=== PATIENT | male | born 1950 | race Caucasian/White ===

== ENCOUNTER 2022-03-09 15:15 | Outpatient (CLI) | payer OTHER, SELFPAY | END 2022-03-09 15:16 | disposition home or self-care (01) | LOC: AMB 03-11 11:31 | PROVIDERS: PCP Physician Assistant Medical; Visit Provider Emergency Medicine | DX: R06.02 Shortness of breath (principal) | CPT/HCPCS: A0425; A0427 ==

== ENCOUNTER 2022-03-09 15:49 | Emergency (ER) | payer OTHER, SELFPAY ==
[2022-03-09] VITALS (38 sets, daily range): BP systolic 107–159; BP diastolic 61–87; PULSE 95–112; RESP 28; TEMP 37.7; O2SAT 90–99
--- NOTE | 2022-03-09 16:38 | CRLHL7_ITS ---
For Patients: As a result of the Cures Act, medical imaging exams and procedure reports are released immediately into your electronic medical record. You may view this report before your referring provider. If you have questions, please contact your health care provider. INDICATION: Chest pain. TECHNIQUE: Chest 1 views. COMPARISON: None. FINDINGS: Cardiovascular and mediastinum: Cardiomediastinal silhouette is within normal limits. Lungs and pleural spaces: Lungs are clear. No sign of pleural effusion. No pneumothorax. Bones and soft tissues: No significant findings. IMPRESSION: No acute cardiopulmonary process identified. Dictated by Cristela Monroe MD @ 03/09/2022 6:36:53 PM (Electronically Signed)
--- NOTE | 2022-03-09 16:46 | ED.WEAKNESS ---
HPI - Weakness General Chief complaint: Weakness Stated complaint: confusion Time Seen by Provider: 03/09/22 16:04 History of Present Illness HPI Narrative: 72-year-old man presenting to the emergency department accompanied by healthcare provider/homemade. Brought by EMS. Concern of weakness. Last seen by her about a week ago but spoken to on the phone 3 or 4 days ago. Today was not answering texts or phone calls. So went up to check on Mr. Meyers though had been scheduled for a visit today anyway. Mr. Meyers took an extremely long time apparently to get to the door. Was clearly weak. Dyspneic. Hard to get information from Mr. Meyers. He does admit to feeling short of air. No pain complaints. No apparent fever. Underlying history of COPD. Usually on 2 L oxygen at home. No new rashes noted. No dysuria or frequency noted. Does have a history of diabetes. Noted blood sugar to be nearly 400. No known falls. Health aide notes that nothing seems particularly amiss or disheveled in the apartment. Related Data Home Medications Medication Instructions Recorded Confirmed albuterol sulfate 90 mcg/actuation inhalation 03/09/22 aerosol inhaler amlodipine 10 mg tablet mg 03/09/22 apixaban 5 mg tablet (Eliquis) mg 03/09/22 atomoxetine 100 mg capsule mg PO 03/09/22 budesonide-formoterol HFA 160 inhalation 03/09/22 mcg-4.5 mcg/actuation aerosol inhaler (Symbicort) calcium carbonate 600 mg-vitamin tab PO 03/09/22 D3 10 mcg (400 unit) tablet carvedilol 3.125 mg tablet mg 03/09/22 clotrimazole-betamethasone 1 applic topical 03/09/22 %-0.05 % topical cream docusate sodium 100 mg capsule mg PO 03/09/22 furosemide 40 mg tablet mg 03/09/22 gabapentin 300 mg capsule mg 03/09/22 insulin aspart U-100 100 unit/mL subcut 03/09/22 (3 mL) subcutaneous pen (Novolog FlexPen U-100 Insulin aspart) insulin glargine 100 unit/mL (3 unit subcut 03/09/22 mL) subcutaneous pen (Lantus Solostar U-100 Insulin) ipratropium 0.5 mg-albuterol 3 mg ml inhalation 03/09/22 (2.5 mg base)/3 mL nebulization soln losartan 100 mg tablet mg 03/09/22 metformin 500 mg tablet mg 03/09/22 propylene glycol 0.6 % eye drops drp 03/09/22 (Systane Complete) rosuvastatin 10 mg tablet mg 03/09/22 tiotropium bromide 2.5 inhalation 03/09/22 mcg/actuation mist for inhalation (Spiriva Respimat) Allergies Allergy/AdvReac Type Severity Reaction Status Date / Time lisinopril Allergy Verified 03/09/22 16:08 Review of Systems Status of ROS: Reports: 10 or more systems reviewed and unremarkable except as noted in History and below [facility] Social History Smoking Status: Former smoker How often do you have a drink containing alcohol: never AUDIT-C Alcohol total score: 0 Non-prescribed substance use: denies use Exam Narrative: Exam Narrative: Pleasant. Little flushed in his face. Slight ptosis of the left eye versus the right. Head looks to be atraumatic. Mildly labored in breathing. Mildly tachypneic. Oropharynx is dry. Lungs with diminished breath sounds some of this might be effort. Trace crepitus generally. There is a subtle wheeze perhaps at times I think on expiration. He places the oximetry finger monitor in his mouth is if feels better to blow again something he indicates. Dentition is little ground down incidentally. Heart is tachycardic. Appears to be in a regular rhythm. Abdomen is obese soft and mildly tense. Nontender. There is some seborrheic type rash in the right lower abdomen. Extremities are dry, especially lower. Not erythematous. Lower extremities with trace dependent edema. Const: Vital Signs, click to edit/add: Vital Signs - 24 hr 03/09/22 16:14 03/09/22 16:18 03/09/22 16:30 Temperature 99.8 F H Pulse Rate 110 H 109 H Pulse Rate [Pulse Oximeter] 112 H Respiratory Rate 28 H Blood Pressure Blood Pressure [Ri ght Upper Arm] 159/75 H Pulse Oximetry 94 97 96 Oxygen Delivery Me thod Nasal Cannula Nasal Cannula Nasal Cannula Oxygen Flow Rate 2 2 03/09/22 16:32 03/09/22 16:49 03/09/22 17:10 Temperature Pulse Rate 108 H 110 H 107 H Pulse Rate [Pulse Oximeter] Respiratory Rate Blood Pressure 130/61 Blood Pressure [Ri ght Upper Arm] Pulse Oximetry 96 95 92 Oxygen Delivery Me thod Nasal Cannula Nasal Cannula Nasal Cannula Oxygen Flow Rate 2 2 2 03/09/22 17:23 03/09/22 17:25 03/09/22 17:30 Temperature Pulse Rate 112 H 110 H 106 H Pulse Rate [Pulse Oximeter] Respiratory Rate Blood Pressure 141/87 H Blood Pressure [Ri ght Upper Arm] Pulse Oximetry 90 93 98 Oxygen Delivery Me thod Nasal Cannula Nasal Cannula Nasal Cannula Oxygen Flow Rate 2 2 2 03/09/22 17:32 03/09/22 17:45 03/09/22 18:00 Temperature Pulse Rate 106 H 107 H 104 H Pulse Rate [Pulse Oximeter] Respiratory Rate Blood Pressure 155/76 H Blood Pressure [Ri ght Upper Arm] Pulse Oximetry 98 96 96 Oxygen Delivery Me thod Nasal Cannula Nasal Cannula Nasal Cannula Oxygen Flow Rate 2 2 2 03/09/22 18:02 03/09/22 18:15 03/09/22 18:30 Temperature Pulse Rate 107 H 108 H 112 H Pulse Rate [Pulse Oximeter] Respiratory Rate Blood Pressure 135/64 Blood Pressure [Ri ght Upper Arm] Pulse Oximetry 96 95 96 Oxygen Delivery Me thod Nasal Cannula Nasal Cannula Nasal Cannula Oxygen Flow Rate 2 2 2 03/09/22 18:32 03/09/22 18:45 03/09/22 19:00 Temperature Pulse Rate 104 H 105 H 102 H Pulse Rate [Pulse Oximeter] Respiratory Rate Blood Pressure 143/67 H Blood Pressure [Ri ght Upper Arm] Pulse Oximetry 96 96 96 Oxygen Delivery Me thod Nasal Cannula Nasal Cannula Nasal Cannula Oxygen Flow Rate 2 2 2 03/09/22 19:02 03/09/22 19:15 03/09/22 19:30 Temperature Pulse Rate 103 H 100 100 Pulse Rate [Pulse Oximeter] Respiratory Rate Blood Pressure 134/75 Blood Pressure [Ri ght Upper Arm] Pulse Oximetry 96 95 96 Oxygen Delivery Me thod Nasal Cannula Nasal Cannula Nasal Cannula Oxygen Flow Rate 2 2 2 03/09/22 19:50 03/09/22 20:00 03/09/22 20:02 Temperature Pulse Rate 95 98 Pulse Rate [Pulse Oximeter] Respiratory Rate Blood Pressure 121/86 Blood Pressure [Ri ght Upper Arm] Pulse Oximetry 95 97 Oxygen Delivery Me thod Nasal Cannula Nasal Cannula Nasal Cannula Oxygen Flow Rate 2 2 2 03/09/22 20:15 03/09/22 20:30 03/09/22 20:34 Temperature Pulse Rate 99 99 99 Pulse Rate [Pulse Oximeter] Respiratory Rate Blood Pressure 131/79 Blood Pressure [Ri ght Upper Arm] Pulse Oximetry 95 97 97 Oxygen Delivery Me thod Nasal Cannula Nasal Cannula Oxygen Flow Rate 2 2 03/09/22 20:49 03/09/22 21:00 03/09/22 21:02 Temperature Pulse Rate 96 96 Pulse Rate [Pulse Oximeter] Respiratory Rate Blood Pressure 107/71 Blood Pressure [Ri ght Upper Arm] Pulse Oximetry 96 97 Oxygen Delivery Me thod Oxygen Flow Rate 03/09/22 21:04 03/09/22 21:20 03/09/22 21:30 Temperature Pulse Rate 96 95 98 Pulse Rate [Pulse Oximeter] Respiratory Rate Blood Pressure Blood Pressure [Ri ght Upper Arm] Pulse Oximetry 97 97 97 Oxygen Delivery Me thod Oxygen Flow Rate 03/09/22 21:33 03/09/22 21:45 03/09/22 22:13 Temperature Pulse Rate 97 95 95 Pulse Rate [Pulse Oximeter] Respiratory Rate Blood Pressure 134/78 Blood Pressure [Ri ght Upper Arm] Pulse Oximetry 98 99 98 Oxygen Delivery Me thod Oxygen Flow Rate 03/09/22 22:15 03/09/22 16:40 Temperature Pulse Rate 97 Pulse Rate [Pulse Oximeter] Respiratory Rate Blood Pressure Blood Pressure [Ri ght Upper Arm] Pulse Oximetry 94 94 Oxygen Delivery Me thod Nasal Cannula Oxygen Flow Rate 2 Documenting provider has reviewed patient's vital signs: yes Course Vital Signs Vital signs: Initial Vital Signs Temperature 99.8 F H 03/09/22 16:14 Temperature Source Temporal Artery Scan 03/09/22 16:14 Pulse Rate 112 H 03/09/22 16:14 Respiratory Rate 28 H 03/09/22 16:14 Blood Pressure 159/75 H 03/09/22 16:14 Blood Pressure Mean 103 03/09/22 16:14 Blood Pressure Position Sitting 03/09/22 16:14 Pulse Oximetry 94 03/09/22 16:14 Oxygen Delivery Method 03/09/22 16:14 Vital Signs Temperature 99.8 F H 03/09/22 16:14 Pulse Rate 112 H 03/09/22 16:14 Respiratory Rate 28 H 03/09/22 16:14 Blood Pressure 159/75 H 03/09/22 16:14 Pulse Oximetry 94 03/09/22 16:14 Oxygen Delivery Method 03/09/22 16:14 Temperature 99.8 F H 03/09/22 16:14 Pulse Rate 97 03/09/22 22:15 Respiratory Rate 28 H 03/09/22 16:14 Blood Pressure 134/78 03/09/22 21:33 Pulse Oximetry 94 03/09/22 22:15 Oxygen Delivery Method 03/09/22 20:30 Oxygen Flow Rate 2 03/09/22 20:30 MDM - Weakness MDM Narrative Medical decision making narrative: With history of COPD and some mild wheeze as well as tachypnea labored breathing, did initiate a duo neb. This did seem to help. Remained though oxygenating well on usual 2 L via nasal cannula. Was given a total of two 500 cc normal saline boluses. Initial lactate 2. Second lactate was drawn only just prior to completing first 500 cc bolus. Recieved one dose of solu-medrol. White count slightly elevated. Unclear if representing infection or stress. Blood sugar elevated. Anticipating further cares as possible admission was just given a single dose of 10 units of regular insulin. Doing time in the emergency department markedly more clear in communication, mentation. [place] he was back to baseline though during conversation with daughter she thought he still seemed a little confused. Mr. Allen felt he was strong enough to return home. Ate a meal. Does not feel this is like his usual COPD exacerbation. Chest x-ray by my read without infiltrate. Unexpectedly d-dimer was elevated and still looking for source for infection, CTA chest was done without finding pulmonary embolus or infiltrate. Sepsis remains in differential. Blood cultures pending. Discussed my concerns and recommendations for admission though he prefers to go home. Given 1 g of Rocephin and initiated on azithromycin. Medical Records Attestation: I reviewed the patient's medical records. Lab Data Attestation: I reviewed the patient's lab results. Labs: Lab Results 03/09/22 03/09/22 03/09/22 Range/Units 16:25 16:25 16:25 WBC 11.80 H (4.50-11.00) K/uL RBC 5.18 (4.30-5.90) m/uL Hgb 14.8 (13.5-17.5) gm/dL Hct 44.9 (37.0-53.0) % MCV 87 (80-100) fL MCH 29 (26-34) pg MCHC 33 (32-36) gm/dL RDW Coeff of Paulino 14.9 (11.5-15.5) % Plt Count 263 (140-440) K/uL Neut % (Auto) 89.6 H (42.0-72.0) % Lymph % (Auto) 4.7 L (20-44) % [place] % (Auto) 5.1 (0.0-11.0) % Eos % (Auto) 0.0 (0.0-7.0) % Baso % (Auto) 0.2 (0.0-3.0) % Neut # (Auto) 10.60 H (1.7-7.0) K/uL Lymph # (Auto) 0.60 L (0.90-2.90) K/uL [place] # (Auto) 0.60 (0.00-0.90) K/UL Eos # (Auto) 0.00 (0.00-0.50) K/uL Baso # (Auto) 0.00 (0.00-0.30) K/uL D-Dimer Quant (PE/DVT) 1.12 H (0.00-0.50) ug/ml VBG pH (7.32-7.43) VBG pCO2 (40-50) mmHG VBG pO2 (25-47) mmHG VBG HCO3 (21-28) mmol/L Sodium 136 (135-149) mmol/L Potassium 4.9 (3.6-5.1) mmol/L Chloride 100 (96-114) mmol/L Carbon Dioxide 27 (20-32) mmol/L BUN 20 (7-30) mg/dL Creatinine 1.0 (0.5-1.5) mg/dL Estimated GFR 81 ml/min Glucose 342 H (60-115) mg/dL Lactate (0.5-1.9) mmol/L Calcium 8.8 (8.4-10.6) mg/dL Total Bilirubin 0.8 (0.1-1.5) mg/dL Direct Bilirubin 0.4 (0.0-0.5) mg/dL AST 43 H (12-35) U/L ALT 46 (4-50) U/L Alkaline Phosphatase 81 (40-150) U/L Troponin I 0.04 (0.01-0.04) ng/mL C-Reactive Protein 6.6 H (0.5-1.0) mg/dL Total Protein 8.1 (6.0-8.3) g/dL Albumin 4.5 (3.3-5.0) g/dL Procalcitonin 0.28 (<0.50) ng/mL Urine Color (Yellow) Urine Appearance (Clear) Urine pH (5.0-8.5) Ur Specific [place] (1.000-1.030) Urine Protein (Negative) Urine Glucose (UA) (Negative) Urine Ketones (Negative) Urine Blood (Negative) Urine Nitrite (Negative) Urine Bilirubin (Negative) Urine Urobilinogen (0.2-1.0) Ur Leukocyte Esterase (Negative) Urine RBC (0-2) Urine WBC (0-5) Ur Squamous Epith Cells (None-Few) Urine Bacteria (None) SARS-CoV-2 (PCR) (Negative) Influenza Type A (PCR) (Negative) Influenza Type B (PCR) (Negative) RSV (PCR) (Negative) POC Troponin I (0.01-0.04) ng/ml 03/09/22 03/09/22 03/09/22 Range/Units 16:25 16:25 16:25 WBC (4.50-11.00) K/uL RBC (4.30-5.90) m/uL Hgb (13.5-17.5) gm/dL Hct (37.0-53.0) % MCV (80-100) fL MCH (26-34) pg MCHC (32-36) gm/dL RDW Coeff of Paulino (11.5-15.5) % Plt Count (140-440) K/uL Neut % (Auto) (42.0-72.0) % Lymph % (Auto) (20-44) % [place] % (Auto) (0.0-11.0) % Eos % (Auto) (0.0-7.0) % Baso % (Auto) (0.0-3.0) % Neut # (Auto) (1.7-7.0) K/uL Lymph # (Auto) (0.90-2.90) K/uL [place] # (Auto) (0.00-0.90) K/UL Eos # (Auto) (0.00-0.50) K/uL Baso # (Auto) (0.00-0.30) K/uL D-Dimer Quant (PE/DVT) (0.00-0.50) ug/ml VBG pH 7.389 (7.32-7.43) VBG pCO2 50 (40-50) mmHG VBG pO2 42.9 (25-47) mmHG VBG HCO3 30 H (21-28) mmol/L Sodium (135-149) mmol/L Potassium (3.6-5.1) mmol/L Chloride (96-114) mmol/L Carbon Dioxide (20-32) mmol/L BUN (7-30) mg/dL Creatinine (0.5-1.5) mg/dL Estimated GFR ml/min Glucose (60-115) mg/dL Lactate 2.0 H (0.5-1.9) mmol/L Calcium (8.4-10.6) mg/dL Total Bilirubin (0.1-1.5) mg/dL Direct Bilirubin (0.0-0.5) mg/dL AST (12-35) U/L ALT (4-50) U/L Alkaline Phosphatase (40-150) U/L Troponin I (0.01-0.04) ng/mL C-Reactive Protein (0.5-1.0) mg/dL Total Protein (6.0-8.3) g/dL Albumin (3.3-5.0) g/dL Procalcitonin (<0.50) ng/mL Urine Color (Yellow) Urine Appearance (Clear) Urine pH (5.0-8.5) Ur Specific [place] (1.000-1.030) Urine Protein (Negative) Urine Glucose (UA) (Negative) Urine Ketones (Negative) Urine Blood (Negative) Urine Nitrite (Negative) Urine Bilirubin (Negative) Urine Urobilinogen (0.2-1.0) Ur Leukocyte Esterase (Negative) Urine RBC (0-2) Urine WBC (0-5) Ur Squamous Epith Cells (None-Few) Urine Bacteria (None) SARS-CoV-2 (PCR) (Negative) Influenza Type A (PCR) (Negative) Influenza Type B (PCR) (Negative) RSV (PCR) (Negative) POC Troponin I 0.02 (0.01-0.04) ng/ml 03/09/22 03/09/22 03/09/22 Range/Units 16:38 16:39 21:20 WBC (4.50-11.00) K/uL RBC (4.30-5.90) m/uL Hgb (13.5-17.5) gm/dL Hct (37.0-53.0) % MCV (80-100) fL MCH (26-34) pg MCHC (32-36) gm/dL RDW Coeff of Paulino (11.5-15.5) % Plt Count (140-440) K/uL Neut % (Auto) (42.0-72.0) % Lymph % (Auto) (20-44) % [place] % (Auto) (0.0-11.0) % Eos % (Auto) (0.0-7.0) % Baso % (Auto) (0.0-3.0) % Neut # (Auto) (1.7-7.0) K/uL Lymph # (Auto) (0.90-2.90) K/uL [place] # (Auto) (0.00-0.90) K/UL Eos # (Auto) (0.00-0.50) K/uL Baso # (Auto) (0.00-0.30) K/uL D-Dimer Quant (PE/DVT) (0.00-0.50) ug/ml VBG pH (7.32-7.43) VBG pCO2 (40-50) mmHG VBG pO2 (25-47) mmHG VBG HCO3 (21-28) mmol/L Sodium (135-149) mmol/L Potassium (3.6-5.1) mmol/L Chloride (96-114) mmol/L Carbon Dioxide (20-32) mmol/L BUN (7-30) mg/dL Creatinine (0.5-1.5) mg/dL Estimated GFR ml/min Glucose (60-115) mg/dL Lactate 2.4 H (0.5-1.9) mmol/L Calcium (8.4-10.6) mg/dL Total Bilirubin (0.1-1.5) mg/dL Direct Bilirubin (0.0-0.5) mg/dL AST (12-35) U/L ALT (4-50) U/L Alkaline Phosphatase (40-150) U/L Troponin I (0.01-0.04) ng/mL C-Reactive Protein (0.5-1.0) mg/dL Total Protein (6.0-8.3) g/dL Albumin (3.3-5.0) g/dL Procalcitonin (<0.50) ng/mL Urine Color Yellow (Yellow) Urine Appearance Clear (Clear) Urine pH 5.5 (5.0-8.5) Ur Specific [place] 1.015 (1.000-1.030) Urine Protein 2+ A (Negative) Urine Glucose (UA) 2+ A (Negative) Urine Ketones 2+ A (Negative) Urine Blood 1+ A (Negative) Urine Nitrite Negative (Negative) Urine Bilirubin Negative (Negative) Urine Urobilinogen 0.2 (0.2-1.0) Ur Leukocyte Esterase Negative (Negative) Urine RBC 0-2 (0-2) Urine WBC 0-2 (0-5) Ur Squamous Epith Cells None (None-Few) Urine Bacteria None (None) SARS-CoV-2 (PCR) Negative SARS-CoV-2 (Negative) Influenza Type A (PCR) Negative PCR FLU A (Negative) Influenza Type B (PCR) Negative PCR FLU B (Negative) RSV (PCR) Negative PCR RSV (Negative) POC Troponin I (0.01-0.04) ng/ml Discharge Plan Discharge Clinical Impression: Hyperglycemia, SIRS (systemic inflammatory response syndrome), Altered mental status, Dehydration Patient Disposition: Home, Self-Care Condition: Improved Additional Instructions: As I said I am concerned that he might have a more serious infection; possibly bacteria in your blood. I agree that you look much better at this point. I respect that you want to go home instead of be admitted. I would like you to focus on hydration with unsugared liquids, ideally water. You need to watch your blood sugars very carefully checking at least 4 times a day over the next few days. Blood cultures are pending here. For now given the pulmonary presentation, take the azithromycin from [facility] as prescribed starting 1st dose tonight. Prescriptions: No Action furosemide 40 mg tablet metformin 500 mg tablet ipratropium-albuterol 0.5 mg-3 mg(2.5 mg base)/3 mL solution for nebulization INHALATION carvedilol 3.125 mg tablet amlodipine 10 mg tablet clotrimazole-betamethasone 1-0.05 % cream TOPICAL docusate sodium 100 mg capsule PO gabapentin 300 mg capsule albuterol sulfate 90 mcg/actuation HFA aerosol inhaler INHALATION losartan 100 mg tablet insulin aspart U-100 [Novolog FlexPen U-100 Insulin] 100 unit/mL (3 mL) insulin pen SUBCUT rosuvastatin 10 mg tablet atomoxetine 100 mg capsule PO calcium carbonate-vitamin D3 600 mg-10 mcg (400 unit) tablet PO budesonide-formoterol [Symbicort] 160-4.5 mcg/actuation HFA aerosol inhaler INHALATION insulin glargine [Lantus Solostar U-100 Insulin] 100 unit/mL (3 mL) insulin pen SUBCUT Systane Complete 0.6 % drops Label Comments: INSTILL ONE DROP INTO BOTH EYES NEEDED Spiriva Respimat 2.5 mcg/actuation mist INHALATION Eliquis 5 mg tablet Follow Up/Referrals: Karen Ibarra PA-C [Primary Care Provider] - Stand Alone Forms: [employer] Info Instructions
[2022-03-09 16:50] LABS: Troponin, Point-of-Care* 0.02 ng/ml (0.01-0.04)
[2022-03-09 17:07] LABS: PCO2 VBG 50 mmHG (40-50); PO2 VBG 42.9 mmHG (25-47); pH VBG 7.389 (7.32-7.43)
[2022-03-09 17:08] LABS: HCO3 VBG 30 mmol/L (21-28)
[2022-03-09 17:13] LABS: Basophils Percent Auto 0.2 % (0.0-3.0); Hematocrit 44.9 % (37.0-53.0); Hemoglobin* 14.8 gm/dL (13.5-17.5); Immature Granulocytes Pct Auto 0.4 %; Lymphocytes Percent Auto 4.7 % (20-44); Mean Corpuscular HGB Conc 33 gm/dL (32-36); Mean Corpuscular Hemoglobin 29 pg (26-34); Mean Corpuscular Volume 87 fL (80-100); Monocytes Percent Auto 5.1 % (0.0-11.0); Neutrophils Percent Auto 89.6 % (42.0-72.0); Platelet Count* 263 K/uL (140-440); RDW Coefficient of Variation % 14.9 % (11.5-15.5); Red Blood Count 5.18 m/uL (4.30-5.90)
[2022-03-09 17:15] LABS: Slide Review Reflex No
[2022-03-09] MEDS: IPRAT-ALBUT 0.5-2.5 MG/3 ML NEB 1 NEB IH (17:25)
[2022-03-09 17:33] LABS: Albumin* 4.5 g/dL (3.3-5.0); Chloride* 100 mmol/L (96-114); Sodium* 136 mmol/L (135-149)
[2022-03-09 17:34] LABS: Potassium* 4.9 mmol/L (3.6-5.1)
[2022-03-09 17:34] LABS: Appearance Urine Clear (Clear); Bilirubin Urine Negative (Negative); Blood Urine 1+ (Negative); Color Urine Yellow (Yellow); Glucose Urine 2+ (Negative); Ketones Urine 2+ (Negative); Leukocyte Esterase Urine Negative (Negative); Nitrite Urine Negative (Negative); Protein Urine 2+ (Negative); Specific Gravity Urine 1.015 (1.000-1.030); Urobilinogen Urine 0.2 (0.2-1.0); pH Urine 5.5 (5.0-8.5)
[2022-03-09 17:35] LABS: Estimated Glomerular Filt Rate 81 ml/min
[2022-03-09 17:36] LABS: Alanine Aminotransferase* 46 U/L (4-50); Alkaline Phosphatase* 81 U/L (40-150); Aspartate Amino Transferase* 43 U/L (12-35); Bilirubin Direct* 0.4 mg/dL (0.0-0.5); Bilirubin Total* 0.8 mg/dL (0.1-1.5); Blood Urea Nitrogen* 20 mg/dL (7-30); Carbon Dioxide* 27 mmol/L (20-32); Total Protein* 8.1 g/dL (6.0-8.3)
[2022-03-09 17:37] LABS: Calcium* 8.8 mg/dL (8.4-10.6); D Dimer Quantitative* 1.12 ug/ml (0.00-0.50); Glucose* 342 mg/dL (60-115)
[2022-03-09 17:39] LABS: C Reactive Protein* 6.6 mg/dL (0.5-1.0)
[2022-03-09 17:45] LABS: PCR FLU A Negative PCR FLU A (Negative); PCR FLU B Negative PCR FLU B (Negative); PCR RSV Negative PCR RSV (Negative)
[2022-03-09 17:48] LABS: SARS PCR* Negative SARS-CoV-2 (Negative)
[2022-03-09 17:48] LABS: Troponin I* 0.04 ng/mL (0.01-0.04)
[2022-03-09 17:53] LABS: Procalcitonin* 0.28 ng/mL (<0.50)
[2022-03-09 18:26] LABS: RBC Urine 0-2 (0-2); WBC Urine 0-2 (0-5)
--- NOTE | 2022-03-09 19:04 | CRLHL7_ITS ---
For Patients: As a result of the Cures Act, medical imaging exams and procedure reports are released immediately into your electronic medical record. You may view this report before your referring provider. If you have questions, please contact your health care provider. INDICATION: Dyspnea, altered mental status. TECHNIQUE: CT chest pulmonary angiogram acquired with IV contrast, 95mL of Isovue 370. Coronal and sagittal reformats. COMPARISON: Earlier same day chest radiograph. FINDINGS: Central airways patent. Diffuse bronchial wall thickening. Moderate emphysema. No focal pulmonary opacity, pneumothorax, or pleural effusion. No pulmonary arterial filling defect identified. Normal cardiac size. No pericardial effusion or thoracic lymphadenopathy. The thoracic aorta is patent and normal caliber without dissection. The imaged upper abdomen demonstrates diffuse hepatic steatosis. No suspicious osseous lesion. IMPRESSION: 1. No evidence of pulmonary embolism or acute thoracic findings. 2. Emphysema and diffuse bronchial wall thickening as may be seen with bronchitis. Dictated by Darrel Thapa MD @ 03/09/2022 8:05:29 PM Please note that all CT scans at this facility use dose modulation, iterative reconstruction, and/or weight-based dosing when appropriate to reduce radiation dose to as low as reasonably achievable. Dictated by: Darrel Thapa MD @ 03/09/2022 20:05:41 (Electronically Signed)
[2022-03-09] MEDS: 0.9 % SODIUM CHLORIDE 500 ML 500 ML IV ×2 (20:15→21:25)
[2022-03-09] MEDS: GABAPENTIN 300 MG CAPSULE 600 MG PO (20:30)
[2022-03-09] MEDS: carvediloL 6.25 MG TABLET 3.125 MG PO (20:40)
[2022-03-09 21:22] LABS: Lactate* 2.4 mmol/L (0.5-1.9)
[2022-03-09] MEDS: METHYLPREDNISOLONE SOD SUCC 40 MG/ML 60 MG IVP (21:40)
[2022-03-09] MEDS: cefTRIAXone 1 GM in 0.9 % SODIUM CHLORIDE Mini-bag 100 ML IVPB (21:54)
== END 2022-03-09 23:02 | disposition home or self-care (01) ==
PROVIDERS: Emergency Provider Family Medicine; PCP Physician Assistant Medical
DX: R73.9 Hyperglycemia, unspecified (principal); R65.10 Systemic inflammatory response syndrome (SIRS) of non-infectious origin without acute organ dysfunction; R41.82 Altered mental status, unspecified
CPT/HCPCS: 36415; 71045; 71260; 80048; 80076; 81001; 82803; 82962; 83605; 84145; 84484; 85025; 85379; 86140; 87040; 87502; 87634; 87635; 94640; 96365; 96375; 99285; A9270; J0696; J2920; J7120; Q9967

== ENCOUNTER 2022-07-23 09:27 | Outpatient (CLI) | payer OTHER, SELFPAY | END 2022-07-23 09:28 | disposition home or self-care (01) | LOC: WOUND 09:27 | PROVIDERS: PCP Physician Assistant Medical; Visit Provider Nurse Practitioner Family | DX: E11.622 Type 2 diabetes mellitus with other skin ulcer (principal); L97.811 Non-pressure chronic ulcer of other part of right lower leg limited to breakdown of skin; L97.821 Non-pressure chronic ulcer of other part of left lower leg limited to breakdown of skin; L03.115 Cellulitis of right lower limb; L03.116 Cellulitis of left lower limb; I87.2 Venous insufficiency (chronic) (peripheral); Z79.4 Long term (current) use of insulin; Z79.84 Long term (current) use of oral hypoglycemic drugs | CPT/HCPCS: 99214 ==

== ENCOUNTER 2022-07-26 15:16 | Outpatient (CLI) | payer OTHER, SELFPAY | END 2022-07-26 15:17 | disposition home or self-care (01) | LOC: WOUND 15:16 | PROVIDERS: PCP Physician Assistant Medical; Visit Provider Nurse Practitioner Family | DX: E11.622 Type 2 diabetes mellitus with other skin ulcer (principal); L97.811 Non-pressure chronic ulcer of other part of right lower leg limited to breakdown of skin; L97.821 Non-pressure chronic ulcer of other part of left lower leg limited to breakdown of skin; I87.2 Venous insufficiency (chronic) (peripheral); Z79.4 Long term (current) use of insulin; Z79.84 Long term (current) use of oral hypoglycemic drugs | CPT/HCPCS: 29581 ==

== ENCOUNTER 2022-07-27 08:42 | Outpatient (CLI) | payer OTHER, SELFPAY | END 2022-07-27 08:43 | disposition home or self-care (01) | LOC: WOUND 08:42 | PROVIDERS: PCP Physician Assistant Medical; Visit Provider Nurse Practitioner Family | DX: I87.2 Venous insufficiency (chronic) (peripheral) (principal); L97.811 Non-pressure chronic ulcer of other part of right lower leg limited to breakdown of skin; L97.821 Non-pressure chronic ulcer of other part of left lower leg limited to breakdown of skin | CPT/HCPCS: 29581 ==

== ENCOUNTER 2022-08-02 10:52 | Outpatient (CLI) | payer OTHER, SELFPAY | END 2022-08-02 10:53 | disposition home or self-care (01) | PROVIDERS: PCP Physician Assistant Medical; Visit Provider Nurse Practitioner Family | DX: I87.2 Venous insufficiency (chronic) (peripheral) (principal); L97.821 Non-pressure chronic ulcer of other part of left lower leg limited to breakdown of skin; L97.811 Non-pressure chronic ulcer of other part of right lower leg limited to breakdown of skin; L03.115 Cellulitis of right lower limb; L03.116 Cellulitis of left lower limb | CPT/HCPCS: 87070; 97597; 97598; 99211 ==

== ENCOUNTER 2022-08-05 10:57 | Outpatient (CLI) | payer OTHER, SELFPAY | END 2022-08-05 10:58 | disposition home or self-care (01) | LOC: WOUND 10:57 | PROVIDERS: PCP Physician Assistant Medical; Visit Provider Family Medicine | DX: I87.2 Venous insufficiency (chronic) (peripheral) (principal); L97.811 Non-pressure chronic ulcer of other part of right lower leg limited to breakdown of skin; L97.821 Non-pressure chronic ulcer of other part of left lower leg limited to breakdown of skin; L03.115 Cellulitis of right lower limb; L03.116 Cellulitis of left lower limb | CPT/HCPCS: 99213 ==

== ENCOUNTER 2022-08-10 09:13 | Outpatient (CLI) | payer OTHER, SELFPAY | END 2022-08-10 09:14 | disposition home or self-care (01) | LOC: WOUND 09:13 | PROVIDERS: PCP Physician Assistant Medical; Visit Provider Family Medicine | DX: I87.2 Venous insufficiency (chronic) (peripheral) (principal); L03.115 Cellulitis of right lower limb; L03.116 Cellulitis of left lower limb; L97.811 Non-pressure chronic ulcer of other part of right lower leg limited to breakdown of skin; L97.821 Non-pressure chronic ulcer of other part of left lower leg limited to breakdown of skin; E11.622 Type 2 diabetes mellitus with other skin ulcer | CPT/HCPCS: 99214 ==

== ENCOUNTER 2022-08-13 11:26 | Outpatient (CLI) | payer OTHER, SELFPAY | END 2022-08-13 11:27 | disposition home or self-care (01) | LOC: WOUND 11:26 | PROVIDERS: PCP Physician Assistant Medical; Visit Provider Nurse Practitioner Family | DX: I87.2 Venous insufficiency (chronic) (peripheral) (principal); L97.811 Non-pressure chronic ulcer of other part of right lower leg limited to breakdown of skin; E11.622 Type 2 diabetes mellitus with other skin ulcer; L97.821 Non-pressure chronic ulcer of other part of left lower leg limited to breakdown of skin | CPT/HCPCS: 97597 ==

== ENCOUNTER 2022-08-20 10:48 | Outpatient (CLI) | payer OTHER, SELFPAY | END 2022-08-20 10:49 | disposition home or self-care (01) | LOC: WOUND 10:48 | PROVIDERS: PCP Physician Assistant Medical; Visit Provider Nurse Practitioner Family | DX: I89.0 Lymphedema, not elsewhere classified (principal); I87.2 Venous insufficiency (chronic) (peripheral); L97.811 Non-pressure chronic ulcer of other part of right lower leg limited to breakdown of skin; L97.821 Non-pressure chronic ulcer of other part of left lower leg limited to breakdown of skin; E11.622 Type 2 diabetes mellitus with other skin ulcer; Z79.4 Long term (current) use of insulin | CPT/HCPCS: 99213; 99214 ==

== ENCOUNTER 2022-08-27 10:52 | Outpatient (CLI) | payer OTHER, SELFPAY | END 2022-08-27 10:53 | disposition home or self-care (01) | LOC: WOUND 10:52 | PROVIDERS: PCP Physician Assistant Medical; Visit Provider Nurse Practitioner Family | DX: I87.2 Venous insufficiency (chronic) (peripheral) (principal); L97.812 Non-pressure chronic ulcer of other part of right lower leg with fat layer exposed; I89.0 Lymphedema, not elsewhere classified | CPT/HCPCS: 97597 ==

== ENCOUNTER 2022-09-03 12:38 | Outpatient (CLI) | payer OTHER, SELFPAY | END 2022-09-03 12:39 | disposition home or self-care (01) | LOC: WOUND 12:38 | PROVIDERS: PCP Physician Assistant Medical; Visit Provider Nurse Practitioner Family | DX: E11.622 Type 2 diabetes mellitus with other skin ulcer (principal); L97.811 Non-pressure chronic ulcer of other part of right lower leg limited to breakdown of skin; L97.821 Non-pressure chronic ulcer of other part of left lower leg limited to breakdown of skin; I89.0 Lymphedema, not elsewhere classified; I87.2 Venous insufficiency (chronic) (peripheral); Z79.4 Long term (current) use of insulin | CPT/HCPCS: 99212 ==

== ENCOUNTER 2022-09-15 12:38 | Outpatient (CLI) | payer OTHER, SELFPAY | END 2022-09-15 12:39 | disposition home or self-care (01) | LOC: WOUND 12:38 | PROVIDERS: PCP Physician Assistant Medical; Visit Provider Surgery | DX: S81.801A Unspecified open wound, right lower leg, initial encounter (principal); L03.115 Cellulitis of right lower limb; I89.0 Lymphedema, not elsewhere classified | CPT/HCPCS: 97597; 99213 ==

== ENCOUNTER 2022-09-17 14:22 | Outpatient (CLI) | payer OTHER, SELFPAY | END 2022-09-17 14:23 | disposition home or self-care (01) | LOC: WOUND 14:22 | PROVIDERS: PCP Physician Assistant Medical; Visit Provider Surgery | DX: I87.331 Chronic venous hypertension (idiopathic) with ulcer and inflammation of right lower extremity (principal); L97.819 Non-pressure chronic ulcer of other part of right lower leg with unspecified severity | CPT/HCPCS: 99212 ==

== ENCOUNTER 2022-09-20 15:32 | Outpatient (CLI) | payer OTHER, SELFPAY | END 2022-09-20 15:33 | disposition home or self-care (01) | LOC: WOUND 15:32 | PROVIDERS: PCP Physician Assistant Medical; Visit Provider Surgery | DX: I87.331 Chronic venous hypertension (idiopathic) with ulcer and inflammation of right lower extremity (principal); L97.819 Non-pressure chronic ulcer of other part of right lower leg with unspecified severity | CPT/HCPCS: 99212 ==

== ENCOUNTER 2022-09-22 14:43 | Outpatient (CLI) | payer OTHER, SELFPAY | END 2022-09-22 14:44 | disposition home or self-care (01) | LOC: WOUND 14:43 | PROVIDERS: PCP Physician Assistant Medical; Visit Provider Surgery | DX: I87.331 Chronic venous hypertension (idiopathic) with ulcer and inflammation of right lower extremity (principal); E11.622 Type 2 diabetes mellitus with other skin ulcer; L97.818 Non-pressure chronic ulcer of other part of right lower leg with other specified severity; Z79.4 Long term (current) use of insulin; Z79.84 Long term (current) use of oral hypoglycemic drugs | CPT/HCPCS: 99213 ==

== ENCOUNTER 2022-09-24 14:51 | Outpatient (CLI) | payer OTHER, SELFPAY | END 2022-09-24 14:52 | disposition home or self-care (01) | LOC: WOUND 14:51 | PROVIDERS: PCP Physician Assistant Medical; Visit Provider Surgery | DX: I87.331 Chronic venous hypertension (idiopathic) with ulcer and inflammation of right lower extremity (principal); L97.818 Non-pressure chronic ulcer of other part of right lower leg with other specified severity | CPT/HCPCS: 99212 ==

== ENCOUNTER 2022-09-27 15:37 | Outpatient (CLI) | payer OTHER, SELFPAY | END 2022-09-27 15:38 | disposition home or self-care (01) | LOC: WOUND 15:37 | PROVIDERS: PCP Physician Assistant Medical; Visit Provider Surgery | DX: I87.331 Chronic venous hypertension (idiopathic) with ulcer and inflammation of right lower extremity (principal); L97.818 Non-pressure chronic ulcer of other part of right lower leg with other specified severity | CPT/HCPCS: 99211 ==

== ENCOUNTER 2022-09-29 15:18 | Outpatient (CLI) | payer OTHER, SELFPAY | END 2022-09-29 15:19 | disposition home or self-care (01) | LOC: WOUND 15:18 | PROVIDERS: PCP Physician Assistant Medical; Visit Provider Surgery | DX: E11.622 Type 2 diabetes mellitus with other skin ulcer (principal); L97.819 Non-pressure chronic ulcer of other part of right lower leg with unspecified severity; I89.0 Lymphedema, not elsewhere classified; Z79.4 Long term (current) use of insulin; Z79.84 Long term (current) use of oral hypoglycemic drugs | CPT/HCPCS: 97597; 99213 ==

== ENCOUNTER 2022-10-04 07:57 | Outpatient (CLI) | payer OTHER, SELFPAY | END 2022-10-04 07:58 | disposition home or self-care (01) | LOC: WOUND 07:57 | PROVIDERS: PCP Physician Assistant Medical; Visit Provider Surgery | DX: I87.331 Chronic venous hypertension (idiopathic) with ulcer and inflammation of right lower extremity (principal); L97.819 Non-pressure chronic ulcer of other part of right lower leg with unspecified severity; I89.0 Lymphedema, not elsewhere classified | CPT/HCPCS: 99212 ==

== ENCOUNTER 2022-10-06 14:52 | Outpatient (CLI) | payer OTHER, SELFPAY | END 2022-10-06 14:53 | disposition home or self-care (01) | LOC: WOUND 14:53 | PROVIDERS: PCP Physician Assistant Medical; Visit Provider Surgery | DX: I87.331 Chronic venous hypertension (idiopathic) with ulcer and inflammation of right lower extremity (principal); E11.622 Type 2 diabetes mellitus with other skin ulcer; L97.819 Non-pressure chronic ulcer of other part of right lower leg with unspecified severity; I89.0 Lymphedema, not elsewhere classified; Z79.4 Long term (current) use of insulin; Z79.84 Long term (current) use of oral hypoglycemic drugs | CPT/HCPCS: 97597 ==

== ENCOUNTER 2022-10-08 15:23 | Outpatient (CLI) | payer OTHER, SELFPAY | END 2022-10-08 15:24 | disposition home or self-care (01) | LOC: WOUND 15:23 | PROVIDERS: PCP Physician Assistant Medical; Visit Provider Surgery | DX: I87.331 Chronic venous hypertension (idiopathic) with ulcer and inflammation of right lower extremity (principal); L97.819 Non-pressure chronic ulcer of other part of right lower leg with unspecified severity | CPT/HCPCS: 99212 ==

== ENCOUNTER 2022-10-13 15:20 | Outpatient (CLI) | payer OTHER, SELFPAY | END 2022-10-13 15:21 | disposition home or self-care (01) | LOC: WOUND 15:20 | PROVIDERS: PCP Physician Assistant Medical; Visit Provider Surgery | DX: I87.331 Chronic venous hypertension (idiopathic) with ulcer and inflammation of right lower extremity (principal); E11.622 Type 2 diabetes mellitus with other skin ulcer; L97.819 Non-pressure chronic ulcer of other part of right lower leg with unspecified severity; I89.0 Lymphedema, not elsewhere classified; Z79.4 Long term (current) use of insulin; Z79.84 Long term (current) use of oral hypoglycemic drugs | CPT/HCPCS: 99212 ==

== ENCOUNTER 2022-11-21 17:37 | Outpatient (CLI) | payer OTHER, SELFPAY | END 2022-11-21 17:38 | disposition home or self-care (01) | LOC: AMB 11-24 15:43 | PROVIDERS: PCP Physician Assistant Medical; Visit Provider Family Medicine | DX: R06.02 Shortness of breath (principal) | CPT/HCPCS: A0425; A0427 ==

== ENCOUNTER 2022-11-21 18:00 | Emergency (ER) | payer OTHER, SELFPAY ==
[2022-11-21 18:05] VITALS: BP 147/89; PULSE 84; RESP 20; TEMP 36.8; O2SAT 95; BMI 40.4
--- NOTE | 2022-11-21 18:20 | CRLHL7_ITS ---
For Patients: As a result of the Cures Act, medical imaging exams and procedure reports are released immediately into your electronic medical record. You may view this report before your referring provider. If you have questions, please contact your health care provider. Indication: Shortness breath Comparison: Single view chest March 09, 2022 Technique: PA and lateral views of the chest Findings: There are mildly increased interstitial markings likely representing minimal central bronchial thickening. No dense consolidation, effusion or pneumothorax. The cardiac silhouette is mildly prominent. The bony thorax is grossly intact. Impression: Mildly increased interstitial markings likely representing mild bronchial thickening and/or pulmonary vascular congestion. No dense consolidation. Dictated by Jose Zaldivar MD @ 11/21/2022 7:46:12 PM (Electronically Signed)
--- NOTE | 2022-11-21 18:22 | ED_ITS ---
HPI - General Adult General Chief complaint: Shortness of Breath/Dyspnea Stated complaint: Short of breath Time Seen by Provider: 11/21/22 18:03 Source: patient Mode of arrival: EMS Limitations: no limitations History of Present Illness HPI narrative: 72-year-old male coming in today complaining of increasing cough and shortness of breath. Patient has oxygen dependent COPD he. He tells me he has not had to turn up his oxygen in the last couple days. He is concerned because 2 days ago he accidentally inhaled a Colace tablet and since then his cough has increased. The cough comes and makes him feel quite short of breath. Denies fevers or chills. No changes in his appetite. No changes in his ability to do his ADLs. He does take multiple inhalers as well as DuoNebs, took a DuoNeb just prior to coming to the ED today. Past medical history significant for oxygen-dependent COPD, diabetes type 2, paroxysmal atrial flutter per the patient. He is on anticoagulation. Related Data Home Medications Medication Instructions Recorded Confirmed albuterol sulfate 90 mcg/actuation inhalation 03/09/22 07/08/22 aerosol inhaler amlodipine 10 mg tablet mg 03/09/22 07/08/22 apixaban 5 mg tablet (Eliquis) mg 03/09/22 07/08/22 atomoxetine 100 mg capsule mg PO 03/09/22 07/08/22 budesonide-formoterol HFA 160 inhalation 03/09/22 07/08/22 mcg-4.5 mcg/actuation aerosol inhaler (Symbicort) calcium carbonate 600 mg-vitamin tab PO 03/09/22 07/08/22 D3 10 mcg (400 unit) tablet carvedilol 3.125 mg tablet mg 03/09/22 07/08/22 clotrimazole-betamethasone 1 applic topical 03/09/22 07/08/22 %-0.05 % topical cream docusate sodium 100 mg capsule mg PO 03/09/22 07/08/22 furosemide 40 mg tablet mg 03/09/22 07/08/22 gabapentin 300 mg capsule mg 03/09/22 07/08/22 insulin aspart U-100 100 unit/mL subcut 03/09/22 07/08/22 (3 mL) subcutaneous pen (Novolog FlexPen U-100 Insulin aspart) insulin glargine 100 unit/mL (3 unit subcut 03/09/22 07/08/22 mL) subcutaneous pen (Lantus Solostar U-100 Insulin) ipratropium 0.5 mg-albuterol 3 mg ml inhalation 03/09/22 07/08/22 (2.5 mg base)/3 mL nebulization soln losartan 100 mg tablet mg 03/09/22 07/08/22 metformin 500 mg tablet mg 03/09/22 07/08/22 propylene glycol 0.6 % eye drops drp 03/09/22 07/08/22 (Systane Complete) rosuvastatin 10 mg tablet mg 03/09/22 07/08/22 tiotropium bromide 2.5 inhalation 03/09/22 07/08/22 mcg/actuation mist for inhalation (Spiriva Respimat) Previous Rx's Medication Instructions Recorded doxycycline hyclate 100 mg capsule 100 mg PO Q12H #14 caps 09/15/22 prednisone 20 mg tablet 20 mg PO DIRECTED 9 days #18 11/21/22 tabs Allergies Allergy/AdvReac Type Severity Reaction Status Date / Time lisinopril Allergy Verified 07/08/22 16:21 Review of Systems Status of ROS: Reports: 10 or more systems reviewed and unremarkable except as noted in History and below PFSH [facility] Social History Smoking Status: Former smoker How often do you have a drink containing alcohol: never AUDIT-C Alcohol total score: 0 Non-prescribed substance use: denies use Exam Narrative: Exam Narrative: Obese, well-developed, slightly disheveled patient in no acute distress. Alert and oriented x3. Answers questions appropriately. Mood and affect are appropriate. Thoughts are goal oriented and rational. No tangential or magical thinking noted. Patient speaks in full sentences without needing to catch his breath. HEENT: Normocephalic atraumatic. Pupils are equally round reactive to light. Extraocular muscles are intact. Conjunctivae are moist without any icterus noted. Moist mucous membranes. Cardiovascular: Heart is irregularly irregular, S1 and S2 are present without any murmurs. Lungs: Mainly clear to auscultation bilaterally he has extremely faint end- expiratory wheezes present right greater than the left. Patient takes deep breaths without any discomfort. Abdomen: Soft and nontender nondistended with normal bowel sounds. Protuberan t. No guarding or rebound. Extremities: Bilateral lower extremities show 1+ pitting edema bilaterally Skin: Well perfused without any obvious rashes. Const: Vital Signs, click to edit/add: Vital Signs - 24 hr 11/21/22 18:05 11/21/22 19:07 Temperature 98.3 F Pulse Rate [Right Pulse Oximeter] 84 Respiratory Rate 20 18 Blood Pressure [Ri ght Upper Arm] 147/89 H 147/89 H Pulse Oximetry 95 98 Oxygen Delivery Me thod Nasal Cannula Nasal Cannula Oxygen Flow Rate 2 2 Course Course ED Course: Lab work was unremarkable. Chest x-ray, read by me, does not show any acute infiltrates. EKG showed atrial fibrillation with a pulse of 85. We discussed putting him on a steroid to see if this will improve her shortness of breath and cough. I do not see no evidence of pneumonia. I do not see any need for antibiotics at this time. Vital Signs Vital signs: Initial Vital Signs Temperature 98.3 F 11/21/22 18:05 Temperature Source Temporal Artery Scan 11/21/22 18:05 Pulse Rate 84 11/21/22 18:05 Pulse Rhythm Regular 11/21/22 18:05 Pulse Strength 3+ Normal 11/21/22 18:05 Respiratory Rate 20 11/21/22 18:05 Blood Pressure 147/89 H 11/21/22 18:05 Blood Pressure Mean 108 H 11/21/22 18:05 Blood Pressure Position Supine 11/21/22 18:05 Pulse Oximetry 95 11/21/22 18:05 Oxygen Delivery Method Nasal Cannula 11/21/22 18:05 Oxygen Flow Rate 2 11/21/22 18:05 Vital Signs Temperature 98.3 F 11/21/22 18:05 Pulse Rate 84 11/21/22 18:05 Respiratory Rate 20 11/21/22 18:05 Blood Pressure 147/89 H 11/21/22 18:05 Pulse Oximetry 95 11/21/22 18:05 Oxygen Delivery Method Nasal Cannula 11/21/22 18:05 Oxygen Flow Rate 2 11/21/22 18:05 Temperature 98.3 F 11/21/22 18:05 Pulse Rate 84 11/21/22 18:05 Respiratory Rate 18 11/21/22 19:07 Blood Pressure 147/89 H 11/21/22 19:07 Pulse Oximetry 98 11/21/22 19:07 Oxygen Delivery Method Nasal Cannula 11/21/22 19:07 Oxygen Flow Rate 2 11/21/22 19:07 Medical Decision Making MDM Narrative Medical decision making narrative: 72-year-old male with cough, probable COPD exacerbation. Will treat with oral steroids. Patient has inhalers and DuoNebs at home which she will continue to take on an as-needed basis. He does have an appoint with primary care scheduled for this Tuesday which he is instructed to keep. Return to the ER if symptoms are getting worse instead of better. Medical Records Medical records reviewed: Yes I reviewed the patient's medical records Lab Data Lab results reviewed: Yes I reviewed the patient's lab results Labs: Lab Results 11/21/22 Range/Units 18:33 WBC 8.62 (4.50-11.00) K/uL RBC 4.57 (4.30-5.90) m/uL Hgb 12.5 L (13.5-17.5) gm/dL Hct 40.5 (37.0-53.0) % MCV 89 (80-100) fL MCH 27 (26-34) pg MCHC 31 L (32-36) gm/dL RDW Coeff of Paulino 14.2 (11.5-15.5) % Plt Count 360 (140-440) K/uL Neut % (Auto) 72.4 H (42.0-72.0) % Lymph % (Auto) 16.9 L (20-44) % [place] % (Auto) 6.6 (0.0-11.0) % Eos % (Auto) 3.7 (0.0-7.0) % Baso % (Auto) 0.3 (0.0-3.0) % Neut # (Auto) 6.20 (1.7-7.0) K/uL Lymph # (Auto) 1.50 (0.90-2.90) K/uL [place] # (Auto) 0.60 (0.00-0.90) K/UL Eos # (Auto) 0.32 (0.00-0.50) K/uL Baso # (Auto) 0.03 (0.00-0.30) K/uL Abs Immat Gran (auto) 0.01 (0.00-0.30) K/uL Imm/Tot Granulo (auto) 0.1 % Sodium 140 (135-149) mmol/L Potassium 4.6 (3.6-5.1) mmol/L Chloride 105 (96-114) mmol/L Carbon Dioxide 30 (20-32) mmol/L Anion Gap 5 L (7-15) mEq/L BUN 10 (7-30) mg/dL Creatinine 0.6 (0.5-1.5) mg/dL Estimated Creat Clear 66.50 Estimated GFR 104 ml/min Glucose 137 H (60-115) mg/dL Calcium 8.8 (8.4-10.6) mg/dL C-Reactive Protein 2.8 H (0.5-1.0) mg/dL Imaging Data Chest x-ray: Attestation: I have reviewed the pertinent imaging results. Radiologist's impression: Comparison: Single view chest March 09, 2022 Technique: PA and lateral views of the chest Findings: There are mildly increased interstitial markings likely representing minimal central bronchial thickening. No dense consolidation, effusion or pneumothorax. The cardiac silhouette is mildly prominent. The bony thorax is grossly intact. Impression: Mildly increased interstitial markings likely representing mild bronchial thickening and/or pulmonary vascular congestion. No dense consolidation. ECG Data Attestation: I personally reviewed and interpreted this ECG as follows: Discharge Plan Discharge Clinical Impression: Atrial fibrillation, COPD exacerbation Patient Disposition: Home, Self-Care Condition: Stable Additional Instructions: Lab work was unremarkable today. Your chest x-ray did not show any evidence of pneumonia. Your EKG did show atrial fibrillation with a pulse of 85. Take all steroid as prescribed. Can pickup driver the prescription tomorrow morning and start then as you were given a dose in the ER today. Follow-up with primary care on Tuesday as scheduled. Return to the emergency room if you feel that you are getting worse instead of better. Prescriptions: New prednisone 20 mg tablet 20 mg PO DIRECTED 9 Days Qty: 18 0RF Rx Instructions: 60 mg p.o. daily for 3 days (3 tablets daily on day 1-3), 40 mg daily for 3 days (2 tablets daily on days 4-6), 20 mg daily for 3 days (1 tablet daily on days 7-9). No Action doxycycline hyclate 100 mg capsule 100 mg PO Q12H Qty: 14 0RF furosemide 40 mg tablet metformin 500 mg tablet ipratropium-albuterol 0.5 mg-3 mg(2.5 mg base)/3 mL solution for nebulization INHALATION carvedilol 3.125 mg tablet amlodipine 10 mg tablet clotrimazole-betamethasone 1-0.05 % cream TOPICAL docusate sodium 100 mg capsule PO gabapentin 300 mg capsule albuterol sulfate 90 mcg/actuation HFA aerosol inhaler INHALATION losartan 100 mg tablet insulin aspart U-100 [Novolog FlexPen U-100 Insulin] 100 unit/mL (3 mL) insulin pen SUBCUT rosuvastatin 10 mg tablet atomoxetine 100 mg capsule PO calcium carbonate-vitamin D3 600 mg-10 mcg (400 unit) tablet PO budesonide-formoterol [Symbicort] 160-4.5 mcg/actuation HFA aerosol inhaler INHALATION insulin glargine [Lantus Solostar U-100 Insulin] 100 unit/mL (3 mL) insulin pen SUBCUT Systane Complete 0.6 % drops Patient Comments: INSTILL ONE DROP INTO BOTH EYES NEEDED Spiriva Respimat 2.5 mcg/actuation mist INHALATION Eliquis 5 mg tablet Follow Up/Referrals: Karen Ibarra, PASasha [Primary Care Provider] - Stand Alone Forms: [email or web address] Info Instructions
[2022-11-21 18:40] LABS: Basophils Absolute Auto 0.03 K/uL (0.00-0.30); Basophils Percent Auto 0.3 % (0.0-3.0); Eosinophils Absolute Auto 0.32 K/uL (0.00-0.50); Eosinophils Percent Auto 3.7 % (0.0-7.0); Hematocrit 40.5 % (37.0-53.0); Hemoglobin* 12.5 gm/dL (13.5-17.5); Immature Granulocytes Abs Auto 0.01 K/uL (0.00-0.30); Immature Granulocytes Pct Auto 0.1 %; Lymphocytes Percent Auto 16.9 % (20-44); Mean Corpuscular HGB Conc 31 gm/dL (32-36); Mean Corpuscular Hemoglobin 27 pg (26-34); Mean Corpuscular Volume 89 fL (80-100); Monocytes Percent Auto 6.6 % (0.0-11.0); Neutrophils Percent Auto 72.4 % (42.0-72.0); Platelet Count* 360 K/uL (140-440); RDW Coefficient of Variation % 14.2 % (11.5-15.5); Red Blood Count 4.57 m/uL (4.30-5.90); White Blood Count* 8.62 K/uL (4.50-11.00)
[2022-11-21 18:42] LABS: Slide Review Reflex No
[2022-11-21 18:51] LABS: Chloride* 105 mmol/L (96-114)
[2022-11-21 18:52] LABS: Potassium* 4.6 mmol/L (3.6-5.1); Sodium* 140 mmol/L (135-149)
[2022-11-21 18:55] LABS: Anion Gap 5 mEq/L (7-15); Blood Urea Nitrogen* 10 mg/dL (7-30); Carbon Dioxide* 30 mmol/L (20-32); Creatinine* 0.6 mg/dL (0.5-1.5); Estimated Glomerular Filt Rate 104 ml/min
[2022-11-21 18:56] LABS: Calcium* 8.8 mg/dL (8.4-10.6); Glucose* 137 mg/dL (60-115)
[2022-11-21 18:58] LABS: C Reactive Protein* 2.8 mg/dL (0.5-1.0)
[2022-11-21 19:07] VITALS: BP 147/89; RESP 18; O2SAT 98
[2022-11-21] MEDS: predniSONE 20 MG TABLET 60 MG PO (19:58)
== END 2022-11-21 20:22 | disposition home or self-care (01) ==
PROVIDERS: Emergency Provider Family Medicine; PCP Physician Assistant Medical
DX: J44.1 Chronic obstructive pulmonary disease with (acute) exacerbation (principal); I48.91 Unspecified atrial fibrillation
CPT/HCPCS: 36415; 71046; 80048; 85025; 86140; 99284; J7512

== ENCOUNTER 2022-12-27 08:37 | Outpatient (CLI) | payer OTHER, SELFPAY | END 2022-12-27 08:38 | disposition home or self-care (01) | LOC: WOUND 08:37 | PROVIDERS: PCP Physician Assistant Medical; Visit Provider Family Medicine | DX: I89.0 Lymphedema, not elsewhere classified (principal); L97.822 Non-pressure chronic ulcer of other part of left lower leg with fat layer exposed; L97.228 Non-pressure chronic ulcer of left calf with other specified severity; E11.21 Type 2 diabetes mellitus with diabetic nephropathy; Z79.4 Long term (current) use of insulin; Z79.84 Long term (current) use of oral hypoglycemic drugs | CPT/HCPCS: 97597; 99213 ==

== ENCOUNTER 2023-01-03 15:26 | Outpatient (CLI) | payer OTHER, SELFPAY | END 2023-01-03 15:27 | disposition home or self-care (01) | LOC: WOUND 15:26 | PROVIDERS: PCP Physician Assistant Medical; Visit Provider Nurse Practitioner Family | DX: I89.0 Lymphedema, not elsewhere classified (principal); L97.822 Non-pressure chronic ulcer of other part of left lower leg with fat layer exposed; L97.222 Non-pressure chronic ulcer of left calf with fat layer exposed | CPT/HCPCS: 97597; 97602 ==

== ENCOUNTER 2023-01-10 14:52 | Outpatient (CLI) | payer OTHER, SELFPAY | END 2023-01-10 14:53 | disposition home or self-care (01) | LOC: WOUND 14:52 | PROVIDERS: PCP Physician Assistant Medical; Visit Provider Nurse Practitioner Family | DX: I89.0 Lymphedema, not elsewhere classified (principal); L97.822 Non-pressure chronic ulcer of other part of left lower leg with fat layer exposed | CPT/HCPCS: 99213 ==

== ENCOUNTER 2023-09-07 20:21 | Emergency (ER) | payer OTHER, SELFPAY ==
[2023-09-07 20:32] VITALS: BP 138/86; PULSE 100; RESP 24; TEMP 36.8; O2SAT 96; BMI 39.5
--- NOTE | 2023-09-07 20:36 | ED.GENADULT ---
HPI - General Adult General Chief complaint: Shortness of Breath/Dyspnea Stated complaint: Diff breathing COPD Time Seen by Provider: 09/07/23 20:25 History of Present Illness HPI narrative: CC: Shortness of Breath pt. was seen in clinic yesterday and was put on prednisone and abx for cellulitis. states breathing is not any better. denies fevers . 73-year-old man presenting to the emergency department concern of shortness of breath. Underlying diagnosis of COPD and diabetes. Was seen in clinic yesterday initiated on prednisone and after nearing the end of a course of doxycycline was switched to Bactrim. I can not see that there any x-rays available. Underlying history of paroxysmal atrial fibrillation and anticoagulated with apixaban. Or last number of days has been more short of breath. Looks like has history of sleep apnea and uses CPAP. Oxygen is also available. He has a Sleep number bed he says and since he does have lymphedema he has post elevate his legs. When he elevates his legs that he feels like water is running back into his lungs and yes to get up and go to the desk in the computer for little while. Is unaware whether not he has a diagnosis of heart failure. No fevers. No chest pain. Related Data Home Medications ?Medication ?Instructions ?Recorded ?Confirmed albuterol sulfate 90 mcg/actuation inhalation 03/09/22 07/08/22 aerosol inhaler amlodipine 10 mg tablet mg 03/09/22 07/08/22 apixaban 5 mg tablet (Eliquis) mg 03/09/22 07/08/22 atomoxetine 100 mg capsule mg PO 03/09/22 07/08/22 budesonide-formoterol HFA 160 inhalation 03/09/22 07/08/22 mcg-4.5 mcg/actuation aerosol inhaler (Symbicort) calcium carbonate 600 mg-vitamin tab PO 03/09/22 07/08/22 D3 10 mcg (400 unit) tablet carvedilol 3.125 mg tablet mg 03/09/22 07/08/22 clotrimazole-betamethasone 1 applic topical 03/09/22 07/08/22 %-0.05 % topical cream docusate sodium 100 mg capsule mg PO 03/09/22 07/08/22 furosemide 40 mg tablet mg 03/09/22 07/08/22 gabapentin 300 mg capsule mg 03/09/22 07/08/22 insulin aspart U-100 100 unit/mL subcut 03/09/22 07/08/22 (3 mL) subcutaneous pen (Novolog FlexPen U-100 Insulin aspart) insulin glargine 100 unit/mL (3 unit subcut 03/09/22 07/08/22 mL) subcutaneous pen (Lantus Solostar U-100 Insulin) ipratropium 0.5 mg-albuterol 3 mg ml inhalation 03/09/22 07/08/22 (2.5 mg base)/3 mL nebulization soln losartan 100 mg tablet mg 03/09/22 07/08/22 metformin 500 mg tablet mg 03/09/22 07/08/22 propylene glycol 0.6 % eye drops drp 03/09/22 07/08/22 (Systane Complete) rosuvastatin 10 mg tablet mg 03/09/22 07/08/22 tiotropium bromide 2.5 inhalation 03/09/22 07/08/22 mcg/actuation mist for inhalation (Spiriva Respimat) prednisone 10 mg tablet mg PO 09/07/23 sulfamethoxazole 800 1 tab PO BID 09/07/23 09/07/23 mg-trimethoprim 160 mg tablet Previous Rx's ?Medication ?Instructions ?Recorded doxycycline hyclate 100 mg capsule 100 mg PO Q12H #14 caps 09/15/22 prednisone 20 mg tablet 20 mg PO DIRECTED 9 days #18 11/21/22 tabs Allergies Allergy/AdvReac Type Severity Reaction Status Date / Time lisinopril Allergy Mild Cough Verified 09/07/23 20:34 Review of Systems Status of ROS: Reports: 6 or more systems reviewed and unremarkable except as noted in History and below [facility] Social History Smoking Status: Former smoker How often do you have a drink containing alcohol: never AUDIT-C Alcohol total score: 0 Non-prescribed substance use: denies use Exam Narrative: Exam Narrative: Pleasant. NAD. Mildly labored mildly tachypneic is breathing. Intradermal bruising on forearms extensively. Lower extremities are covered with Dirk wraps down to the ankle. Mild erythema in the exposed feet and above -- will examine further -- lungs without wheeze. Good air movement. Do not hear unusual breath sounds. Heart in mildly elevated rate with trace will systolic murmur. Const: Vital Signs, click to edit/add: Vital Signs - 24 hr 09/07/23 20:32 09/07/23 22:00 Temperature 98.2 F Pulse Rate [Right Pulse Oximeter] 100 96 Respiratory Rate 24 Blood Pressure [Ri ght Upper Arm] 138/86 Pulse Oximetry 96 96 Oxygen Delivery Me thod Room Air Room Air Documenting provider has reviewed patient's vital signs: yes Course Vital Signs Vital signs: Initial Vital Signs Temperature 98.2 F 09/07/23 20:32 Temperature Source Temporal Artery Scan 09/07/23 20:32 Pulse Rate 100 09/07/23 20:32 Respiratory Rate 24 09/07/23 20:32 Blood Pressure 138/86 09/07/23 20:32 Blood Pressure Mean 103 09/07/23 20:32 Blood Pressure Position Sitting 09/07/23 20:32 Pulse Oximetry 96 09/07/23 20:32 Oxygen Delivery Method Room Air 09/07/23 20:32 Vital Signs Temperature 98.2 F 09/07/23 20:32 Pulse Rate 100 09/07/23 20:32 Respiratory Rate 24 09/07/23 20:32 Blood Pressure 138/86 09/07/23 20:32 Pulse Oximetry 96 09/07/23 20:32 Oxygen Delivery Method Room Air 09/07/23 20:32 Temperature 98.2 F 09/07/23 20:32 Pulse Rate 96 09/07/23 22:00 Respiratory Rate 24 09/07/23 20:32 Blood Pressure 138/86 09/07/23 20:32 Pulse Oximetry 96 09/07/23 22:00 Oxygen Delivery Method Room Air 09/07/23 22:00 Medical Decision Making MDM Narrative Medical decision making narrative: I a would think this could be heart failure exacerbation. Does not appear that was screened for COVID or influenza or RSV - would consider doing that. Today will do a chest x-ray as well looking for potential pneumonia. Pulmonary embolus I suppose is in differential but he is already anticoagulated. Could be in an arrhythmia as well. Anemia? Does arrive with oxygenation of 96% on room air. Does have nebs available. Monitor during time in the emergency department. Further exam with leg edema/erythema -- improves mildly with elevation. Does not seem to be cellulitic with without significant induration and pain. There is an open wound noninflamed wound posterior right lower leg With elevated white count of 15.6 neutrophilic. hemoglobin at 10.5 CRP is elevated at 5.6. Chest x-ray reviewed by me with some mild cardiomegaly though this was a portable exam. Radiology over-read as below. TECHNIQUE: Chest 1 view. COMPARISON: 11/21/2022. FINDINGS: Cardiovascular and mediastinum: Borderline enlarged cardiac contours, possibly accentuated by portable technique. Lungs and pleural spaces: No consolidation. No pleural effusions or pneumothorax. Bones and soft tissues: No significant findings. IMPRESSION: No acute pulmonary process. I would still have concerns about involving cellulitis in that this might explain the elevated white count. Would continue antibiotics as prescribed. White count may also be elevated partly related to steroids. Follow-up with wound clinic See patient discharge plan for further discussion Medical Records Medical records reviewed: Yes I reviewed the patient's medical records Lab Data Lab results reviewed: Yes I reviewed the patient's lab results Labs: Lab Results 09/07/23 Range/Units 21:16 WBC 15.61 H (4.50-11.00) K/uL RBC 3.67 L (4.30-5.90) m/uL Hgb 10.5 L (13.5-17.5) gm/dL Hct 32.8 L (37.0-53.0) % MCV 89 (80-100) fL MCH 29 (26-34) pg MCHC 32 (32-36) gm/dL RDW Coeff of Paulino 14.6 (11.5-15.5) % Plt Count 372 (140-440) K/uL Neut % (Auto) 83.9 H (42.0-72.0) % Lymph % (Auto) 9.2 L (20-44) % [place] % (Auto) 6.5 (0.0-11.0) % Eos % (Auto) 0.1 (0.0-7.0) % Baso % (Auto) 0.1 (0.0-3.0) % Neut # (Auto) 13.10 H (1.7-7.0) K/uL Lymph # (Auto) 1.40 (0.90-2.90) K/uL [place] # (Auto) 1.00 H (0.00-0.90) K/UL Eos # (Auto) 0.00 (0.00-0.50) K/uL Baso # (Auto) 0.00 (0.00-0.30) K/uL Abs Immat Gran (auto) 0.00 (0.00-0.30) K/uL Imm/Tot Granulo (auto) 0.2 % Sodium 136 (135-149) mmol/L Potassium 4.6 (3.6-5.1) mmol/L Chloride 101 (96-114) mmol/L Carbon Dioxide 26 (20-32) mmol/L Anion Gap 9 (7-15) mEq/L BUN 24 (7-30) mg/dL Creatinine 1.0 (0.5-1.5) mg/dL Estimated Creat Clear 65.55 Estimated GFR 80 ml/min Glucose 233 H (60-115) mg/dL Calcium 9.2 (8.4-10.6) mg/dL Magnesium 2.3 (1.5-2.6) mg/dL Total Bilirubin 0.4 (0.1-1.5) mg/dL Direct Bilirubin 0.4 (0.0-0.5) mg/dL AST 36 H (12-35) U/L ALT 25 (4-50) U/L Alkaline Phosphatase 76 (40-150) U/L C-Reactive Protein 5.6 H (0.5-1.0) mg/dL NT-Pro-B Natriuret Pep 97 pg/mL Total Protein 7.5 (6.0-8.3) g/dL Albumin 4.5 (3.3-5.0) g/dL SARS-CoV-2 (PCR) Negative SARS-CoV-2 (Negative) Influenza Type A (PCR) Negative PCR FLU A (Negative) Influenza Type B (PCR) Negative PCR FLU B (Negative) RSV (PCR) Negative PCR RSV (Negative) ECG Data Attestation: I personally reviewed and interpreted this ECG as follows: (Normal sinus rhythm at a rate of 95) Discharge Plan Discharge Clinical Impression: Dyspnea, Peripheral edema Patient Disposition: Home w/ Parent or Adult Condition: Stable Additional Instructions: I agree that your belly is complicating things a little bit for you. Continue to do your best to get your legs up at rest and otherwise wearing good compression. I would use your DuoNeb (albuterol-ipratropium bromide) regularly 3-4 times daily over the next 3 days. I would also double your furosemide dosing over the next 3 days. Continue with the steroid dosing as prescribed. Though your oxygen level looks good, you might be more comfortable to supplement with your oxygen over the next day or two 1-2 L; definitely; not more than 2 L Please take this oxygen tubing with nasal cannula with you. You were little anemic here though I am not sure what your baseline is. Report these labs to your primary care provider please. Prescriptions: No Action doxycycline hyclate 100 mg capsule 100 mg PO Q12H Qty: 14 0RF prednisone 10 mg tablet PO sulfamethoxazole-trimethoprim 800-160 mg tablet 1 tab PO BID furosemide 40 mg tablet metformin 500 mg tablet ipratropium-albuterol 0.5 mg-3 mg(2.5 mg base)/3 mL solution for nebulization INHALATION carvedilol 3.125 mg tablet amlodipine 10 mg tablet clotrimazole-betamethasone 1-0.05 % cream TOPICAL docusate sodium 100 mg capsule PO gabapentin 300 mg capsule albuterol sulfate 90 mcg/actuation HFA aerosol inhaler INHALATION losartan 100 mg tablet insulin aspart U-100 [Novolog FlexPen U-100 Insulin] 100 unit/mL (3 mL) insulin pen SUBCUT rosuvastatin 10 mg tablet atomoxetine 100 mg capsule PO calcium carbonate-vitamin D3 600 mg-10 mcg (400 unit) tablet PO budesonide-formoterol [Symbicort] 160-4.5 mcg/actuation HFA aerosol inhaler INHALATION insulin glargine [Lantus Solostar U-100 Insulin] 100 unit/mL (3 mL) insulin pen SUBCUT Systane Complete 0.6 % drops Patient Comments: INSTILL ONE DROP INTO BOTH EYES NEEDED Spiriva Respimat 2.5 mcg/actuation mist INHALATION Eliquis 5 mg tablet prednisone 20 mg tablet 20 mg PO DIRECTED 9 Days Qty: 18 0RF Rx Instructions: 60 mg p.o. daily for 3 days (3 tablets daily on day 1-3), 40 mg daily for 3 days (2 tablets daily on days 4-6), 20 mg daily for 3 days (1 tablet daily on days 7-9). Follow Up/Referrals: Karen Ibarra PA-C [Primary Care Provider] - Stand Alone Forms: [facility] Info Instructions
--- NOTE | 2023-09-07 20:47 | CRLHL7_ITS ---
For Patients: As a result of the Century Cures Act, medical imaging exams and procedure reports are released immediately into your electronic medical record. You may view this report before your referring provider. If you have questions, please contact your health care provider. INDICATION: Dyspnea, orthopnea. TECHNIQUE: Chest 1 view. COMPARISON: 11/21/2022. FINDINGS: Cardiovascular and mediastinum: Borderline enlarged cardiac contours, possibly accentuated by portable technique. Lungs and pleural spaces: No consolidation. No pleural effusions or pneumothorax. Bones and soft tissues: No significant findings. IMPRESSION: No acute pulmonary process. Dictated by Mike Higgins MD @ 09/07/2023 9:17:43 PM (Electronically Signed)
[2023-09-07 21:23] LABS: Basophils Percent Auto 0.1 % (0.0-3.0); Eosinophils Percent Auto 0.1 % (0.0-7.0); Hematocrit 32.8 % (37.0-53.0); Hemoglobin* 10.5 gm/dL (13.5-17.5); Immature Granulocytes Pct Auto 0.2 %; Lymphocytes Percent Auto 9.2 % (20-44); Mean Corpuscular HGB Conc 32 gm/dL (32-36); Mean Corpuscular Hemoglobin 29 pg (26-34); Mean Corpuscular Volume 89 fL (80-100); Monocytes Percent Auto 6.5 % (0.0-11.0); Neutrophils Percent Auto 83.9 % (42.0-72.0); Platelet Count* 372 K/uL (140-440); RDW Coefficient of Variation % 14.6 % (11.5-15.5); Red Blood Count 3.67 m/uL (4.30-5.90); White Blood Count* 15.61 K/uL (4.50-11.00)
[2023-09-07 21:24] LABS: Slide Review Reflex No
[2023-09-07 21:36] LABS: Albumin* 4.5 g/dL (3.3-5.0); Chloride* 101 mmol/L (96-114); Sodium* 136 mmol/L (135-149)
[2023-09-07 21:37] LABS: Potassium* 4.6 mmol/L (3.6-5.1)
[2023-09-07 21:38] LABS: Est. Creatinine Clearance* 65.55; Estimated Glomerular Filt Rate 80 ml/min
[2023-09-07 21:39] LABS: Alanine Aminotransferase* 25 U/L (4-50); Alkaline Phosphatase* 76 U/L (40-150); Anion Gap 9 mEq/L (7-15); Aspartate Amino Transferase* 36 U/L (12-35); Bilirubin Direct* 0.4 mg/dL (0.0-0.5); Bilirubin Total* 0.4 mg/dL (0.1-1.5); Blood Urea Nitrogen* 24 mg/dL (7-30); Carbon Dioxide* 26 mmol/L (20-32); Glucose* 233 mg/dL (60-115); Total Protein* 7.5 g/dL (6.0-8.3)
[2023-09-07 21:40] LABS: Calcium* 9.2 mg/dL (8.4-10.6); Magnesium* 2.3 mg/dL (1.5-2.6)
--- OUTSIDE RECORDS SUMMARY | 2023-09-07 21:40 | XMS_ITS | Referral Summary ---
Author Organization [place] Address [address] [place] [address] Care Team Providers Care Technical Documentation Specialist Name Role Phone Tamela Ibarralidia Amador Primary Care Provider [phone] Allergies Active Allergy Reactions Criticality Noted Date Comments Lisinopril Cough 11/03/2017 Medications Medication Sig Dispensed Refills Start Date End Date Status TRIAMTERENE-HCTZ 25-37.5 MG OR CAPS 1 OR 2 CAPSULES DAILY 60 0 11/09/2007 Active VYTORIN 10-40 MG OR TABS 1 TABLET EVERY EVENING 30 0 11/09/2007 Active METFORMIN HCL 500 MG OR TABS ONE TABLET WITH BREAKFAST AND ONE TABLET WITH DINNER 3 MONTHS 0 11/09/2007 Active SPIRIVA HANDIHALER 18 MCG IN CAPS 1 CAPSULE DAILY 30 0 11/09/2007 Active DOCUSATE SODIUM PO Take 100 mg by mouth 2 times daily Active METFORMIN HCL PO Take 1,000 mg by mouth 2 times daily Active GLIPIZIDE PO Take 10 mg by mouth 2 times daily Active AMLODIPINE BESYLATE PO Take 10 mg by mouth daily Active ATOMOXETINE HCL PO Take 100 mg by mouth every morning Active FUROSEMIDE PO Take 20 mg by mouth every morning Active Apixaban (ELIQUIS PO) Take 5 mg by mouth 2 times daily Active CALCIUM-VITAMIN D PO Take 1 tablet by mouth 2 times daily Active Pioglitazone HCl (ACTOS PO) Take 30 mg by mouth every morning Active LOSARTAN POTASSIUM PO Take 100 mg by mouth every morning Active CETIRIZINE HCL PO Take 10 mg by mouth every morning Active GABAPENTIN PO Take 900 mg by mouth as needed Active SIMVASTATIN PO Take 40 mg by mouth every evening Active TRAZODONE HCL PO Take 100 mg by mouth every evening Active CYCLOBENZAPRINE HCL PO Take 10 mg by mouth every evening as needed for muscle spasms Active DOXYCYCLINE HYCLATE PO Take 100 mg by mouth 2 times daily Until gone Active insulin detemir (LEVEMIR) 100 UNIT/ML injection Inject 45 Units Subcutaneous 2 times daily Active TRIAMCINOLONE 0.1%/WHITE PETROLEUM, FV COMPOUNDED, CREAM 2 times daily Acti ve Acetaminophen (TYLENOL PO) Take 650 mg by mouth Ac tive budesonide-formoter ol (SYMBICORT) 160-4.5 MCG/ACT Inhaler Inhale 2 puffs into the lungs 2 times daily Active ipratropium - albuterol 0.5 mg/2.5 mg/3 mL (DUONEB) 0.5-2.5 (3) MG/3ML neb solution Take 1 vial by nebulization every 6 hours as needed for shortness of breath / dyspnea or wheezing Active Active Problems Problem Noted Date Diagnosed Date Obesity 11/09/2007 LUCIEN (obstructive sleep apnea) 11/09/2007 Overview: Sleep study 09/20- AHI 12.8, REM AHI 69.5, Supine AHI 14.2, RDI 22.4, Last 88%, PLMI 11, PLMAI 1.1. CPAP 11cm effective REM-lateral. Diabetes mellitus, type 2 Overview: Dx 2003 Problem list name updated by automated process. Provider to review Hypertension Overview: Dx 2003 COPD (chronic obstructive pulmonary disease) Overview: Quit smoking 2002. [id number] years. PFTS 03/24 - FEV1- 1.08 (30%), ratio 0.53 Social History Tobacco Use Types Packs/Day Years Used Date Smoking Tobacco: Former Cigarettes 3 36 1 02/14/1966 - 12/15/2002 Smokeless Tobacco: Never Alcohol Use Standard Drinks/Week Comments No 0 (1 standard drink = 0.6 oz pur e alcohol) Sex and Gender Information Value Date Recorded Sex Assigned at Not on file Gender Identity Not on file Sexual Orientation Not on file Last Filed Vital Signs Vital Sign Reading Time Taken Comments Blood Pressure 128/72 11/04/2017 1:52 PM CDT Pulse 80 11/04/2017 1:52 PM CDT Temperature 36.2 ??C (97.2 ??F) 11/04/2017 11:50 AM C DT Respiratory Rate 18 11/04/2017 1:52 PM CDT Oxygen Saturation 96% 11/04/2017 1:52 PM CDT Inhaled Oxygen Concentration - - Weight 114 kg (251 lb 6.4 oz) 11/04/2017 8:57 AM CDT Height 172.7 cm (5' 8) 11/04/2017 8:57 AM CDT Body Mass Index 38.23 11/04/2017 8:57 AM CDT Plan of Treatment Not on file Care Teams Technical Documentation Specialist Relationship Specialty Start Date End Date Karen Ibarra PCP - General Physician Sql Application Developer 10/28/17
--- OUTSIDE RECORDS SUMMARY | 2023-09-07 21:40 | XMS_ITS | Continuity of Care Document ---
Author Organization [facility] Address [address] [address] [place] [address] Phone Care Team Providers Care Psychologist Industrial Organizational Name Role Phone Rupesh Laws MD Unavailable Unavaila ble Medications Medication Instructions Dosage Effective Dates (start - stop) Status Comments MiralaxBisacodylMagCit Colon Prep Use as directed - Active Procedures Procedure Date Colonoscopy Flex; W/remov Les- 19 Advance Directives Directive Yes / No Effective Date File Name No Information Encounters Encounter Description Practice Location Reason(s) For Visit Diagnoses Date Provider Providers Copied on Encounter [facility], [address] [address], [place], [place], [id number], [place] tel:[phone] [facility] No Information Sep-0 0 Veto Goddard. [address] [place] [address], [id number], [place]. tel:[phone] [facility], [address] [address], [place], [place], [id number], [place] tel:[phone] [facility] No Information Sep-0 9 Jaoquin Rolle. [address] [place] [address], [id number], [place]. tel:[phone] Referring Provider: Sariah Nuñez MD, [address], [address] . tel:[phone] [facility], [address] [address], [place], [id number], [place] tel:[phone] [facility] No Information 7 Link MD Mann. [address] [facility], [facility] [address], [place], [place], [id number], [place]. tel:[phone] Family History Family Member Type Diagnosis Age At Onset No Information Payers Payer name Insurance type Covered democrat ID Authoriza tion(s) No Information Social History Type Description Quantity Date Captured Comments Sex Male Smoking Status No Information Chief Complaint And Reason For Visit No Information Reason For Referral Reason For Referral No Information History Of Present Illness Encounter Date Complaint History Of Prese nt Illness No Information Functional Status Date Functional Assessmen t No Information Instructions Date Instruction Additional Infor mation No Information Assessments Type Assessment Date No Information Patient Care Teams Name Effective Dates (start - stop) Status Members No Information
--- OUTSIDE RECORDS SUMMARY | 2023-09-07 21:40 | XMS_ITS | Clinical Summary ---
Author Organization [facility] Address [place], [place] [address] Care Team Providers Care Greige Goods Examiner Name Role Phone Karen Ibarra Primary Care Provider Eve Yap RN Unavailable Monalisa Meza RN Unavailable [phone] Unavailable Jessica Espinoza RN Unavailable [phone] Lester Morris MD Unavailable Siddhartha Ho DO Unavailable Karol Pinto PharmD Unavailable Allergies Active Allergy Reactions Criticality Noted Date Comments Lisinopril Cough 04/18/2009 Medications Medication Sig Dispensed Refills Start Date End Date Status flash glucose scanning reader (FreeStyle Brendan 2 [place]) miscIndications:Ty pe 2 diabetes mellitus with diabetic neuropathy, with long-term current use of insulin (HC) As directed. 1 Each 1 Active oxygen-air delivery systems (HOME OXYGEN)Indications :Chronic obstructive pulmonary disease, unspecified COPD type (HC) Oxygen for home use. Liters per minute: 2 L per nasal cannula with activity and bled into CPAP with sleep. Frequency of use: with activity and sleep. Length of need: 99 Months. 1 Device 1 Active lidocaine 5 % topical patchIndications:T ype 2 diabetes mellitus with diabetic neuropathy, with long-term current use of insulin (HC) Apply to intact skin to cover most painful area for max 12hr per 24hr period. 30 Patch 5 2 Active nebulizers (Sidestream) misc Use with nebulizer as directed. 1 Each 2 Active carboxymethylcellu lose (Refresh Celluvisc) 1 % eye gel in dropperette Place 1 Drop into both eyes 4 times daily (or more). 30 Each 3 2 Active cycloSPORINE (Restasis) 0.05 % ophthalmic emulsion Place 1 Drop into both eyes twice daily 12 hours apart. 180 Each 2 Active clotrimazole-betam ethasone cream (LOTRISONE) 1-0.05 % creamIndications:B alanitis Apply topically to affected area(s) 2 times daily. 45 g 11 3 Active Systane Complete 0.6 % ophthalmic solution INSTILL ONE DROP INTO BOTH EYES NEEDED 3 Active triamcinolone (ARISTOCORT; KENALOG) 0.1 % creamIndications:S kin irritation Apply topically to affected area(s) three times daily. 45 g 3 Active Incontinence Pad, Liner, Disp padsIndications:Ur inary incontinence, unspecified type Use the pads 3 times a day as needed. 96 Each 11 3 Active Insulin [place], Disposable, (BD Audelia 2nd Gen Pen Needle) 32 gauge x 5/32Indications:C ontrolled type 2 diabetes mellitus without complication, unspecified whether mcc insulin use (HC) Use four times daily 400 Each 3 3 Active albuterol-ipratrop ium (DUONEB) (2.5-0.5 mg) in 3 mL NEBULIZATION solutionIndication s:Chronic bronchitis, unspecified chronic bronchitis type (HC) Inhale 3 mL via a nebulizer every 6 hours if needed for shortness of breath. 720 mL 11 3 Active NebulizerIndicatio ns:Chronic bronchitis, unspecified chronic bronchitis type (HC) Nebulizer, disposable neb kit x 4, reuseable neb kit x 1, mask x 1, filters x 1. Frequency of use: daily; Medication: albuterol Length of need: 99 months 1 Each 3 Active Blood-Glucose Meter (OneTouch Verio Flex meter)Indications: Type 2 diabetes mellitus with diabetic neuropathy, with long-term current use of insulin (HC) Test 1 times per day. 1 Each 3 Active blood sugar diagnostic (OneTouch Verio test strips) stripIndications:T ype 2 diabetes mellitus with diabetic neuropathy, with long-term current use of insulin (HC) Test 1 time/day 100 Each 3 3 Active lancets (Alafair BiosciencesTouch Delica Plus Lancet) 33 gauge miscIndications:Ty pe 2 diabetes mellitus with diabetic neuropathy, with long-term current use of insulin (HC) Test 1 time/day 100 Each 3 3 Active fluticasone (50 mcg per actuation) nasal solution (FLONASE)Indicatio ns:Allergic rhinitis due to pollen, unspecified seasonality Inhale 2 Sprays to both nostrils once daily. 16 g 4 Active propylene glycoL, PF, (Systane Complete PF) 0.6 % drop Instill one drop into both eyes for as needed purposes 30 mL 12 4 Active tiotropium bromide (Spiriva Respimat) 2.5 mcg/actuation mist for inhalationIndicati ons:Chronic obstructive pulmonary disease, unspecified COPD type (HC) Inhale 2 puffs by mouth once daily. 4 g 4 Active FreeStyle Brendan 3 Sensor for continuous blood glucose monitor (CGM)Indications:T ype 2 diabetes mellitus with diabetic neuropathy, with long-term current use of insulin (HC) To be used to read blood sugars, follow credit negotiator directions. 6 Each 3 4 Active budesonide-formote roL (Symbicort) 160-4.5 mcg/actuation (160-4.5 mcg each actuation) inhalerIndications :Chronic obstructive pulmonary disease, unspecified COPD type (HC) Inhale 2 puffs by mouth 2 times daily. 10.2 g 4 Active carvediloL (Coreg) 6.25 mg tabletIndications: Paroxysmal atrial fibrillation (HC),Tachycardia Take 1 Tablet (6.25 mg) by mouth two times daily with meals. 180 Tablet 3 4 Active albuterol HFA (ProAir HFA) 90 mcg/actuation inhalerIndications :Bronchitis Inhale 2 Puffs by mouth 4 times daily if needed for Shortness of Breath 1st choice. 17 g 10 4 Active CPAPIndications:OS A (obstructive sleep apnea) Resmed CPAP machine for home use at pressure 11 cmw with epr of 3, CPAP mask- mask of choice, fit to comfort one per 3 months 1 Each 4 Active Vit B Comp & C-Vit E-FA-Roseanne-Zn (One-A-Day Women's 50 Plus) 0.4 mg tab Take 1 tablet by mouth once daily. 335 Tablet 4 Active cyclobenzaprine (FLEXERIL) 10 mg tabletIndications: Lumbar paraspinal muscle spasm Take 1 Tablet (10 mg) by mouth at bedtime if needed for Muscle Spasm. 90 Tablet 1 4 Active acetaminophen SR (8 Hour Pain Reliever) 650 mg Extended-Release tabletIndications: Chronic bilateral low back pain without sciatica Take 1 Tablet (650 mg) by mouth every 8 hours. 270 Tablet 4 4 Active cyclobenzaprine (FLEXERIL) 10 mg tabletIndications: Chronic bilateral low back pain without sciatica Take 1 Tablet (10 mg) by mouth at bedtime. 90 Tablet 3 4 Active oxygen-air delivery systems (HOME OXYGEN)Indications :Centrilobular emphysema (HC) Oxygen for home use. Liters per minute: 2 pulse w/ activity, 2 continuous w/activity and bled into CPAP w/ sleep per nasal cannula. Frequency of use: Continuous with portability.;. Length of need: 99 Months. 1 Each 4 Active insulin aspart, U-100, (NOVOLOG FLEXPEN) 100 unit/mL (3 mL) penIndications:Typ e 2 diabetes mellitus with diabetic neuropathy, with long-term current use of insulin (HC) INJECT 30 - 35 UNITS SUBCUTANEOUSLY THREE TIMES DAILY BEFORE MEALS. TOTAL DAILY DOSE OF 100 UNITS. 60 mL 4 Active cycloSPORINE (Restasis) 0.05 % ophthalmic emulsion Instill 1 drop into both eyes twice a day 180 Each 3 4 Active docusate (COLACE) 100 mg capsuleIndications :Chronic constipation Take 1 Capsule (100 mg) by mouth 2 times daily if needed for Constipation. 180 Capsule 3 08/30/202 4 Active apixaban (Eliquis) 5 mg tabletIndications: Paroxysmal atrial fibrillation (HC),Atrial flutter, unspecified type (HC) Take 1 Tablet (5 mg) by mouth two times daily. 180 Tablet 4 Active furosemide (LASIX) 40 mg tabletIndications: Bilateral lower extremity edema Take 1 Tablet (40 mg) by mouth two times daily. 90 Tablet 4 Active losartan (COZAAR) 100 mg tabletIndications: Essential hypertension Take 1 Tablet (100 mg) by mouth once daily. 90 Tablet 4 Active metFORMIN (GLUCOPHAGE) 500 mg tabletIndications: DM type 2, controlled, with complication (HC) Take 2 Tablets (1,000 mg) by mouth two times daily with meals. 360 Tablet 4 Active rosuvastatin (CRESTOR) 10 mg tabletIndications: Mixed hyperlipidemia Take 1 Tablet (10 mg) by mouth at bedtime. 90 Tablet 4 Active insulin glargine, U-100, (Lantus Solostar U-100 Insulin) 100 unit/mL (3 mL) penIndications:Typ e 2 diabetes mellitus with diabetic neuropathy, unspecified whether mcc insulin use (HC) Inject 57 units subcutaneous before bedtime. 60 mL 4 Active amLODIPine (NORVASC) 10 mg tabletIndications: Essential hypertension Take 1 Tablet (10 mg) by mouth once daily. 90 Tablet 4 Active predniSONE (DELTASONE) 10 mg tabletIndications: COPD exacerbation (HC) Take 3 Tablets (30 mg) by mouth once daily with a meal for 2 days, THEN 2 Tablets (20 mg) once daily with a meal for 2 days, THEN 1 Tablet (10 mg) once daily with a meal for 2 days. 12 Tablet 4 09/11/19 24 Active trimethoprim-sulfa methoxazole, 160-800 mg, (BACTRIM DS, SEPTRA DS) tabIndications:Acu te UTI Take 1 Tablet by mouth two times daily. 20 Tablet 4 Active amLODIPine (NORVASC) 10 mg tabletIndications: Essential hypertension Take 1 Tablet (10 mg) by mouth once daily. 90 Tablet 3 09/06/19 24 Discontinue d(Reorder (E-cancel not sent)) apixaban (Eliquis) 5 mg tabletIndications: Paroxysmal atrial fibrillation (HC),Atrial flutter, unspecified type (HC) Take 1 Tablet (5 mg) by mouth two times daily. 180 Tablet 3 3 09/02/19 24 Discontinue d(Reorder (E-cancel not sent)) furosemide (LASIX) 40 mg tabletIndications: Bilateral lower extremity edema Take 1 Tablet (40 mg) by mouth every morning. 90 Tablet 3 3 09/02/19 24 Discontinue d(Reorder (E-cancel not sent)) gabapentin (NEURONTIN) 300 mg capsuleIndications :Lumbar paraspinal muscle spasm,Chronic bilateral low back pain without sciatica Take 3 Capsules (900 mg) by mouth every morning AND 4 Capsules (1,200 mg) once daily. 630 Capsule 3 3 09/06/19 24 Discontinue d(*Med complete/Re gimen complete/[place] of care change) losartan (COZAAR) 100 mg tabletIndications: Essential hypertension Take 1 Tablet (100 mg) by mouth once daily. 90 Tablet 3 3 09/02/19 24 Discontinue d(Reorder (E-cancel not sent)) rosuvastatin (CRESTOR) 10 mg tabletIndications: Mixed hyperlipidemia Take 1 tablet (10 mg) by mouth at bedtime. 90 Tablet 3 3 09/02/19 24 Discontinue d(Reorder (E-cancel not sent)) continuous glucose monitor SENSOR KIT (FreeStyle Brendan 2 Sensor)Indications :Type 2 diabetes mellitus with diabetic neuropathy, with long-term current use of insulin (HC) As directed. Change every 14 days 6 Each 3 4 06/27/19 24 Discontinue d(Duplicate therapy (E-cancel not sent)) pramipexole (MIRAPEX) 0.25 mg tabletIndications: Foot cramps Take one-half to 2 Tablets (0.125-0.5 mg) by mouth at bedtime. 180 Tablet 4 08/09/19 24 Discontinue d(Reorder (E-cancel not sent)) metFORMIN (GLUCOPHAGE) 500 mg tabletIndications: DM type 2, controlled, with complication (HC) Take 2 tablets (1,000 mg) by mouth two times daily with meals. 360 Tablet 1 4 09/02/19 24 Discontinue d(Reorder (E-cancel not sent)) insulin glargine, U-100, (Lantus Solostar U-100 Insulin) 100 unit/mL (3 mL) penIndications:Typ e 2 diabetes mellitus with diabetic neuropathy, unspecified whether predatory animal exterminator insulin use (HC) Inject 60 units subcutaneous before bedtime. 90 mL 4 09/05/19 24 Discontinue d(Reorder (E-cancel not sent)) atomoxetine (Strattera) 40 mg capsuleIndications :Attention deficit disorder, unspecified hyperactivity presence Take 2 capsules daily x 2 weeks, then 1 capsule daily x 2 weeks. 42 Capsule 4 09/06/19 24 Discontinue d(*Med complete/Re gimen complete/[place] of care change) pramipexole (MIRAPEX) 0.25 mg tabletIndications: Foot cramps Take one-half to 2 Tablets (0.125-0.5 mg) by mouth at bedtime. 60 Tablet 4 08/25/19 24 Discontinue d(*Med complete/Re gimen complete/[place] of care change) predniSONE (DELTASONE) 10 mg tabletIndications: COPD exacerbation (HC) Take 4 Tablets (40 mg) by mouth once daily with a meal for 3 days, THEN 3 Tablets (30 mg) once daily with a meal for 3 days, THEN 2 Tablets (20 mg) once daily with a meal for 3 days, THEN 1 Tablet (10 mg) once daily with a meal for 3 days. 30 Tablet 4 08/31/19 24 doxycycline monohydrate 100 mg capsuleIndications :COPD exacerbation (HC),Cellulitis of skin Take 1 Capsule (100 mg) by mouth two times daily for 10 days. 20 Capsule 4 09/03/19 24 doxycycline monohydrate 100 mg capsuleIndications :Cellulitis of skin Take 1 Capsule (100 mg) by mouth two times daily for 10 days. 20 Capsule 4 09/06/19 24 Discontinue d(*Medicati on adjustment) trimethoprim-sulfa methoxazole, 160-800 mg, (BACTRIM DS, SEPTRA DS) tabIndications:Acu te UTI Take 1 Tablet by mouth two times daily for 10 days. 20 Tablet 4 09/06/19 24 Discontinue d(Reorder (E-cancel not sent)) predniSONE (DELTASONE) 10 mg tabletIndications: COPD exacerbation (HC) Take 3 Tablets (30 mg) by mouth once daily with a meal for 2 days, THEN 2 Tablets (20 mg) once daily with a meal for 2 days, THEN 1 Tablet (10 mg) once daily with a meal for 2 days. 12 Tablet 4 09/06/19 24 Discontinue d(Reorder (E-cancel not sent)) Active Problems Problem Noted Date Diagnosed Date Ulcer of lower extremity, un specified laterality, unspecified ulcer stage 02/16/2023 Chronic venous hypertension (idiopathic) with ulcer and inflammation of bilateral lower extremity 02/16/2023 Unspecified inflammatory spondylopathy, cervical region 01/22/2020 Chronic insomnia 12/25/2019 LUCEIN 10/05/2006 AHI/RDI:13 (70 in REM sleep) 10/24 ASHD (arteriosclerotic heart disease) 09/20/2017 Paroxysmal atrial fibrillation 09/20/2017 Active advance directive 07/04/2017 Overview: See scan from 02/03/17. 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 05/20/2015 Blepharitis of both eyes 05/20/2015 Lumbar facet arthropathy 04/23/2015 Type 2 diabetes mellitus with diabetic neuropath y 08/07/2014 Midline low back pain without sciatica 5 Pain medication agreement 04/30/2014 COPD, group B, by GOLD 2017 classification 03/14 Adjustment disorder with mixed anxiety and depre ssed mood 10/03/2013 Atrial flutter 09/02/2013 Overview: S/p cavotricuspid isthmus flutter ablation by Dr Flanagan 03/14/2014 ADD (attention deficit disorder) 07/28/2010 Restless legs syndrome (RLS) 10/08/2009 Morbid obesity 09/27/2007 Hypertension 09/09/2006 Hyperlipidemia 03/17/2006 SEALS (nonalcoholic steatohepatitis) 03/17/2006 Resolved Problems Problem Noted Date Diagnosed Date Resolved Date Dyspnea 02/10/2017 09/09/2021 LUCIEN 10/05/2006 AHI-13 (increased in REM-70) 07/05/2016 02/10/2017 DM2 (diabetes mellitus, type 2) 01/31/2014 12/17/2015 LUCIEN (obstructive sleep apnea) 06/30/2011 09/09/2021 ADD (attention deficit disorder) 08/12/2010 08/12/2010 Unspecified sleep apnea 01/06/200709/2012 Lumbago 06/16/2006 09/09/2021 DECONDITIONING SYNDROME 06/16/200601/15 Chronic airway obstruction, not elsewhere classified 03/17/2006 02/10/2017 Overview: Severe emphysema Depressive disorder, not elsewhere classified 03/17/19 07 06/30/2011 Type II or unspecified type diabetes mellitus without mention of complication, not stated as uncontrolled 11/20/2003 08/07/2014 Encounters Date Type Department Care Team Description 09/06/2023 10:50 AM CDT Office Visit [facility] [address] [place] [address] Karen Ibarra PA Breathing Problem; Urinary Problem (blood in urine); Leg Swelling 09/06/2023 Travel 09/05/2023 3:30 PM CDT Telemedicine [facility] [address] [place] [address] Lester Morris MD Telehealth 09/05/[address] [facility] [address] [place] [address] Lester Morris MD Prior Authorization (FreeStyle Brendan 3 Sensor for continuous blood glucose monitor (CGM)) 09/02/2023 Travel 08/25/[address] [facility] [address] [place] [address] Pravin Coley, [facility] <No scans attached> 08/24/2023 11:50 AM CDT Office Visit [facility] [address] [facility] [place] [address] Karen Ibarra PA Breathing Problem (Was seen by Sylvia on 08/18 for this, was put on prednisone, feeling better but still SOB. ); Edema (Leg swelling - has small blister on L leg) 08/24/2023 Travel 08/22/[address] [facility] [address] [place] [address] Karol Pinto, PharmD Pharmacist Medication Management (Brendan CGM issues) 08/19/2023 1:40 PM CDT Telemedicine [facility] [address] [place] [address] Sylvia Raya PA Breathing Problem 08/19/2023 Travel 08/11/2023 Orders Only [facility] Scanner 1 scan: (1-Ord) INCOMING RECORDS-DIABETIC EYE, [facility], 08/11/2023 08/09/2023 Refill [facility] [address] [place] [address] Karen Ibarra PA Refill Request (Pramipexole) 08/03/2023 11:30 AM CDT Office Visit [facility] [address] [place] [address] Karen Ibarra PA Medication Management (Gabapentin & Strattera, wants to discuss changing these, read that these cause memory loss) 08/03/2023 Telephone [facility] [address] [place] [address] Karen Ibarra PA Questions (atomoxetine (Strattera) 40 mg capsule/) 08/03/2023 Travel 07/27/2023 Refill [facility] [address] [facility] [address] [place] [address] Lester Morris MD Refill Request (Insulin Aspart (U-100)) 07/14/2023 3:45 PM CDT Office Visit [facility] [address] [place] [address] Siddhartha Ho, DO Follow Up (COPD) 07/14/2023 Travel 07/13/2023 2:15 PM CDT Phone Office Visit [facility] [address] [place] [address] Pravin Coley MBChB 07/13/2023 Travel 07/06/[address] [facility] [address] [place] [address] [place] [address] Pravin Coley MBChB Questions (wants call ) 07/05/2023 Orders Only [facility] Scanner 1 scan: (1-Ord) INCOMING RECORDS-DIABETIC EYE, [facility], 07/05/2023 07/04/2023 1:00 PM CDT Phone Office Visit [facility] [address] [facility] [place] [address] Pravin Coley MBChB 07/04/2023 Travel 06/28/2023 Travel 06/27/2023 1:40 PM CDT Office Visit [facility] [address] [place] [address] Karen Ibarra PA Finger Injury (R middle finger - cut while cutting onions) 06/27/2023 Travel 06/18/[address] [facility] [address] [place] [address] Pravin Coley [facility] Refill Request (Cyclobenzaprine) from Last 3 Months Immunizations Name Administration Dates Next Due COVID-19 Vaccine Spikevax (M oderna 50mcg/0.5mL) 12YO+ 3965-2502 Formula PF 05/16/2023 COVID-19 vaccine (Moderna 100mcg/0.5mL) PF, MDV 06/17/2021,01/12/2021,05/01/2020,03/31 COVID-19 vaccine (Moderna 50 mcg/0.5mL) 12YO+ BIVALENT PF, MDV 12/19/2021 Influenza, High-dose Quadriv alent Inactivated 11/08/2022,12/25/2021 RSV, Bivalent Vaccine Recons tituted (Abrysvo 120MCG/0.5mL) 12/18/2022 Family History Medical History Relation Name Comments Unknown Father Unknown Mother postop Relation Name Status Comments Brother 1 Alive Brother 2 Alive Brother 3 Father Mother Sister 1 Alive Sister 2 Alive Social History Tobacco Use Types Packs/Day Years Used Date Smoking Tobacco: Former Cigarettes 3 36.8 1 967 - 12/15/2002 Smokeless Tobacco: Never Tobacco Cessation:Counseling Given: Yes Comments:3-5 ppd once Alcohol Use Standard Drinks/Week Comments No 0 (1 standard drink = 0.6 oz pur e alcohol) haven't had any since 1998 PHQ-2 Answer Date Recorded PHQ-2 TOTAL SCORE 0 09/08/2022 Social Connections Answer Date Recorded Frequency of Communication with Friends and Fami ly 0 08/03/2023 Financial Resource Strain Answer Date R ecorded Difficulty of Paying Living Expenses 3 08/03/2023 Difficulty of Paying Living Expenses Not on file 08/03/2023 Food Insecurity Answer Date Recorded Worried About Running Out of Food in the Last Ye ar 1 08/03/2023 Transportation Needs Answer Date Record ed Lack of Transportation (Medical) 1 08/03/2023 Housing Stability Answer Date Recorded Unable to Pay for Housing in the Last Year 1 08/03/2023 Sex and Gender Information Value Date Recorded Sex Assigned at Male 09/26/2019 6:55 PM CDT Gender Identity Male 09/26/2019 6:55 PM CDT Sexual Orientation Straight 09/26/2019 6: 55 PM CDT Obstetrics History Last Filed Vital Signs Vital Sign Reading Time Taken Comments Blood Pressure 117/72 09/06/2023 10:52 AM CDT Pulse 84 09/06/2023 10:52 AM CDT Temperature 36.6 ??C (97.9 ??F) 09/06/2023 1 1:04 AM CDT Respiratory Rate 20 07/14/2023 3:54 PM CDT Oxygen Saturation 96% 09/06/2023 10: 52 AM CDT Inhaled Oxygen Concentration - - Weight 118.5 kg (261 lb 3.2 oz) 024 10:52 AM CDT Height 172 cm (5' 7.7) 07/14/2023 3:54 PM CDT Body Mass Index 40.07 07/14/2023 3:54 PM CDT Plan of Treatment Upcoming Encounters Date Type Department Care Team (Late st Contact Info) Description 09/09/2023 2:35 PM CDT Office Visit [facility] [address] [place] [address] Bri Melton DO [address] [place] [address] 09/14/2023 1:20 PM CDT Office Visit [facility] [address] [place] [address] Karen Ibarra PA [address] [place] [address] 01/13/2024 3:00 PM BULK DELIVERY DRIVER Telemedicine [facility] [address] [place] [address] Pravin Coley, [facility] [address] [place] [address] Health Maintenance Due Date Last Done Comments Pneumococcal series for age 65+ (1 of 2 - PCV) 01/03/1958 Tdap 01/03/1963 Tetanus booster 1972 Zoster (shingles) series for age 50+ (1 of 2) 01/03/2002 Depression screening for age 12+ 09/09/2023 09/08/2022, 09/09/2021, 04/30/2021, Additional history exists Medicare Wellness for age 65+ 09/09/2023, 09/09/2021, 01/30/2021, Additional history exists Influenza for age 65+ 10/16/2023 11/08/2022, 022 Fecal testing non-DNA (FIT,FOBT,iFOBT) for age 45-75 05/16/2024 05/17/2023, 10/29/2021, 08/19/2018, Additional history exists BMI (ht and wt on same day) for age 18+ 07/13/2024 07/14/2023, 06/01/2023, 09/08/2022, Additional history exists Lipids for age 45-75 05/15/2028 05/16/2023, 05/25/2022, 10/28/2021, Additional history exists Hepatitis C screening for ag e 18-79 Completed 04/08/2017 AAA screening age 65-74 Completed 10/15/2022 COVID-19 vaccine series Completed 05/16/19, 11/12/2022, 12/19/2021, Additional history exists Goals Goal Patient Goal Type Associated Problems Recent Progress Patient-Stated? Author BLOOD PRESSURE - MAINTAINS BP less than 140/90 Blood Pressure Hailee Correa MD Procedures Procedure Name Priority Date/Time Associated Diagnosis Comments URINALYSIS MICROSCOPIC Routine 09/06/2023 11:02 AM CDT Hematuria, unspecified type UA W/ SEDIMENT EXAM REFLEXED PER CRITERIA Routine 09/06/2023 11:02 AM CDT Hematuria, unspecified type SCAN-EYE EXAM 08/11/2023 12:00 AM CDT SCAN-EYE EXAM 07/05/2023 12:00 AM CDT OCCULT BLOOD IFOBT STOOL Routine 05/17/2023 12:24 PM CDT Screening for colon cancer LIPID PANEL W REFLEX MEASURED LDL Routine 05/16/2023 3:27 PM CDT Mixed hyperlipidemia US ABD AORTA SCREENING Routine 10/15/2022 9:54 AM CDT Encounter for abdominal aortic aneurysm (AAA) screening ANTI HCV Routine 04/08/2017 3:48 PM BULK DELIVERY DRIVER Encounter for hepatitis C screening test for low risk patient from Last 3 Months or Most Recently Relevant to Health Maintenance Results * (ABNORMAL) URINALYSIS MICROSCOPIC (09/06/2023 11:02 AM CDT) RBC >100(A) 0-2, None Seen /HPF 09/06/2023 11:07 AM CDT [facility] WBC 11-25(A) 0-2, 3-5, None Seen /HPF 09/06/2023 11:07 AM CDT [facility] BACTERIA Few None Seen, Rare, Few Bacteria/H PF 09/06/2023 11:07 AM CDT [facility] EPITHELIAL CELLS Few None Seen, Few Epi/HPF 09/06/2023 11:07 AM CDT [facility] Urine URINE SPECIMEN / Unknown Non-Blood / Unknown 09/06/2023 11:02 AM CDT 09/06/2023 11:02 AM CDT Karen ESQUIVEL URINE [facility] [address] [place] [address], * (ABNORMAL) UA W/ SEDIMENT EXAM REFLEXED PER CRITERIA (09/06/2023 11:02 AM CDT) COLOR Yellow Yellow Color 09/06/2023 11:07 AM CDT [facility] CLARITY Cloudy(A) Clear Clarity 09/06/2023 11:07 AM CDT [facility] SPECIFIC GRAVITY,URINE 1.020 1.010, 1.015, 1.020, 1.025 09/06/2023 11:07 AM CDT [facility] PH,URINE 7.0 6.0, 7.0, 8.0, 5.5, 6.5, 7.5, 8.5 09/06/2023 11:07 AM CDT [facility] UROBILINOGEN, QUALITATIVE Normal Normal EU/dl 09/06/2023 11:07 AM CDT [facility] PROTEIN, URINE 100(A) Negative mg/dL 09/06/2023 11:07 AM CDT [facility] GLUCOSE, URINE Negative Negative mg/dL 09/06/2023 11:07 AM CDT [facility] KETONES,URINE Negative Negative mg/dL 09/06/2023 11:07 AM CDT [facility] BILIRUBIN,URI NE Negative Negative 09/06/2023 11:07 AM CDT [facility] OCCULT BLOOD,URINE Large(A) Negative 09/06/2023 11:07 AM CDT [facility] NITRITE Negative Negative 09/06/2023 11:07 AM CDT [facility] LEUKOCYTE ESTERASE Small(A) Negative 09/06/2023 11:07 AM CDT [facility] Urine URINE SPECIMEN / Unknown Non-Blood / Unknown 09/06/2023 11:02 AM CDT 09/06/2023 11:02 AM CDT Karen ESQUIVEL URINE Performing Organization Address City/State/[facility] Co de Phone Number [facility] [address] [place] [address], * SCAN-EYE EXAM (08/11/2023 12:00 AM CDT) Scanner OTHER * SCAN-EYE EXAM (07/05/2023 12:00 AM CDT) Scanner OTHER * OCCULT BLOOD IFOBT STOOL (05/17/2023 12:24 PM CDT) STOOL BLOOD ,IFOBT Negative Negative 05/27/2023 7:28 AM CDT [facility] Stool STOOL SPECIMEN / Unknown Non-Blood / Unknown 05/17/2023 12:24 PM CDT 05/24/2023 12:24 PM CDT Karen ESQUIVEL LABORATORY [facility] [address] [place] [address], [place] [phone] * (ABNORMAL) LIPID PANEL W REFLEX MEASURED LDL (05/16/2023 3:27 PM CDT) CHOLESTEROL,TOTAL 107 100 - 199 mg/dL 05/16/2023 9:24 PM CDT [facility] TR[facility]ORY Comment: Cholesterol, Total Reference Ranges Desirable <200 mg/dL Borderline 200-239 mg/dL High >=240 mg/dL TRIGLYCERIDES 92 <150 mg/dL 05/16/2023 9:24 PM CDT [facility] HDL CHOLESTEROL 40(L) >40 mg/dL 9:24 PM CDT [facility] NON-HDL CHOLESTEROL 67 <145 mg/dl 05/16/2023 9:24 PM CDT [facility] CHOL/HDL RATIO 2.68 <4.50 05/16/2023 9:24 PM CDT [facility] LDL CHOLESTEROL 49 <=130 mg/dL 05/16/2023 9:24 PM CDT [facility] VLDL CHOLESTEROL 18 <=30 mg/dL 05/16/2023 9:24 PM CDT [facility] PROVIDER ORDERED STATUS RANDOM 05/16/2023 9:24 PM CDT [facility] Blood BLOOD SPECIMEN / Unknown Venipuncture / Unknown 05/16/2023 3:27 PM CDT 05/16/2023 3:28 PM CDT Karen ESQUIVEL CHEMISTRY [facility] [address] [place] [address], [place] * US ABD AORTA SCREENING (10/15/2022 9:54 AM CDT) Anatomical Region Laterality Modality Abdomen, AORTA Ultrasound 10/15/2022 10:5 9 AM CDT Narrative 10/15/2022 10:59 AM CDT For Patients: ??As a result of the Cures Act, medical imaging exams and procedure reports are released immediately into your electronic medical record. ??You may view this report before your referring provider. ??If you have questions, please contact your health care provider. Examination: US abdominal aorta Indication: Abdominal aortic aneurysm screening. Technique: Reid scale and color Doppler images of the aorta and common iliac arteries are obtained. Comparison: None Findings: Proximal aorta: 2.6 x 2.2 cm Mid aorta: 2.0 x 1.8 cm Distal aorta: 2.0 x 2.0 cm Right common iliac artery: Not well visualized Left common iliac artery: Not well visualized Impression: No abdominal aortic aneurysm within the visualized vessels. Note is made that the common iliac arteries are not well evaluated due to habitus. Dictated by Mirza Romero MD @ Sep ??2022 10:59AM (Electronically Signed) ?? Procedure Note Mirza Romero MD - 10/15/2022 For Patients: As a result of the Cures Act, medical imagingexams and procedure reports are released immediately into your electronicmedical record. You may view this report before your referring provider.If you have questions, please contact your health care provider. Examination: US abdominal aorta Indication: Abdominal aortic aneurysm screening. Technique: Reid scale and color Doppler images of the aorta and common iliac arteriesare obtained. Comparison: None Findings: Proximal aorta: 2.6 x 2.2 cm Mid aorta: 2.0 x 1.8 cm Distal aorta: 2.0 x 2.0 cm Right common iliac artery: Not well visualized Left common iliac artery: Not well visualized Impression: No abdominal aortic aneurysm within the visualized vessels. Note is madethat the common iliac arteries are not well evaluated due to habitus. Dictated by Mirza Romero MD @ Sep 2022 10:59AM (Electronically Signed) Boo Pipe Koo MD [place] * ANTI HCV (04/08/2017 3:48 PM BULK DELIVERY DRIVER) HEPATITIS C ANTIBODY Non-Reacti ve Non-Reacti ve 04/09/2017 4:26 PM BULK DELIVERY DRIVER [facility] Blood BLOOD SPECIMEN / Unknown Butterfly / Unknown 04/08/2017 3:48 PM BULK DELIVERY DRIVER 04/08/2017 3:48 PM BULK DELIVERY DRIVER Narrative [facility] - 04/09/2017 4:26 PM BULK DELIVERY DRIVER Antibodies to HCV not detected; does not exclude the possibility of exposure to HCV. Karen ESQUIVEL SEND OUTS [facility] [address] [place] [address], from Last 3 Months or Most Recently Relevant to Health Maintenance Advance Directives Documents on File Type Date Recorded Patient Dispatcher Radio Expl anation Healthcare Directive 02/03/2017 9:44 AM Leticia CEBALLOS, 01/21/2015 * Full Code (Latest Code Status on File) Date Activated Date Inactivated Comments 10/19/2018 7:08 AM 10/19/2018 1:17 PM * Full Code Date Activated Date Inactivated Comments 02/10/2017 7:38 AM 02/11/2017 1:54 PM Question Answer Comments Code Status Discussion: Not Discussed * Full Code Date Activated Date Inactivated Comments 03/14/2014 6:23 AM 03/15/2014 1:45 PM * Full Code Date Activated Date Inactivated Comments 03/01/2014 9:12 PM 03/04/2014 2:38 PM * Full Code Date Activated Date Inactivated Comments 09/03/2013 1:23 PM 09/04/2013 12:34 PM Care Teams Greige Goods Examiner Relationship Specialty Start Date End Date Karen Ibarra PA [address] [place] [address] PCP - General Family Practice 06/09/10 Eve Yap RN [facility] [address] [id number] Photograph Mounter - [facility] Registered Nurse 12/15/16 Monalisa Meza RN [facility] [address] [id number] Photograph [facility] - [facility] [place]istered Nurse 12/15/[address] [place] [address] [place] [address] Software Development Engineer Pick Out Hand 07/30/20 Jessica Espinoza, RN [address] [id number] Photograph [facility]ounter - [facility] [place]istered Nurse 12/05/20 Lester Morris MD [address] [address] Endocrinology 09/09/21 Siddhartha Ho DO [address] [address] Pulmonary Medicine 09/09/21 Karol Pinto, PharmD Pharmacist Medication Management Pharmacology 04/01/23 04/11/26
--- OUTSIDE RECORDS SUMMARY | 2023-09-07 21:40 | XMS_ITS | Clinical Summary ---
Author Organization [facility] Address [address] [address] Phone Care Team Providers Care Integration Architect Name Role Phone Unavailable Primary Care Provider Unavailabl e Allergies Active Allergy Reactions Criticality Noted Date Comments Lisinopril Cough 09/29/2018 Immunizations Name Administration Dates Next Due COVID-19 mRNA Vaccine (Moder na - 18+ Yrs) 06/17/2021,01/12/2021,05/01/2020, 0 21 Social History Tobacco Use Types Packs/Day Years Used Date Smoking Tobacco: Never Assessed Sex and Gender Information Value Date Recorded Sex Assigned at Not on file Gender Identity Not on file Sexual Orientation Not on file Last Filed Vital Signs Vital Sign Reading Time Taken Comments Blood Pressure 164/91 09/29/2018 9:04 PM CDT Pulse 88 09/29/2018 9:04 PM CDT Temperature 36.3 ??C (97.3 ??F) 09/29/2018 9:04 PM CD T Respiratory Rate 18 09/29/2018 9:04 PM CDT Oxygen Saturation 97% 09/29/2018 9:04 PM CDT Inhaled Oxygen Concentration - - Weight 121.1 kg (267 lb) 09/29/2018 9:04 PM CDT Height 172.7 cm (5' 8) 09/29/2018 9:04 PM CDT Body Mass Index 40.6 09/29/2018 9:04 PM CDT Plan of Treatment Health Maintenance Due Date Last Done Comments CT Colonography 1952 Cologuard 1950 Colonoscopy 1952 Colorectal Cancer Screening 1950 FIT/FOBT 1952 Sigmoidoscopy 1950 PERTUSSIS (Standing Order) 01/03/1971 TETANUS (Standing Order) 01/03/1971 Shingrix (Zoster recombinant ) vaccine (Standing Order) (1 of 2) 01/03/2002 RSV Vaccination (60+ yrs) (Abrysvo/Arexvy) (1 - 1-dose 60+ series) 2012 Pneumococcal Vaccine: 65+ yr s (Standing Order) (1 of 1 - PCV) 01/03/2017 Influenza Vaccine Seasonal (Standing Order) (#1) 2023 HPV Vaccine (Standing Order) Aged Out No longer eligible based on patient's age to complete this topic Hepatitis B Vaccine (Standin g Order) Aged Out No longer eligible b ased on patient's age to complete this topic
--- OUTSIDE RECORDS SUMMARY | 2023-09-07 21:40 | XMS_ITS | Continuity of Care Document ---
Author Organization [facility] Address [address] [facility] [place] [address] Phone Care Team Providers Care News Wire Photo Operator Name Role Phone Will Darrel STALLINGS Unavailable [...] times every day 2.5 MG - Active polyethylene glycol 3350 17 [...] route every day 100 MG - Active pioglitazone 30 mg tablet take 1 tablet by oral route every day 30 MG - Active metformin 500 mg tablet take 5 tablet by oral route 2 times every day with morning and evening meals 2500 MG - Active melatonin 3 mg tablet - Active Lantus Solostar U-100 Insulin 100 unit/mL (3 mL) subcutaneous pen inject by subcutaneous route as per insulin protocol 0.00 - Active gabapentin 300 mg capsule take 1 capsule by oral route 3 times every day 300 MG - Active furosemide 20 mg tablet take 1 tablet by oral route every day 20 MG - Active glipizide 10 mg tablet take 1 tablet by oral route 2 times every day before a meal 10 MG - Active Eliquis 5 mg tablet take 1 tablet by oral route 2 times every day 5 MG - Active DOK 100 mg capsule take 1 capsule by oral route every day at bedtime as needed - Active cyclobenzaprine 10 mg tablet take 1 tablet by oral route 3 times every day 10 MG - Active cetirizine 10 mg tablet take 1 tablet by oral route every day 10 MG - Active atomoxetine 100 mg capsule take 1 capsule by oral route every day 100 MG - Active amlodipine 10 mg tablet take 1 tablet by oral route every day 10 MG - Active Procedures Procedure Date OFFICE/OUTPATIENT VISIT, EST OFFICE/OUTPATIENT VISIT, EST OFFICE/OUTPATIENT VISIT, EST OFFICE CONSULTATION Advance Directives Directive Yes / No Effective Date File Name No Information Encounters Encounter Description Practice Location Reason(s) For Visit Diagnoses Date Provider Providers Copied on Encounter [facility], [address] [place], [place], [id number], [place] tel:[phone] [facility] No Information 2 Evan Rojo. [address] [place], [place], [id number], [place]. tel:[phone] OFFICE/OUTPATI ENT VISIT, EST [facility], [address] [place], [place], [id number], [place] tel:[phone] [facility] low back pain (chief complaint) Other cervical disc degeneration, unsp cervical regionOther intervertebral disc degeneration, lumbar regionOth specific arthropathies, NEC, oth siteOther group home (current) drug therapy [address], [place], [place], [address], [place]. tel:[phone] OFFICE/OUTPATI ENT VISIT, [facility], [address] [place] [address], [id number], [place] tel:[phone] [facility] low back pain (chief complaint) Other cervical disc degeneration, unsp cervical regionOther intervertebral disc degeneration, lumbar regionOth specific arthropathies, NEC, oth siteOther oil heaterman (current) drug therapy 9 Faulknerolinda Carrillo. [address], [place], [place], [address], [place]. tel:[phone] OFFICE/OUTPATI ENT VISIT, [facility], [address] [place], [place], [address], [place] tel:[phone] [facility] low back pain (chief complaint) Other cervical disc degeneration, unsp cervical regionOther intervertebral disc degeneration, lumbar regionOth specific arthropathies, NEC, oth siteOther group home (current) drug therapy [address], [place], [place], [address], [place]. tel:[phone] Referring Provider: Darrel Garcia, [address] [place], [address] . tel:[phone] OFFICE CONSULTATION [facility], [address] [place] [address], [id number], [place] tel:[phone] [facility] low back pain (chief complaint) Other cervical disc degeneration, unsp cervical regionOth specific arthropathies, NEC, oth siteLow back painChronic pain syndromeOther group home (current) drug therapyOther intervertebral disc degeneration, lumbar region [address]. [address], [place], [place], [id number], [place]. tel:[phone] Referring Provider: Lavelle Christiansen [address], [place], [address]. tel:[phone] [facility], [address] [facility] [place], [address], [place] tel:[phone] [facility] [place] No Information 9 Evan Rojo. [address] [place], [place], [id number], [place]. tel:[phone] Family History Family Member Type Diagnosis Age At Onset No Information Payers Payer name Insurance type Covered alliance party ID Authoriza shameka(s) [employer] [id number] Social History Type Description Quantity Date Captured [...] or concerns. low back pain (comments) Guillermo krishna ruthy [...] [facility] oil heaterman benefit yet.Guillermo is not accompanied by anyone [...] sitting. low back pain (comments) Guillermo ambrose mindy for initial consult regarding lower back pain. [...] may improve his pain and would like [facility] to resume management of care. [...]
--- OUTSIDE RECORDS SUMMARY | 2023-09-07 21:40 | XMS_ITS | Clinical Summary ---
Author Organization [place] Address [address] [facility] [place] [address] Care Team Providers Care Boarding Room Fixer Name Role Phone Karen Ibarra Marjorie Primary Care Provider Allergies Active Allergy Reactions Criticality Noted Date [...] obstructive pulmonary disease) Overview: Quit smoking 2002. [id number] years. PFTS 03/24 - FEV1- 1.08 (30%), ratio 0.53 Family History Medical History Relation Comments Unknown/Adopted No family hx of Social History Tobacco Use Types Packs/Day Years [...] of Treatment Not on file Care Teams Boarding Room Fixer Relationship Specialty Start Date End Date Karen Ibarra PCP - General Physician Night Worker 10/28/17
--- OUTSIDE RECORDS SUMMARY | 2023-09-07 21:41 | XMS_ITS | Continuity of Care Document ---
Author Organization [facility] Address [address] [facility] [place] [address] Phone Care Team Providers Care Financial Cost Analyst Name Role Phone Will Darrel STALLINGS Unavailable [...] Diagnoses Date Provider Providers Copied on Encounter [facility], [address] [place], [place], [id number], [place] tel:[phone] [facility] No Information 2 Evan Low. [address] [place], [place], [id number], [place]. tel:[phone] OFFICE/OUTPATI ENT VISIT, EST [facility], [address] [place], [place], [id number], [place] tel:[phone] [facility] low back pain (chief complaint) Other cervical disc degeneration, unsp cervical regionOther intervertebral disc degeneration, lumbar regionOth specific arthropathies, NEC, oth siteOther half-way (current) drug therapy [address], [place], [place], [address], [place]. tel:[phone] OFFICE/OUTPATI ENT VISIT, [facility], [address] [place] [address], [id number], [place] tel:[phone] [facility] low back pain (chief complaint) Other cervical disc degeneration, unsp cervical regionOther intervertebral disc degeneration, lumbar regionOth specific arthropathies, NEC, oth siteOther termite exterminator helper (current) drug therapy 9 Faulkner[address]inda Carrillo. [address], [place], [place], [address], [place]. tel:[phone] OFFICE/OUTPATI ENT VISIT, [facility], [address] [place], [place], [id number], [place] tel:[phone] [facility] low back pain (chief complaint) Other cervical disc degeneration, unsp cervical regionOther intervertebral disc degeneration, lumbar regionOth specific arthropathies, NEC, oth siteOther half-way (current) drug therapy [address], [place], [place], [address], [place]. tel:[phone] Referring Provider: Darrel Garcia, [address] [place], [address] . tel:[phone] [facility], [address] [place] [address], [id number], [place] tel:[phone] [facility] low back pain (chief complaint) Other cervical disc degeneration, unsp cervical regionOth specific arthropathies, NEC, oth siteLow back painChronic pain syndromeOther half-way (current) drug therapyOther intervertebral disc degeneration, lumbar region 9 [address], [place], [place], [id number], [place]. tel:[phone] Referring Provider: Lavelle Christiansen [address], [place], [address]. tel:[phone] [facility], [address] [facility] [place], [address], [place] tel:[phone] [facility] [place] No Information 9 Evan Rojo. [address] [place], [place], [id number], [place]. tel:[phone] Family History Family Member Type Diagnosis Age At Onset No Information Payers Payer name Insurance type Covered green party ID Authoriza shameka(s) [employer] [id number] Social History Type Description Quantity Date Captured [...] [facility] of termite exterminator helper benefit yet.Guillermo is not accompanied by anyone [...] may improve his pain and would like [facility] to resume management of care. He is [...]
--- OUTSIDE RECORDS SUMMARY | 2023-09-07 21:41 | XMS_ITS | Continuity of Care Document ---
Author Organization [facility] Address [address] [address] [place] [address] Phone Care Team Providers Care Sweater Designer Name Role Phone Rupesh Laws MD Unavailable Unavaila ble Medications Medication Instructions Dosage Effective Dates (start - stop) Status Comments MiralaxBisacodylMagCit Colon Prep Use as directed - Active Procedures Procedure Date Colonoscopy Flex; W/remov Les- 19 Advance Directives Directive Yes / No Effective Date File Name No Information Encounters Encounter Description Practice Location Reason(s) For Visit Diagnoses Date Provider Providers Copied on Encounter [facility], [address] [address], [place], [place], [id number], [place] tel:[phone] [facility] No Information Sep-0 0 Veto Goddard. [address] [place] [address], [id number], [place]. tel:[phone] [facility], [address] [address], [place], [place], [address], [place] tel:[phone] [facility] No Information Sep-0 9 Joaquin Rolle. [address] [place] [address], [id number], [place]. tel:[phone] Referring Provider: Sariah Nuñez MD, [address], [address] . tel:[phone] [facility], [address] [address], [place], [address], [place] tel:[phone] [facility] No Information 7 Link MD Mann. [address] [facility] [address], [place], [place], [address], [place]. tel:[phone] Family History Family Member Type Diagnosis Age At Onset No Information Payers Payer name Insurance type Covered libertarian ID Authoriza tion(s) No Information Social History [...]
[2023-09-07 21:42] LABS: C Reactive Protein* 5.6 mg/dL (0.5-1.0)
[2023-09-07 21:50] LABS: NT Pro B Type NatriureticPept* 97 pg/mL
[2023-09-07 22:00] VITALS: PULSE 96; O2SAT 96
[2023-09-07 22:07] LABS: PCR FLU A Negative PCR FLU A (Negative); PCR FLU B Negative PCR FLU B (Negative); PCR RSV Negative PCR RSV (Negative); SARS PCR* Negative SARS-CoV-2 (Negative)
== END 2023-09-07 22:39 | disposition home or self-care (01) ==
PROVIDERS: Emergency Provider Family Medicine; PCP Physician Assistant Medical
DX: R06.00 Dyspnea, unspecified (principal); R60.9 Edema, unspecified
CPT/HCPCS: 36415; 71045; 80048; 80076; 83735; 83880; 85025; 86140; 87631; 93005; 99284; 99285

== ENCOUNTER 2023-09-13 12:23 | Outpatient (CLI) | payer OTHER, SELFPAY ==
--- OUTSIDE RECORDS SUMMARY | 2023-09-13 12:25 | XMS_ITS | Clinical Summary ---
Author Organization [facility] Address [address] [address] Phone Care Team Providers Care Art Conservator Name Role Phone Unavailable Primary Care Provider [...]
--- OUTSIDE RECORDS SUMMARY | 2023-09-13 12:25 | XMS_ITS | Clinical Summary ---
Author Organization [place] Address [address] [facility] [place] [address] Care Team Providers Care Lubrication Equipment Servicer Name Role Phone Karen Ibarra Marjorie Primary Care Provider [phone] Allergies Active Allergy Reactions Criticality Noted Date [...] obstructive pulmonary disease) Overview: Quit smoking 2002. [id number] years. PFTS 03/24 - FEV1- 1.08 (30%), [...] of Treatment Not on file Care Teams Lubrication Equipment Servicer Relationship Specialty Start Date End Date Karen Ibarra PCP - General Physician Firer Powerhouse 10/28/17
--- OUTSIDE RECORDS SUMMARY | 2023-09-13 12:25 | XMS_ITS | Clinical Summary ---
Author Organization [employer] [facility] [employer] [facility] Address [place], [place] [address] Care Team Providers Care Head Of English Name Role Phone Karen Ibarra Primary Care Provider Eve Yap RN Unavailable [phone] Monalisa Meza RN Unavailable [phone] Unavailable Jessica Espinoza RN Unavailable Lester Morris MD Unavailable Siddhartha Ho DO Unavailable Karol Pinto PharmD Unavailable Allergies Active Allergy Reactions Criticality Noted Date Comments Lisinopril Cough 04/18/2009 Medications Medication Sig Dispensed Refills Start Date End Date Status flash glucose scanning reader (FreeStyle Brendan 2 [place]) miscIndications:Ty pe 2 diabetes mellitus with diabetic [...] needed. 96 Each 11 3 Active Insulin Banner, Disposable, (BD Audelia 2nd Gen Pen Needle) 32 gauge x 5/32Indications:C ontrolled type 2 diabetes mellitus without complication, unspecified whether intermediate insulin use (HC) Use four times daily [...] time/day 100 Each 3 3 Active lancets (EnflickTouch Delica Plus Lancet) 33 gauge miscIndications:Ty pe [...] be used to read blood sugars, follow barkeeper directions. 6 Each 3 4 Active budesonide-formote [...] diabetes mellitus with diabetic neuropathy, unspecified whether intermediate insulin use (HC) Inject 57 units subcutaneous before bedtime. 60 mL 4 Active amLODIPine (NORVASC) 10 mg tabletIndications: Essential hypertension Take 1 Tablet (10 mg) by mouth once daily. 90 Tablet 4 Active trimethoprim-sulfa methoxazole, 160-800 mg, (BACTRIM DS, SEPTRA DS) tabIndications:Acu te UTI Take 1 Tablet by mouth two times daily. 20 Tablet 4 Active metOLazone (ZAROXOLYN) 2.5 mg tabletIndications: Bilateral lower extremity edema Take one tablet now 1 Tablet 4 Active amLODIPine (NORVASC) 10 mg [...] 24 Discontinue d(Duplicate therapy (E-cancel not sent)) metFORMIN (GLUCOPHAGE) 500 mg tabletIndications: DM type 2, controlled, with complication (HC) Take 2 tablets (1,000 mg) by mouth two times daily with meals. 360 Tablet 1 4 09/02/19 24 Discontinue d(Reorder (E-cancel not sent)) insulin glargine, U-100, (Lantus Solostar U-100 Insulin) 100 unit/mL (3 mL) penIndications:Typ e 2 diabetes mellitus with diabetic neuropathy, unspecified whether intermediate insulin use (HC) Inject 60 units subcutaneous [...] days. 12 Tablet 4 09/11/19 24 Active Problems Problem Noted Date Diagnosed Date Ulcer of lower extremity, un specified laterality, unspecified ulcer stage 02/16/2023 Chronic venous hypertension (idiopathic) with ulcer and inflammation of bilateral lower extremity 02/16/2023 Unspecified inflammatory spondylopathy, cervical region 01/22/2020 Chronic insomnia 12/25/2019 LUCIEN 10/05/2006 AHI/RDI:13 (70 in REM sleep) 10/24 [...] Encounters Date Type Department Care Team Description 09/12/2023 Refill [facility] [address] [facility] [address] [place] [address] Lester Morris MD Refill Request (Novolog Flexpen U-100 Insulin) 09/10/2023 Travel 09/09/2023 2:35 PM CDT Office Visit [facility] [[email or web address] [address] [place] [address] Bri Melton, DO Wound Check (week Follow up ) 09/09/2023 Travel 09/07/2023 Orders Only [facility] Scanner 1 scan: (1-Ord) LIN, XR CHEST 1V PORTABLE, 09/07/2023 09/06/2023 10:50 AM CDT Office Visit [facility] [[email or web address]] [address] [place] [address] Karen Ibarra PA Breathing Problem; Urinary Problem (blood in urine); Leg Swelling 09/06/2023 Travel 09/05/2023 3:30 PM CDT Telemedicine [facility] [address] [place] [address] Lester Morris MD Telehealth 09/05/2023 Telephone [facility] [address] [place] [address] Lester Morris MD Prior Authorization (FreeStyle Brendan 3 Sensor for continuous blood glucose monitor (CGM) Approved 09/06/23-09/05/26) 09/02/2023 Travel 08/25/2023 Orders Only [facility] [address] [place] [address] Pravin Coley [facility] <No scans attached> 08/24/2023 11:50 AM CDT Office Visit [facility] [[email or web address]] [address] [place] [address] Karen Ibarra PA Breathing Problem (Was seen by Sylvia on 08/18 for this, was put on prednisone, feeling better but still SOB. ); Edema (Leg swelling - has small blister on L leg) 08/24/2023 Travel 08/22/2023 Telephone [facility] [address] [place] [address] Karol Pinto, PharmD Pharmacist Medication Management (Brendan CGM issues) 08/19/2023 1:40 PM CDT Telemedicine [facility] [[email or web address]] [address] [place] [address] Sylvia Raya PA Breathing Problem 08/19/2023 Travel 08/11/2023 Orders Only [facility] Scanner 1 scan: (1-Ord) INCOMING RECORDS-DIABETIC EYE, [facility], 08/11/2023 08/09/2023 Refill [facility] [[email or web address]] [address] [place] [address] Karen Ibarra PA Refill Request (Pramipexole) 08/03/2023 11:30 AM CDT Office Visit [facility] [[email or web address]] [address] [facility] [place] [address] Karen Ibarra PA Medication Management (Gabapentin & Strattera, wants to discuss changing these, read that these cause memory loss) 08/03/2023 Telephone [facility] [[email or web address]] [address] [place] [address] Karen Ibarra PA Questions (atomoxetine (Strattera) 40 mg capsule/) 08/03/2023 Travel 07/27/2023 Refill [facility] [address] [facility] [place] [address] Lester Morris MD Refill Request (Insulin Aspart (U-100)) 07/14/2023 3:45 PM CDT Office Visit [facility] [address] [place] [address] Siddhartha Ho, DO Follow Up (COPD) 07/14/2023 Travel 07/13/2023 2:15 PM CDT Phone Office Visit [facility] [address] [place] [address] Pravin Coley [facility] 07/13/2023 Travel 07/06/2023 Telephone [facility] [address] [place] [address] Pravin Coley [facility] Questions (wants call ) 07/05/2023 Orders Only [facility] Scanner 1 scan: (1-Ord) INCOMING RECORDS-DIABETIC EYE, [facility], 07/05/2023 07/04/2023 1:00 PM CDT Phone Office Visit [facility] [address] [place] [address] Pravin Coley [facility] 07/04/2023 Travel 06/28/2023 Travel 06/27/2023 1:40 PM CDT Office Visit [facility] [[email or web address] [address] [place] [address] Karen Ibarra PA Finger Injury (R middle finger - cut while cutting onions) 06/27/2023 Travel 06/18/2023 Refill [facility] [address] [place] [address] Pravin Coley, [facility] Refill Request (Cyclobenzaprine) from Last 3 Months Immunizations Name Administration Dates Next Due COVID-19 Vaccine Spikevax (M oderna 50mcg/0.5mL) 12YO+ [id number] Formula PF 05/16/2023 COVID-19 vaccine (Moderna 100mcg/0.5mL) [...] Sign Reading Time Taken Comments Blood Pressure 125/69 09/09/2023 2:34 PM CDT Pulse 80 09/09/2023 2:34 PM CDT Temperature 36.6 ??C (97.9 ??F) 09/06/2023 1 1:04 AM CDT Respiratory Rate 20 07/14/2023 3:54 PM CDT Oxygen Saturation 95% 09/09/2023 2:34 PM CDT Inhaled Oxygen Concentration - - Weight 119.2 kg (262 lb 12.8 oz) 09/09/2023 2:34 PM CDT Height 172 cm (5' 7.7) 07/14/2023 3:54 PM CDT Body Mass Index 40.31 07/14/2023 3:54 PM CDT Plan of Treatment Upcoming Encounters Date Type Department Care Team (Late st Contact Info) Description 09/14/2023 1:00 PM CDT Ancillary Procedure [facility] [address] [place] [address] 01/13/2024 3:00 PM PMP PROJECT MANAGER Telemedicine [facility] [address] [facility] [place] [address] Pravin Coley, [facility] [address] [facility] [place] [address] Health Maintenance Due Date Last Done Comments [...] Procedure Name Priority Date/Time Associated Diagnosis Comments SCAN-RADIOLOGY REPORT 09/07/2023 12:00 AM CDT URINE CULTURE Add On 09/06/2023 11:02 AM CDT Acute UTI URINALYSIS MICROSCOPIC Routine 09/06/2023 11:02 AM CDT [...] screening ANTI HCV Routine 04/08/2017 3:48 PM PMP PROJECT MANAGER Encounter for hepatitis C screening test for low risk patient from Last 3 Months or Most Recently Relevant to Health Maintenance Results * SCAN-RADIOLOGY REPORT (09/07/2023 12:00 AM CDT) Anatomical Region Laterality Modality Other Scanner OTHER * (ABNORMAL) URINALYSIS MICROSCOPIC (09/06/2023 11:02 AM CDT) RBC >100(A) 0-2, None Seen /HPF 09/06/2023 11:07 AM CDT [facility] WBC 11-25(A) 0-2, 3-5, None Seen /HPF 09/06/2023 11:07 AM CDT [facility] BACTERIA Few None Seen, Rare, Few Bacteria/H PF 09/06/2023 11:07 AM CDT [facility] EPITHELIAL CELLS Few None Seen, Few Epi/HPF 09/06/2023 11:07 AM CDT [facility] Urine URINE SPECIMEN / Unknown Non-Blood / Unknown 09/06/2023 11:02 AM CDT 09/06/2023 11:02 AM CDT Karen ESQUIVEL URINE [facility] [address] [place] [address], * URINE CULTURE (09/06/2023 11:02 AM CDT) CULTURE <10,000 CFU/mL multiple organisms 09/08/2023 12:14 PM CDT [facility] Urine URINE SPECIMEN / Unknown Non-Blood / Unknown 09/06/2023 11:02 AM CDT 09/06/2023 11:02 AM CDT Karen ESQUIVEL MICROBIOLOGY [facility] [address] [place] [address], [place] * (ABNORMAL) UA W/ SEDIMENT EXAM REFLEXED PER CRITERIA (09/06/2023 11:02 AM CDT) COLOR Yellow Yellow Color 09/06/2023 11:07 AM CDT [facility] CLARITY Cloudy(A) Clear Clarity 09/06/2023 11:07 AM CDT [facility] SPECIFIC GRAVITY,URINE 1.020 1.010, 1.015, 1.020, 1.025 09/06/2023 11:07 AM CDT [facility] PH,URINE 7.0 6.0, 7.0, 8.0, 5.5, 6.5, 7.5, 8.5 09/06/2023 11:07 AM CDT [facility] UROBILINOGEN, QUALITATIVE Normal Normal EU/dl 09/06/2023 11:07 AM CDT [facility] PROTEIN, URINE 100(A) Negative mg/dL 09/06/2023 11:07 AM CDT [facility] GLUCOSE, URINE Negative Negative mg/dL 09/06/2023 11:07 AM CDT [facility] KETONES,URINE Negative Negative mg/dL 09/06/2023 11:07 AM CDT [facility] BILIRUBIN,URI NE Negative Negative 09/06/2023 11:07 AM CDT [facility] OCCULT BLOOD,URINE Large(A) Negative 09/06/2023 11:07 AM CDT [facility] NITRITE Negative Negative 09/06/2023 11:07 AM CDT [facility] LEUKOCYTE ESTERASE Small(A) Negative 09/06/2023 11:07 AM CDT [facility] Urine URINE SPECIMEN / Unknown Non-Blood / Unknown 09/06/2023 11:02 AM CDT 09/06/2023 11:02 AM CDT Karen ESQUIVEL URINE Performing Organization Address City/[facility]/ZIP Co de Phone Number [facility] [address] [place] [address], [place] [phone] * SCAN-EYE EXAM (08/11/2023 12:00 AM CDT) Scanner OTHER * SCAN-EYE EXAM (07/05/2023 12:00 AM CDT) Scanner OTHER * OCCULT BLOOD IFOBT STOOL (05/17/2023 12:24 PM CDT) STOOL BLOOD ,IFOBT Negative Negative 05/27/2023 7:28 AM CDT [facility] [place] Stool STOOL SPECIMEN / Unknown Non-Blood / Unknown 05/17/2023 12:24 PM CDT 05/24/2023 12:24 PM CDT Karen ESQUIVEL LABORATORY [facility] [place] [address] [place] [address], [place] [phone] * (ABNORMAL) LIPID PANEL W REFLEX MEASURED LDL (05/16/2023 3:27 PM CDT) CHOLESTEROL,TOTAL 107 100 - 199 mg/dL 05/16/2023 9:24 PM CDT [facility] Comment: Cholesterol, Total Reference Ranges Desirable <200 mg/dL Borderline 200-239 mg/dL High >=240 mg/dL TRIGLYCERIDES 92 <150 mg/dL 05/16/2023 9:24 PM CDT [facility] HDL CHOLESTEROL 40(L) >40 mg/dL 9:24 PM CDT [facility] NON-HDL CHOLESTEROL 67 <145 mg/dl 05/16/2023 9:24 PM CDT [facility] CHOL/HDL RATIO 2.68 <4.50 05/16/2023 9:24 PM CDT [facility] LDL CHOLESTEROL 49 <=130 mg/dL 05/16/2023 9:24 PM CDT [facility] VLDL CHOLESTEROL 18 <=30 mg/dL 05/16/2023 9:24 PM CDT [facility] PROVIDER ORDERED STATUS RANDOM 05/16/2023 9:24 PM CDT [facility] Blood BLOOD SPECIMEN / Unknown Venipuncture / Unknown 05/16/2023 3:27 PM CDT 05/16/2023 3:28 PM CDT Karen ESQUIVEL CHEMISTRY [facility] [address] [place] [address], [place] * [place] ABD AORTA SCREENING (10/15/2022 [...] Dictated by Mirza Romero MD @ Sep ??1 2022 10:59AM (Electronically Signed) ?? Procedure Note Mirza Romero MD - 10/15/2022 For Patients: As a result of the Century Cures Act, medical imagingexams and procedure reports [...] well evaluated due to habitus. Dictated by Mriza Romero MD @ Oct 15 2022 10:59AM (Electronically Signed) Boo Pipe Koo MD [place] * ANTI HCV (04/08/2017 3:48 PM PMP PROJECT MANAGER) HEPATITIS C ANTIBODY Non-Reacti ve Non-Reacti ve 04/09/2017 4:26 PM PMP PROJECT MANAGER [facility] [employer] [facility] Blood BLOOD SPECIMEN / Unknown Butterfly / Unknown 04/08/2017 3:48 PM PMP PROJECT MANAGER 04/08/2017 3:48 PM PMP PROJECT MANAGER Narrative [facility] - 04/09/2017 4:26 PM PMP PROJECT MANAGER Antibodies to HCV not detected; does not exclude the possibility of exposure to HCV. Karen ESQUIVEL SEND OUTS [facility] [employer] [facility] [address] [place] [address], [place] from Last 3 Months or Most Recently Relevant to Health Maintenance Advance Directives Documents on File Type Date Recorded Patient Caseworker Protective Services Expl anation Healthcare Directive 02/03/2017 9:44 AM [...] 1:23 PM 09/04/2013 12:34 PM Care Teams Head Of English Relationship Specialty Start Date End Date Karen Ibarra PA [address] [place] [address] PCP - General Family Practice 06/09/10 Eve Yap, RN [address] [address] Single Stayer Operator - [facility] Registered Nurse 12/15/16 Monalisa Meza RN [address] [address] Single Stayer Operator - [facility] Registered Nurse 12/15/[address] [place] [id number] Power Cutting Machine Operator Factory Lay Out Engineer 07/30/20 Jessica Espinoza RN [address] [address] Single Stayer Operator - [facility] Registered Nurse 12/05/20 Lester Morris MD [address] [address] Endocrinology 09/09/21 Siddhartha Ho DO [address] [facility] [address] [place] [address] Pulmonary Medicine 09/09/21 Karol Pinto, PharmD Pharmacist Medication Management Pharmacology 04/01/23 04/11/26
--- OUTSIDE RECORDS SUMMARY | 2023-09-13 12:25 | XMS_ITS | Referral Summary ---
Author Organization [employer] Address [address] [facility] [address] Care Team Providers Care Matrix Inspector Name Role Phone Tamela Ibarralidia Amador Primary Care Provider [phone] Allergies Active Allergy Reactions Criticality Noted Date [...] obstructive pulmonary disease) Overview: Quit smoking 2002. [id number] years. PFTS 03/24 - FEV1- 1.08 (30%), [...] of Treatment Not on file Care Teams Matrix Inspector Relationship Specialty Start Date End Date Karen Ibarra PCP - General Physician Appliance Service Technician 10/28/17
--- OUTSIDE RECORDS SUMMARY | 2023-09-13 12:26 | XMS_ITS | Continuity of Care Document ---
Author Organization [facility] jaymie Address [address] [facility] [place] [address] Phone Care Team Providers Care Deputy Coroner Name Role Phone Will Darrel STALLINGS Unavailable [...] Diagnoses Date Provider Providers Copied on Encounter [facility], [address] [place], [place], [id number], [place] tel:[phone] [facility] No Information [address] [place], [place], [id number], [place]. tel:[phone] OFFICE/OUTPATI ENT VISIT, EST [facility], [address] [place], [place], [id number], [place] tel:[phone] [facility] low back pain (chief complaint) Other cervical disc degeneration, unsp cervical regionOther intervertebral disc degeneration, lumbar regionOth specific arthropathies, NEC, oth siteOther custodial (current) drug therapy [address], [place], [place], [id number], [place]. tel:[phone] OFFICE/OUTPATI ENT VISIT, [facility], [address] [place] [address], [id number], [place] tel:[phone] [facility] low back pain (chief complaint) Other cervical disc degeneration, unsp cervical regionOther intervertebral disc degeneration, lumbar regionOth specific arthropathies, NEC, oth siteOther accounting associate (current) drug therapy [address], [place], [place], [id number], [place]. tel:[phone] OFFICE/OUTPATI ENT VISIT, [facility], [address] [place], [place], [id number], [place] tel:[phone] [facility] low back pain (chief complaint) Other cervical disc degeneration, unsp cervical regionOther intervertebral disc degeneration, lumbar regionOth specific arthropathies, NEC, oth siteOther custodial (current) drug therapy [address], [place], [place], [id number], [place]. tel:[phone] Referring Provider: aDrrel Garcia, [address] [place], [address] . tel:[phone] OFFICE CONSULTATION [facility], [address] [place] [address], [id number], [place] tel:[phone] [facility] low back pain (chief complaint) Other cervical disc degeneration, unsp cervical regionOth specific arthropathies, NEC, oth siteLow back painChronic pain syndromeOther custodial (current) drug therapyOther intervertebral disc degeneration, lumbar region [address], [place], [place], [id number], [place]. tel:[phone] Referring Provider: Lavelle Christiansen [address], [place], [address]. tel:[phone] [facility], [address] [facility] [place], [place], [id number], [place] tel:[phone] [facility] [place] No Information [address]. [address] [place], [place], [id number], [place]. tel:[phone] Family History Family Member Type Diagnosis Age At Onset No Information Payers Payer name Insurance type Covered alliance party ID Authoriza shameka(s) [employer] [id number] Social History Type Description Quantity Date Captured [...] [facility] - unsure of accounting associate benefit yet.Guillermo is not accompanied by anyone [...] may improve his pain and would like [facility] to resume management of care. He is [...]
== END 2023-09-13 12:24 | disposition home or self-care (01) ==
PROVIDERS: PCP Physician Assistant Medical; Visit Provider Nurse Practitioner Family
DX: I87.332 Chronic venous hypertension (idiopathic) with ulcer and inflammation of left lower extremity (principal); I87.311 Chronic venous hypertension (idiopathic) with ulcer of right lower extremity; E11.628 Type 2 diabetes mellitus with other skin complications; L97.228 Non-pressure chronic ulcer of left calf with other specified severity; L97.218 Non-pressure chronic ulcer of right calf with other specified severity; L97.828 Non-pressure chronic ulcer of other part of left lower leg with other specified severity; I89.0 Lymphedema, not elsewhere classified; Z79.4 Long term (current) use of insulin; Z79.84 Long term (current) use of oral hypoglycemic drugs
CPT/HCPCS: 97602; G0463

== ENCOUNTER 2023-09-16 15:30 | Outpatient (CLI) | payer OTHER, SELFPAY | END 2023-09-16 15:31 | disposition home or self-care (01) | LOC: WOUND 09-20 12:19 | PROVIDERS: PCP Physician Assistant Medical; Visit Provider Nurse Practitioner Family | DX: I89.0 Lymphedema, not elsewhere classified (principal); I87.332 Chronic venous hypertension (idiopathic) with ulcer and inflammation of left lower extremity; L97.222 Non-pressure chronic ulcer of left calf with fat layer exposed; I87.311 Chronic venous hypertension (idiopathic) with ulcer of right lower extremity; L97.212 Non-pressure chronic ulcer of right calf with fat layer exposed | CPT/HCPCS: G0463 ==

== ENCOUNTER 2023-09-20 11:09 | Outpatient (CLI) | payer OTHER, SELFPAY | END 2023-09-20 11:10 | disposition home or self-care (01) | LOC: WOUND 11:09 | PROVIDERS: PCP Physician Assistant Medical; Visit Provider Nurse Practitioner Family | DX: I87.332 Chronic venous hypertension (idiopathic) with ulcer and inflammation of left lower extremity (principal); L97.822 Non-pressure chronic ulcer of other part of left lower leg with fat layer exposed; I89.0 Lymphedema, not elsewhere classified | CPT/HCPCS: 97602; G0463 ==

== ENCOUNTER 2023-10-04 10:34 | Outpatient (CLI) | payer OTHER, SELFPAY | END 2023-10-04 10:35 | disposition home or self-care (01) | LOC: WOUND 10:34 | PROVIDERS: PCP Physician Assistant Medical; Visit Provider Nurse Practitioner Family | DX: I89.0 Lymphedema, not elsewhere classified (principal) | CPT/HCPCS: G0463 ==

== ENCOUNTER 2023-11-09 14:45 | Outpatient (RCR) | payer OTHER, SELFPAY | END 2024-03-08 23:59 | disposition home or self-care (01) | PROVIDERS: PCP Physician Assistant Medical; Visit Provider Family Medicine | DX: R60.0 Localized edema (principal); I89.0 Lymphedema, not elsewhere classified; Z51.89 Encounter for other specified aftercare | CPT/HCPCS: 97140; 97165; 97535 ==

== ENCOUNTER 2023-12-06 17:53 | Emergency (ER) | payer OTHER, SELFPAY ==
[2023-12-06 18:07] VITALS: BP 136/56; PULSE 83; RESP 20; TEMP 36.8; O2SAT 96; BMI 38.0
--- NOTE | 2023-12-06 18:23 | ED.GENADULT ---
HPI - General Adult General Chief complaint: Urogenital Problems, Male Stated complaint: Genital infection Time Seen by Provider: 12/06/23 18:09 Related Data Home Medications ?Medication ?Instructions ?Recorded ?Confirmed albuterol sulfate 90 mcg/actuation inhalation 03/09/22 07/08/22 aerosol inhaler amlodipine 10 mg tablet mg 03/09/22 07/08/22 apixaban 5 mg tablet (Eliquis) mg 03/09/22 07/08/22 atomoxetine 100 mg capsule mg PO 03/09/22 07/08/22 budesonide-formoterol HFA 160 inhalation 03/09/22 07/08/22 mcg-4.5 mcg/actuation aerosol inhaler (Symbicort) calcium 600 mg (as tab PO 03/09/22 07/08/22 carbonate)-vitamin D3 10 mcg (400 unit) tablet carvedilol 3.125 mg tablet mg 03/09/22 07/08/22 clotrimazole-betamethasone 1 applic topical 03/09/22 07/08/22 %-0.05 % topical cream docusate sodium 100 mg capsule mg PO 03/09/22 07/08/22 furosemide 40 mg tablet mg 03/09/22 07/08/22 gabapentin 300 mg capsule mg 03/09/22 07/08/22 insulin aspart U-100 100 unit/mL subcut 03/09/22 07/08/22 (3 mL) subcutaneous pen (Novolog FlexPen U-100 Insulin aspart) insulin glargine 100 unit/mL (3 unit subcut 03/09/22 07/08/22 mL) subcutaneous pen (Lantus Solostar U-100 Insulin) ipratropium 0.5 mg-albuterol 3 mg ml inhalation 03/09/22 07/08/22 (2.5 mg base)/3 mL nebulization soln losartan 100 mg tablet mg 03/09/22 07/08/22 metformin 500 mg tablet mg 03/09/22 07/08/22 propylene glycol 0.6 % eye drops drp 03/09/22 07/08/22 (Systane Complete) rosuvastatin 10 mg tablet mg 03/09/22 07/08/22 tiotropium bromide 2.5 inhalation 03/09/22 07/08/22 mcg/actuation mist for inhalation (Spiriva Respimat) prednisone 10 mg tablet mg PO 09/07/23 sulfamethoxazole 800 1 tab PO BID 09/07/23 09/07/23 mg-trimethoprim 160 mg tablet Previous Rx's ?Medication ?Instructions ?Recorded doxycycline hyclate 100 mg capsule 100 mg PO Q12H #14 caps 09/15/22 prednisone 20 mg tablet 20 mg PO DIRECTED 9 days #18 11/21/22 tabs clotrimazole 1 % topical ointment 1 applic topical BID #56.7 grams 12/06/23 Allergies Allergy/AdvReac Type Severity Reaction Status Date / Time lisinopril Allergy Mild Cough Verified 09/07/23 20:34 [facility] Social History Smoking Status: Former smoker Do you use any of these nicotine containing products: None Second hand tobacco smoke exposure: No How often do you have a drink containing alcohol: never AUDIT-C Alcohol total score: 0 Non-prescribed substance use: denies use Exam Narrative: Exam Narrative: Vital signs as noted above. In general, an alert, well-appearing patient. Head: Normocephalic, atraumatic. Eyes: Pupils are equal reactive. Extraocular movements are full. Conjunctivae are normal. ENT: Mucous membranes are moist. Throat is normal. Neck: Supple without lymphadenopathy. Heart: Regular rate and rhythm. No murmur or rub. Lungs: Clear bilaterally. No increased work of breathing, crackles or wheezes. Abdomen: Soft and nontender. Protuberant. : He is circumcised. There is some erythema of the head of the penis and there is some seemingly little bit of swelling at the base of the penis. The scrotum is erythematous but there is no warmth, no tenderness and no swelling of the scrotum. There is no tenderness throughout the groin. There is no crepitus or subcu air, everything looks well perfused. He does have some purulent although not foul smelling discharge noted at the base of the penis. Extremities: Well perfused. No edema. No calf tenderness. Pulses intact. Neurologic: Patient is alert and oriented to person and place. Speech is fluent. Face is symmetric. Moves all extremities equally. Affect: Normal. Skin: Warm and dry. Well perfused. Const: Vital Signs, click to edit/add: Vital Signs - 24 hr 12/06/23 18:07 Temperature 98.3 F Pulse Rate [Pulse Oximeter] 83 Respiratory Rate 20 Blood Pressure [Ri ght Upper Arm] 136/56 L Pulse Oximetry 96 Oxygen Delivery Me thod Nasal Cannula Oxygen Flow Rate 2 Course Course ED Course: In trying to determine what his baseline anatomy is, he says that he is circumcised, but had some kind of problem with urinating through the end of his penis and so an alternative route was established on the underside of the head of the penis. He feels that the area is a little more swollen than usual, but is specifically denying any kind of pain aside from when he urinates. Overall, I think exam suggests a component of balanitis, I did do a urinalysis here which suggest possible urinary tract infection with positive nitrites, 10-25 white blood cells few bacteria few squames. His labs are notable for mildly elevated white blood cell count of 12-1/2, hemoglobin of 11.8, 80% neutrophils. Metabolic panel is normal, lactate is 1.3, CRP is 12.8 and procalcitonin is 0.05. I do not believe that this represents a Rebecca's gangrene or sepsis. He is circumcised and I do not believe has a paraphimosis. I think it is reasonable to cover him with an antibiotic for urinary tract infection, he was started on Macrobid a couple of days ago but symptoms are no better. Therefore, we will change him to cephalexin, this also should help cover bacterial causes of balanitis. I have also prescribed topical clotrimazole for him to use. I would like him to be re-evaluated in a couple of days in clinic. Reviewed with him if he is getting worse at all in terms of fevers, chills, if he develops pain in the general region, worsening swelling etcetera, he should come back to the emergency department. Vital Signs Vital signs: Initial Vital Signs Temperature 98.3 F 12/06/23 18:07 Temperature Source Temporal Artery Scan 12/06/23 18:07 Pulse Rate 83 12/06/23 18:07 Pulse Rhythm Regular 12/06/23 18:07 Respiratory Rate 20 12/06/23 18:07 Blood Pressure 136/56 L 12/06/23 18:07 Blood Pressure Mean 82 12/06/23 18:07 Pulse Oximetry 96 12/06/23 18:07 Oxygen Delivery Method Nasal Cannula 12/06/23 18:07 Oxygen Flow Rate 2 12/06/23 18:07 Vital Signs Temperature 98.3 F 12/06/23 18:07 Pulse Rate 83 12/06/23 18:07 Respiratory Rate 20 12/06/23 18:07 Blood Pressure 136/56 L 12/06/23 18:07 Pulse Oximetry 96 12/06/23 18:07 Oxygen Delivery Method Nasal Cannula 12/06/23 18:07 Oxygen Flow Rate 2 12/06/23 18:07 Temperature 98.3 F 12/06/23 18:07 Pulse Rate 83 12/06/23 18:07 Respiratory Rate 20 12/06/23 18:07 Blood Pressure 136/56 L 12/06/23 18:07 Pulse Oximetry 96 12/06/23 18:07 Oxygen Delivery Method Nasal Cannula 12/06/23 18:07 Oxygen Flow Rate 2 12/06/23 18:07 Medical Decision Making Lab Data Labs: Lab Results 12/06/23 12/06/23 12/06/23 Range/Units 18:25 18:41 20:17 WBC 12.66 H (4.50-11.00) K/uL RBC 4.25 L (4.30-5.90) m/uL Hgb 11.8 L (13.5-17.5) gm/dL Hct 37.1 (37.0-53.0) % MCV 87 (80-100) fL MCH 28 (26-34) pg MCHC 32 (32-36) gm/dL RDW Coeff of Paulino 13.5 (11.5-15.5) % Plt Count 316 (140-440) K/uL Neut % (Auto) 79.7 H (42.0-72.0) % Lymph % (Auto) 10.2 L (20-44) % [place] % (Auto) 7.3 (0.0-11.0) % Eos % (Auto) 2.4 (0.0-7.0) % Baso % (Auto) 0.2 (0.0-3.0) % Neut # (Auto) 10.10 H (1.7-7.0) K/uL Lymph # (Auto) 1.30 (0.90-2.90) K/uL [place] # (Auto) 0.90 (0.00-0.90) K/UL Eos # (Auto) 0.30 (0.00-0.50) K/uL Baso # (Auto) 0.00 (0.00-0.30) K/uL Abs Immat Gran (auto) 0.00 (0.00-0.30) K/uL Imm/Tot Granulo (auto) 0.2 % Sodium 135 (135-149) mmol/L Potassium 4.1 (3.6-5.1) mmol/L Chloride 97 (96-114) mmol/L Carbon Dioxide 31 (20-32) mmol/L Anion Gap 7 (7-15) mEq/L BUN 16 (7-30) mg/dL Creatinine 0.6 (0.5-1.5) mg/dL Estimated Creat Clear 65.55 Estimated GFR 103 ml/min Glucose 91 (60-115) mg/dL Lactate 1.3 (0.5-1.9) mmol/L Calcium 9.2 (8.4-10.6) mg/dL C-Reactive Protein 12.8 H (0.5-1.0) mg/dL Procalcitonin 0.05 (<0.50) ng/mL Urine Color Yellow (Yellow) Urine Appearance Clear (Clear) Urine pH 5.5 (5.0-8.5) Ur Specific [place] 1.020 (1.000-1.030) Urine Protein 2+ A (Negative) Urine Glucose (UA) Negative (Negative) Urine Ketones Trace A (Negative) Urine Blood 2+ A (Negative) Urine Nitrite Positive A (Negative) Urine Bilirubin Negative (Negative) Urine Urobilinogen 0.2 (0.2-1.0) Ur Leukocyte Esterase 3+ A (Negative) Urine RBC 5-10 A (0-2) Urine WBC 10-25 A (0-5) Ur Squamous Epith Cells Few (None-Few) Urine Bacteria Few A (None) POC Glucose 75 (60-115) mg/dl Discharge Plan Discharge Clinical Impression: Balanitis, Urinary tract infection Patient Disposition: Home, Self-Care Condition: Stable Instructions: Urinary Tract Infection in Men (DC), Balanitis (ED) Additional Instructions: I am prescribing a different antibiotic to cover for urinary tract infection as well as possible soft tissue infection affecting your groin. It is important that you keep this area as clean as possible, and I am prescribing a topical medication that you will need to apply as well. You should be seen by your regular clinic in 2 days time for a recheck. If at any time you develop significant pain in your groin, new symptoms such as fevers, vomiting, chills etcetera return to the emergency department. Prescriptions: New clotrimazole 1 % ointment 1 applic topical BID Qty: 56.7 0RF No Action doxycycline hyclate 100 mg capsule 100 mg PO Q12H Qty: 14 0RF prednisone 10 mg tablet PO sulfamethoxazole-trimethoprim 800-160 mg tablet 1 tab PO BID furosemide 40 mg tablet metformin 500 mg tablet ipratropium-albuterol 0.5 mg-3 mg(2.5 mg base)/3 mL solution for nebulization INHALATION carvedilol 3.125 mg tablet amlodipine 10 mg tablet clotrimazole-betamethasone 1-0.05 % cream TOPICAL docusate sodium 100 mg capsule PO gabapentin 300 mg capsule albuterol sulfate 90 mcg/actuation HFA aerosol inhaler INHALATION losartan 100 mg tablet insulin aspart U-100 [Novolog FlexPen U-100 Insulin] 100 unit/mL (3 mL) insulin pen SUBCUT rosuvastatin 10 mg tablet atomoxetine 100 mg capsule PO calcium carbonate-vitamin D3 600 mg-10 mcg (400 unit) tablet PO budesonide-formoterol [Symbicort] 160-4.5 mcg/actuation HFA aerosol inhaler INHALATION insulin glargine [Lantus Solostar U-100 Insulin] 100 unit/mL (3 mL) insulin pen SUBCUT Systane Complete 0.6 % drops Patient Comments: INSTILL ONE DROP INTO BOTH EYES NEEDED Spiriva Respimat 2.5 mcg/actuation mist INHALATION Eliquis 5 mg tablet prednisone 20 mg tablet 20 mg PO DIRECTED 9 Days Qty: 18 0RF Rx Instructions: 60 mg p.o. daily for 3 days (3 tablets daily on day 1-3), 40 mg daily for 3 days (2 tablets daily on days 4-6), 20 mg daily for 3 days (1 tablet daily on days 7-9). Follow Up/Referrals: McLeran,Karen M, PA-C [Primary Care Provider] - Stand Alone Forms: [email or web address] Info Instructions
--- OUTSIDE RECORDS SUMMARY | 2023-12-06 18:26 | XMS_ITS | Continuity of Care Document ---
Author Organization [facility] Address [address] [address] [place] [address] Phone Care Team Providers Care Motor Vehicles Inspector Name Role Phone Rupesh Laws MD Unavailable [...] Providers Copied on Encounter [facility], [address] [address], [place], [place], [id number], [place] tel:[phone] [facility] No Information Sep-0 0 Veto Goddard. [address] [place] [address], [id number], [place]. tel:[phone] [facility], [address] [address], [place], [place], [id number], [place] tel:[phone] [facility] No Information Sep-0 9 Joaquin Rolle. [address] [place] [address], [id number], [place]. tel:[phone] Referring Provider: Sariah Nuñez MD, [address], [address] . tel:[phone] [facility], [address] [address], [place], [id number], [place] tel:[phone] [facility] No Information 7 Link MD Mann. [address] [facility], [facility] [address], [place], [place], [id number], [place]. tel:[phone] Family History Family Member Type Diagnosis Age [...]
--- OUTSIDE RECORDS SUMMARY | 2023-12-06 18:26 | XMS_ITS | Continuity of Care Document ---
Author Organization [facility]mie Address [address] [facility] [place] [address] Phone Care Team Providers Care Cast Iron Dipper Name Role Phone Will Darrel STALLINGS Unavailable [...] times every day 2.5 MG - Active losartan 100 mg tablet take 1 tablet by oral route every day 100 MG - Active Mapap Arthritis Pain 650 mg tablet,extended release take 2 tablet by oral route every 8 hours as needed swallowing whole with water. Do not break, crush, dissolve and/or chew. - Active Toprol XL 25 mg tablet,extended release take 1 tablet by oral route every day 25 MG - Active Symbicort 160 mcg-4.5 mcg/actuation HFA aerosol inhaler inhale 2 puff by inhalation route 2 times every day in the morning and evening 2.00 puff - Active Spiriva with HandiHaler 18 mcg and inhalation capsules inhale 1 capsule by inhalation route every day using 2 inhalations via handihaler - Active simvastatin 40 mg tablet take 1 tablet by oral route every day in the evening 40 MG - Active polyethylene glycol 3350 17 gram/dose oral powder take (17G) by oral route every day mixed with 8 oz. water, juice, soda, coffee or tea - Active pioglitazone 30 mg tablet take [...] Diagnoses Date Provider Providers Copied on Encounter [facility], [address] [place], [place], [id number], [place] tel:[phone] [facility] No Information 2 Evan Rojo. [address], [place], [id number], [place]. tel:[phone] OFFICE/OUTPATI ENT VISIT, EST [facility], [address] [place], [place], [id number], [place] tel:[phone] [facility] low back pain (chief complaint) Other cervical disc degeneration, unsp cervical regionOther intervertebral disc degeneration, lumbar regionOth specific arthropathies, NEC, oth siteOther usp (current) drug therapy [address] Kaus[address] Carrillo. [address], [place], [place], [address], [place]. tel:[phone] OFFICE/OUTPATI ENT VISIT, [facility], [address] [place] [address], [id number], [place] tel:[phone] [facility] low back pain (chief complaint) Other cervical disc degeneration, unsp cervical regionOther intervertebral disc degeneration, lumbar regionOth specific arthropathies, NEC, oth siteOther local intermodal truck driver (current) drug therapy [address] Faulknerolinda Carrillo. [address], [place], [place], [id number], [place]. tel:[phone] OFFICE/OUTPATI ENT VISIT, [facility], [address] [place], [place], [id number], [place] tel:[phone] [facility] low back pain (chief complaint) Other cervical disc degeneration, unsp cervical regionOther intervertebral disc degeneration, lumbar regionOth specific arthropathies, NEC, oth siteOther usp (current) drug therapy [address] Faulk[address] Carrillo. [address], [place], [place], [id number], [place]. tel:[phone] Referring Provider: Darrel Garcia, [address] [place], [address] . tel:[phone] OFFICE CONSULTATION [facility], [address] [place] [address], [id number], [place] tel:[phone] [facility] low back pain (chief complaint) Other cervical disc degeneration, unsp cervical regionOth specific arthropathies, NEC, oth siteLow back painChronic pain syndromeOther local intermodal truck driver (current) drug therapyOther intervertebral disc degeneration, lumbar region [address] Faulkner[address] Carrillo. [address], [place], [place], [id number], [place]. tel:[phone] Referring Provider: Lavelle Christiansen [address], [place], [address]. tel:[phone] [facility], [address] [facility] [place], [id number], [place] tel:[phone] [facility] [place] No Information 9 Evan Rojo. [address], [place], [id number], [place]. tel:[phone] Family History Family Member Type Diagnosis Age At Onset No Information Payers Payer name Insurance type Covered libertarian ID Authoriza tiyamini(s) [employer] [id number] Social History Type Description Quantity Date Captured [...] and TENS. low back pain (comments) Guillermo erendira bliss [...] [facility] - unsure [facility] usp benefit yet.Guillermo is not accompanied by anyone [...] may improve his pain and would like [facility] to resume management of care. He [...]
--- OUTSIDE RECORDS SUMMARY | 2023-12-06 18:26 | XMS_ITS | Referral Summary ---
Author Organization [facility] Address [address] [place] [address] Care Team Providers Care Bird Sitter Name Role Phone Tamela Ibarralidia Amador Primary Care Provider [phone] Allergies Active Allergy Reactions Criticality Noted Date [...] obstructive pulmonary disease) Overview: Quit smoking 2002. [id number] years. PFTS 03/24 - FEV1- 1.08 (30%), [...] of Treatment Not on file Care Teams Bird Sitter Relationship Specialty Start Date End Date Karen Ibarra PCP - General Physician Or First Assist Registered Nurse 10/28/17
--- OUTSIDE RECORDS SUMMARY | 2023-12-06 18:26 | XMS_ITS | Clinical Summary ---
Author Organization [facility] Address [place], [place] [address] Care Team Providers Care Environmental Air Specialist Name Role Phone Karen Ibarra Primary Care Provider Eve Yap RN Unavailable Monalisa Meza RN Unavailable [phone] Unavailable Jessica Espinoza RN Unavailable Lester Morris MD Unavailable Siddhartha Ho DO Unavailable [phone] Karol Pinto PharmD Unavailable Allergies Active Allergy Reactions Criticality Noted Date Comments Lisinopril Cough 04/18/2009 Medications Medication Sig Dispensed Refills Start Date End Date Status flash glucose scanning reader (FreeStyle Brendan 2 [place]) miscIndications:Ty pe 2 diabetes mellitus with diabetic [...] as needed. 96 Each 11 3 Active pen needle (BD Audelia 2nd Gen Pen Needle) 32 gauge x 5/32 (disposable insulin pen needle)Indications :Controlled type 2 diabetes mellitus without complication, unspecified whether [facility] insulin use (HC) Use four times daily [...] time/day 100 Each 3 3 Active lancets (OneTouch Delica Plus Lancet) 33 gauge miscIndications:Ty pe [...] puffs by mouth once daily. 4 g 11 4 Active FreeStyle Brendan 3 Sensor for continuous blood glucose monitor (CGM)Indications:T ype 2 diabetes mellitus with diabetic neuropathy, with long-term current use of insulin (HC) To be used to read blood sugars, follow box builder directions. 6 Each 3 4 Active budesonide-formote roL (Symbicort) 160-4.5 mcg/actuation (160-4.5 mcg each actuation) inhalerIndications :Chronic obstructive pulmonary disease, unspecified COPD type (HC) Inhale 2 puffs by mouth 2 times daily. 10.2 g 11 4 Active carvediloL (Coreg) 6.25 mg tabletIndications: [...] need: 99 Months. 1 Each 4 Active cycloSPORINE (Restasis) 0.05 % ophthalmic emulsion Instill 1 drop into both eyes twice a day 180 Each 3 4 Active docusate (COLACE) 100 mg capsuleIndications :Chronic constipation Take 1 Capsule (100 mg) by mouth 2 times daily if needed for Constipation. 180 Capsule 3 4 Active apixaban (Eliquis) 5 mg tabletIndications: Paroxysmal atrial fibrillation (HC),Atrial flutter, unspecified type (HC) Take 1 Tablet (5 mg) by mouth two times daily. 180 Tablet 3 4 Active losartan (COZAAR) 100 mg tabletIndications: Essential hypertension Take 1 Tablet (100 mg) by mouth once daily. 90 Tablet 3 4 Active metFORMIN (GLUCOPHAGE) 500 mg tabletIndications: DM type 2, controlled, with complication (HC) Take 2 Tablets (1,000 mg) by mouth two times daily with meals. 360 Tablet 3 4 Active rosuvastatin (CRESTOR) 10 mg tabletIndications: Mixed hyperlipidemia Take 1 Tablet (10 mg) by mouth at bedtime. 90 Tablet 3 4 Active insulin glargine, U-100, (Lantus Solostar U-100 Insulin) 100 unit/mL (3 mL) penIndications:Typ e 2 diabetes mellitus with diabetic neuropathy, unspecified whether [facility] insulin use (HC) Inject 57 units subcutaneous before bedtime. 60 mL 3 4 Active amLODIPine (NORVASC) 10 mg tabletIndications: Essential hypertension Take 1 Tablet (10 mg) by mouth once daily. 90 Tablet 3 4 Active trimethoprim-sulfa methoxazole, 160-800 mg, (BACTRIM DS, SEPTRA DS) tabIndications:Acu te UTI Take 1 Tablet by mouth two times daily. 20 Tablet 4 Active insulin aspart, U-100, (NovoLOG Flexpen U-100 Insulin) 100 unit/mL (3 mL) penIndications:Typ e 2 diabetes mellitus with diabetic neuropathy, with long-term current use of insulin (HC) INJECT 30 - 35 UNITS SUBCUTANEOUSLY THREE TIMES DAILY BEFORE MEALS. TOTAL DAILY DOSE OF 100 UNITS. 90 mL 4 Active pramipexole (MIRAPEX) 0.25 mg tabletIndications: Foot cramps Take 1/2 to 2 tablets (0.125-0.5 mg) by mouth at bedtime. 180 Tablet 3 4 Active FLUoxetine (PROZAC) 20 mg capsuleIndications :Anxiety Take 1 Capsule (20 mg) by mouth once daily in the morning. 90 Capsule 4 Active hydrOXYzine HCL (ATARAX) 25 mg tabletIndications: Anxiety Take 1 Tablet (25 mg) by mouth every 6 hours if needed for Anxiety. 25 Tablet 5 4 Active furosemide (LASIX) 40 mg tabletIndications: Bilateral lower extremity edema Take 1 Tablet (40 mg) by mouth once daily in the morning. 90 Tablet 3 4 Active nitrofurantoin macrocrystals/mono hydrate (MACROBID) 100 mg capsuleIndications :Dysuria Take 1 Capsule (100 mg) by mouth two times daily for 5 days. 10 Capsule 4 12/09/19 24 Active continuous glucose monitor SENSOR KIT (FreeStyle Brendan 2 Sensor)Indications :Type 2 diabetes mellitus with diabetic neuropathy, with long-term current use of insulin (HC) As directed. Change every 14 days 6 Each 3 4 06/27/19 24 Discontinue d(Duplicate therapy (E-cancel not sent)) furosemide (LASIX) 40 mg tabletIndications: Bilateral lower extremity edema Take 1 Tablet (40 mg) by mouth two times daily. 90 Tablet 3 4 11/11/19 24 Discontinue d(Reorder (E-cancel not sent)) FLUoxetine (PROZAC) 10 mg capsuleIndications :Anxiety Take 1 Capsule (10 mg) by mouth once daily in the morning. 30 Capsule 4 11/11/19 24 Discontinue d(*Medicati on adjustment) hydrOXYzine HCL (ATARAX) 25 mg tabletIndications: Anxiety Take 1 Tablet (25 mg) by mouth every 6 hours if needed for Anxiety. Please mail to patient 25 Tablet 5 4 11/11/19 24 Discontinue d(Reorder (E-cancel not sent)) Active Problems Problem Noted Date Diagnosed Date Depression, recurrent 10/10/2023 Ulcer of lower extremity, un specified laterality, unspecified ulcer stage 02/16/2023 Chronic venous hypertension (idiopathic) with ulcer and inflammation of bilateral lower extremity 02/16/2023 Unspecified inflammatory spondylopathy, cervical region 01/22/2020 Chronic insomnia 12/25/2019 LUCIEN 10/05/2006 AHI/RDI:13 (70 in REM sleep) 10/24 ASHD (arteriosclerotic heart disease) 09/20/2017 Paroxysmal atrial fibrillation 09/20/2017 Active advance directive 07/04/2017 Overview (07/04/2017): See scan from 02/03/17. Osteopenia 02/16/2017 Abnormal stress test 02/10/2017 Overview (02/10/2017): -Stress Myoview 01/18/2017 Small area of moderate [...] depre ssed mood 10/03/2013 Atrial flutter 09/02/2013 Overview (03/15/2014): S/p cavotricuspid isthmus flutter ablation by Dr [...] deficit disorder) 08/12/2010 08/12/2010 Unspecified sleep apnea 01/06/2007 03/0 09/2012 Lumbago 06/16/2006 09/09/2021 DECONDITIONING SYNDROME 06/16/200601/15 Chronic airway obstruction, not elsewhere classified 03/17/2006 02/10/2017 Overview (09/27/2007): Severe emphysema Depressive disorder, not elsewhere classified 03/17/19 07 06/30/2011 Type II or unspecified type diabetes mellitus without mention of complication, not stated as uncontrolled 11/20/2003 08/07/2014 Encounters Date Type Department Care Team Description 12/04/2023 11:40 AM CDT Telemedicine [facility] [address] [place] [phone] Danii Callejas PA UTI 12/04/2023 Travel 12/01/2023 11:13 AM CDT - 12/01/2023 11:59 PM CDT Hospital Encounter [address] [address] Siddhartha Ho, DO Centrilobular emphysema (HC) 12/01/2023 Travel 11/29/2023 11:07 AM CDT - 11/29/2023 11:59 PM CDT Hospital Encounter [address] [address] Siddhartha Ho, DO Centrilobular emphysema (HC) 11/29/2023 Travel 11/24/2023 10:59 AM CDT - 11/24/2023 11:59 PM CDT Hospital Encounter [address] [address] Siddhartha Ho, DO Centrilobular emphysema (HC) 11/24/2023 Travel 11/17/2023 11:10 AM CDT - 11/17/2023 11:59 PM CDT Hospital Encounter [address] [address] Siddhartha Ho, DO Centrilobular emphysema (HC) 11/17/2023 Travel 11/15/2023 11:03 AM CDT - 11/15/2023 11:59 PM CDT Hospital Encounter [address] [address] Siddhartha Ho, DO Centrilobular emphysema (HC) 11/14/2023 11:55 AM CDT - 11/14/2023 11:59 PM CDT Hospital Encounter [facility] [address] [place] [address] Siddhartha Ho DO Centrilobular emphysema (HC) 11/14/2023 Travel 11/11/2023 3:00 PM CDT Office Visit [facility] [address] [facility] [place] [address] Karen Ibarra PA Medication Management 11/11/2023 Travel 11/09/2023 Travel 11/02/2023 Travel 10/21/2023 7:20 AM CDT Office Visit [facility] [address] [place] [address] Sylvia Raya PA Leg Swelling 10/21/2023 Travel 10/12/2023 Telephone [facility] [address] [place] [address] Siddhartha Ho DO Results (Overnight oximetry results, On Oxygen @2LPM, with CPAP, 10/11/23) 10/12/2023 Orders Only [facility] [address] [place] [address] Siddhartha Ho, 1 scan: (1-Ord) Overnight oximetry results, On Oxygen @2LPM, with CPAP, 10/11/23 10/10/2023 1:20 PM CDT Office Visit [facility] [address] [place] [address] Karen Ibarra PA Medicare ANNUAL (subsequent) Visit (73 years old); Breathing Problem (SOB, without activity. Unable to sleep laying down); Follow Up (Regarding anxiety) 10/10/2023 Travel 10/08/2023 Travel 10/06/2023 Orders Only [facility] Scanner 1 scan: (1-Ord) UNKNOWN FACILITY, EVENT MONITOR, 10/06/2023 10/03/2023 Telephone [facility] [address] [place] [address] Karol Pnito, PharmD Pharmacist Medication Management (Shortness of breath questions) 09/26/2023 Telephone [facility] [address] [place] [phone] Siddhartha Ho, DO Appointment Request 09/20/[address] [facility] [address] [place] [address] Karen Ibarra PA Refill Request (Pramipexole) 09/20/2023 Telephone [facility] [address] [place] [phone] uRy Jacobson MD Concerns 09/16/2023 1:00 PM CDT Ancillary Procedure [facility] [address] [place] [address] 09/16/2023 Travel 09/14/2023 Travel 09/12/[address] [facility] [address] [place] [address] Lester Morris MD Refill Request (Novolog Flexpen U-100 Insulin) 09/10/2023 Travel 09/09/2023 2:35 PM CDT Office Visit [facility] [address] [facility] [place] [address] Bri Melton, Wound Check (week Follow up ) 09/09/2023 Travel 09/07/2023 Orders Only [facility] Scanner 1 scan: (1-Ord) LIN, XR CHEST 1V PORTABLE, 09/07/2023 09/06/2023 10:50 AM CDT Office Visit [facility] [address] [facility] [place] [address] Karen Ibarra PA Breathing Problem; Urinary Problem (blood in urine); Leg Swelling 09/06/2023 Travel 09/05/2023 3:[address] [facility] [address] [place] [address] Lester Morris MD Telehealth 09/05/2023 Telephone [facility] [address] [place] [address] Lester Morris MD Prior Authorization (FreeStyle Brendan 3 Sensor for continuous blood glucose monitor (CGM) Approved 09/06/23-09/05/26) from Last 3 Months Immunizations Name Administration Dates Next Due COVID-19 VACCINE SPIKEVAX (M ODERNA 50MCG/0.5ML) 12YO+ PFS 05/16/2023 COVID-19 vaccine (Moderna 100mcg/0.5mL) PF, MDV [...] PHQ-2 Answer Date Recorded PHQ-2 TOTAL SCORE 2 11/14/2023 Social Connections Answer Date Recorded Frequency of Communication with Friends and Fami ly 0 08/03/2023 Financial Resource Strain Answer Date R ecorded Difficulty of Paying Living Expenses 3 08/03/2023 Difficulty of Paying Living Expenses Not on file 08/03/2023 Food Insecurity Answer Date Recorded Do you worry your food will run out before you are able to buy more? 1 08/03/2023 Transportation Needs Answer Date Record ed Lack of Transportation (Medical) 1 08/03/2023 Housing Stability Answer Date Recorded What is your housing situation today? 1 08/03/2023 Sex and Gender Information Value Date Recorded Sex Assigned at Male 09/26/2019 6:55 PM CDT Gender Identity Male 09/26/2019 6:55 PM CDT Sexual Orientation Straight 09/26/2019 6: 55 PM CDT Obstetrics History Last Filed Vital Signs Vital Sign Reading Time Taken Comments Blood Pressure 148/58 12/01/2023 11:15 AM CDT Pulse 87 12/01/2023 11:15 AM CDT Temperature 36.6 ??C (97.9 ??F) 09/06/2023 11:04 AM C DT Respiratory Rate 20 12/01/2023 11:15 AM CDT Oxygen Saturation 94% 12/01/2023 11:15 AM CDT Inhaled Oxygen Concentration - - Weight 112.3 kg (247 lb 8 oz) 12/01/2023 11:15 A M CDT Height 172 cm (5' 7.72) 12/01/2023 11:15 AM CDT Body Mass Index 37.95 12/01/2023 11:15 AM CDT Plan of Treatment Upcoming Encounters Date Type Department Care Team (Late st Contact Info) Description 12/08/2023 11:15 AM CDT Appointment [address] [address] 12/13/2023 11:15 AM CDT Appointment [address] [address] 12/15/2023 11:15 AM CDT Appointment [address] [address] 12/20/2023 11:15 AM I&C TECHNICIAN Appointment [address] [address] 12/22/2023 11:15 AM I&C TECHNICIAN Appointment [address] [address] 12/23/2023 3:20 PM I&C TECHNICIAN Office Visit [address] [address] Karen Ibarra PA [address] [place] [address] 12/27/2023 11:15 AM I&C TECHNICIAN Appointment [address] [address] 12/29/2023 11:15 AM I&C TECHNICIAN Appointment [address] [address] 01/03/2024 11:15 AM I&C TECHNICIAN Appointment [address] [address] 01/05/2024 11:15 AM I&C TECHNICIAN Appointment [address] [address] 01/10/2024 11:15 AM I&C TECHNICIAN Appointment [address] [address] 01/13/2024 3:00 PM I&C TECHNICIAN Telemedicine [facility] [address] [place] [address] Pravin Coley, [facility] [address] [place] [address] 01/17/2024 11:15 AM I&C TECHNICIAN Appointment [address] [address] 01/19/2024 1:30 PM I&C TECHNICIAN Office Visit [facility] [address] [place] [address] Ildefonso Henriquez MD [address] [place] [address] Health Maintenance Due Date Last Done Comments Pneumococcal series for age 65+ (1 of 2 - PCV) 01/03/1958 Tdap 01/03/1963 Tetanus booster 1972 Zoster (shingles) series for age 50+ (1 of 2) 01/03/2002 Influenza for age 65+ 10/16/2023 11/08/2022, 022 Fecal testing non-DNA (FIT,FOBT,iFOBT) for age 45-75 05/16/2024 05/17/2023, 10/29/2021, 08/19/2018, Additional history exists BMI (ht and wt on same day) for age 18+ 10/09/2024 10/10/2023, 07/14/2023, 06/01/2023, Additional history exists Medicare Wellness for age 65+ 10/10/2024, 09/08/2022, 09/09/2021, Additional history exists Depression screening for age 12+ 11/16/2024 11/17/2023, 11/15/2023, 11/14/2023, Additional history exists Lipids for age 45-75 05/15/2028 05/16/2023, 05/25/2022, 10/28/2021, Additional history exists Hepatitis C screening for ag e 18-79 Completed 04/08/2017 AAA screening age 65-74 Completed 10/15/2022 COVID-19 vaccine series Completed 11/07/19, 05/16/2023, 11/12/2022, Additional history exists Goals Goal Patient Goal Type Associated Problems Recent Progress Patient-Stated? Author BLOOD PRESSURE - MAINTAINS BP less than 140/90 Blood Pressure No Hailee Castro MD Procedures Procedure Name Priority Date/Time Associated Diagnosis Comments COMPLETE PFT SPIROMETRY LUNG VOL DIFFUSION Routine 11/14/2023 12:00 PM CDT Centrilobular emphysema (HC) HEMOGLOBIN Today 11/02/2023 1:08 PM CDT AEROBIC BACTERIAL CULTURE, STAIN Routine 10/21/2023 7:36 AM CDT Cellulitis of left lower extremity AMB CONSULT TO HOME OXYGEN AND DME Routine 10/11/2023 Centrilobular emphysema (HC) PSA TOTAL SCREEN Routine 10/10/2023 2:27 PM CDT Prostate cancer screening HEMOGLOBIN A1C MONITORING (POCT) Routine 10/10/2023 2:27 PM CDT Type 2 diabetes mellitus with diabetic neuropathy, with long-term current use of insulin (HC) SCAN-EVENT MONITOR 10/06/2023 12 :00 AM CDT ECHO TTE COMPLETE WO CONTRAST VISHAL 09/16/2023 12:47 PM CDT Bilateral lower extremity edema SCAN-RADIOLOGY REPORT 09/07/2023 12:00 AM CDT URINE CULTURE Add On 09/06/2023 11:02 AM CDT Acute UTI URINALYSIS MICROSCOPIC Routine 09/06/2023 11:02 AM CDT Hematuria, unspecified type UA W/ SEDIMENT EXAM REFLEXED PER CRITERIA Routine 09/06/2023 11:02 AM CDT Hematuria, unspecified type OCCULT BLOOD IFOBT STOOL Routine 05/17/2023 12:24 PM CDT Screening for colon cancer LIPID PANEL W REFLEX MEASURED LDL Routine 05/16/2023 3:27 PM CDT Mixed hyperlipidemia US ABD AORTA SCREENING Routine 10/15/2022 9:54 AM CDT Encounter for abdominal aortic aneurysm (AAA) screening ANTI HCV Routine 04/08/2017 3:48 PM I&C TECHNICIAN Encounter for hepatitis C screening test for low risk patient from Last 3 Months or Most Recently Relevant to Health Maintenance Results * COMPLETE PFT SPIROMETRY LUNG VOL DIFFUSION (11/14/2023 12:00 PM CDT) Narrative [facility] - 11/14/2023 12:00 PM CDT Siddhartha Ho, DO ? 11/15/2023 ??7:28 AM RESULTS: INTERPRETATION: Moderate airflow obstruction is present There is hyperinflation Mild reduction in DLCO due to pulmonary parenchymal or pulmonary vascular disease. PFT classifies physiology, correlate clinically for diagnosis and therapy. Reference values: GLI (Global Lung Function Initiative) reference equations used for spirometry, lung volumes, and diffusion. Defining normal range: Lower limit of normal/LLN = 5th percentile Upper limit of normal/ULN= 95th percentile 90% of measures are between +1.64 and -1.64 Severity of physiologic impairment: Z score (how many standard deviations a subject is deviated from its reference value) used for all measures Mild -1.65 to -2.5 Moderate -2.5 to -4 Severe ??<4.1 Bronchodilator response: > 10% of predicted value in FEV1 or FVC Airflow obstruction: FEV1/FVC less than 5th percentile For COPD: GOLD guidelines recommend an FEV1/FVC ratio of <0.7 to define obstruction. Veena Ho DO [facility] Siddhartha Ho DO PFT ORD Performing Organization Address City/[facility]/ZIP Co de Phone Number [facility] [place], [place] * (ABNORMAL) HEMOGLOBIN (11/02/2023 1:08 PM CDT) HEMOGLOBIN 12.4(L) 13.5 - 17.5 g/dL 11/02/2023 1:10 PM CDT [facility] MCV 88 80 - 100 fL 11/02/2023 1:10 PM CDT [facility] Blood BLOOD SPECIMEN / Unknown Venipuncture / Unknown 11/02/2023 1:08 PM CDT 11/02/2023 1:08 PM CDT Siddhartha Ho DO HEMATOLOGY [facility] [address] [place] [address], * (ABNORMAL) AEROBIC BACTERIAL CULTURE, STAIN (10/21/2023 7:36 AM CDT) CULTURE RESULT(A) 10/24/2023 2:10 PM CDT [facility] CULTURE 1+ Mixed shane present 10/24/2023 2:10 PM CDT [facility] GRAM STAIN No PMNs 10/24/2023 2:10 PM CDT [facility] GRAM STAIN No RBCs 10/24/2023 2:10 PM CDT [facility] GRAM STAIN No Epithelial cells 10/24/2023 2:10 PM CDT [facility] GRAM STAIN No organisms seen 10/24/2023 2:10 PM CDT [facility] Other (Other) Non-Blood / Unknown 10/21/2023 7:36 AM CDT 10/21/2023 8:06 AM CDT Narrative [facility] - 10/24/2023 2:10 PM CDT Mixed shane, No Staphylococcus aureus, beta- Streptococcus, Streptococcus pneumoniae, or Pseudomonas aeruginosa. Sylvia ESQUIVEL MICROBIOLOGY [facility] [address] [place] [address], * AMB CONSULT TO HOME OXYGEN AND DME (10/11/2023) Siddhartha Ho DO AMB REFERRAL/CONSU LT ORD * (ABNORMAL) HEMOGLOBIN A1C MONITORING (POCT) (10/10/2023 2:27 PM CDT) HEMOGLOBIN A1C MONITORING (POCT) 7.2(H) <=6.4 % 10/10/2023 2:37 PM CDT [facility] Blood BLOOD SPECIMEN / Unknown Butterfly / Unknown 10/10/2023 2:27 PM CDT 10/10/2023 2:27 PM CDT Narrative [facility] - 10/10/2023 2:37 PM CDT ? (<=6.9%) ? Indicates good control ? (7.0% to 7.9%) ? Indicates fair control ? (>=8.0%) ? Indicates poor control ?? NOTE: ??These thresholds are guidelines and ?individual targets may vary. Falsely low levels may be seen with: Recent Transfusion, Recent Significant Blood Loss, Hemolytic Diseases, or Falsely elevated levels may be seen with: Untreated Anemias, Splenectomy ? Karen ESQUIVEL CHEMISTRY Performing Organization Address City/[facility]/ZIP Co de Phone Number [facility] [address] [place] [address], [place] [phone] * PSA TOTAL SCREEN (10/10/2023 2:27 PM CDT) [facility] PSA TOTAL (SCREEN) 2.46 <4.00 ng/mL 10/10/2023 11:47 PM CDT [facility] Blood BLOOD SPECIMEN / Unknown Butterfly / Unknown 10/10/2023 2:27 PM CDT 10/10/2023 2:27 PM CDT Narrative [facility] - 10/10/2023 11:47 PM CDT The test method changed on 08/10/2022. If this test has been used for serial monitoring, rebaselining is recommended. Rebaselining consists of 2 measurements, collected 3-6 weeks apart. The Aimee Elecsys total PSA assay is an electrochemiluminescence immunoassay ECLIA performed on the Aimee Ava e immunoassay analyzers. Values obtained with different assay methods may be different and cannot be used interchangeably. Karen ESQUIVEL LABORATORY Performing Organization Address [facility]/ZIP Co de Phone Number [facility] [address] [place] [address], [place] * SCAN-EVENT MONITOR (10/06/2023 12:00 AM CDT) Scanner OTHER * ECHO TTE COMPLETE WO CONTRAST (09/16/2023 12:47 PM CDT) AORTIC VALVE MEAN PG 17 mmHg LVEDD 5.0 cm EJECTION FRACTION 65 - 70% Anatomical Region Laterality Modality Ultrasound 09/16/2023 11:4 6 AM CDT Narrative 09/16/2023 1:44 PM CDT ECHOCARDIOGRAM JON TRISTAN ?Accession#: ?? [id number] : ?1950 73 years Study Date: ?? 09/16/2023 11:46:20 AM Gender: M ? BP: ? 125/69 mmHg Height: 170.18 cm ? BSA: ?2.27 m? ? ? Weight: 118.84 kg ? Tech: ? JCP ?Referring MD: BRI MELTON Site: ? [facility] Reading Location: MOBILE - OP Patient Location: Procedure: 2D, Color Doppler and Spectral Doppler. Indication for study: Edema Cardiac Rhythm: Normal sinus.Study quality: Technically limited. Imaging limitations: This study was subject to imaging limitations due to patient short of breath laying down and needing to take multiple imaging breaks and a prominent lung artifact. Final Impressions: 1. Technically limited exam. 2. Normal LV size, mildly increased wall thickness, normal global systolic function with an estimated EF of 65 - 70%. 3. Right ventricular cavity size is normal, global systolic RV function is normal. 4. Normal left atrium size. 5. The aortic valve is calcified, mild stenosis and no regurgitation. The aortic valve peak velocity is 2.5 m/s, the peak gradient is 25 mmHg, and the mean gradient is 17 mmHg. The aortic valve area is 2.48 cm? ? ? with a dimensionless index of 0.60. The stroke volume index is 53.6 ml/m? ? ?. 6. The mitral valve is sclerotic, mild mitral regurgitation. 7. Tricuspid valve is normal. 8. No pericardial effusion. Chamber Sizes and Function Normal left ventricular size, mildly increased wall thickness, normal global systolic function with an estimated EF of 65 - 70%. Left atrial size is normal. Left atrial pressure is normal. Right ventricular cavity size is normal, global systolic RV function is normal. RV wall thickness is normal. The right atrium is normal. The pulmonary artery is of normal size and origin. The sinus of Valsalva is not well visualized. The ascending aorta is normal sized. Valves, RV Pressures and Diastolic Function The aortic valve is calcified, mild stenosis and no regurgitation. The mitral valve is sclerotic, mild mitral regurgitation. Indeterminate pattern of LV diastolic filling. The tricuspid valve is normal in structure. Tricuspid regurgitation is trace regurgitation. The pulmonic valve is not well visualized. No pulmonary regurgitation. Masses, Effusion, Shunts There is no pericardial effusion. There is a significant pericardial fat pad present. The inferior vena cava is normal sized, respiratory size variation greater than 50%. No left to right shunting was detected by limited color flow Doppler interrogation of the interatrial septum. MEASUREMENTS AND CALCULATIONS 2-D Measurements and LV Function: LVID (d) 5.0 cm LV FS% (2D) ?? 22 % LVID (s) 3.9 cm LVOT diameter 2.3 cm IVS (d) ??1.2 cm HR ?90 bpm LVPW (d) 0.8 cm LA Vol index ??14 ml/m2 Asc Ao ?? 3.2 cm Diastology: Mitral ?Tissue Doppler E Peak 1.2 m/s ??e', Septum ? 0.08 m/s A Peak 1.1 m/s ??e', Lateral ?0.11 m/s E/A ?1.1 ?E/e' Average ?? 13.57 DT ? 198 msec Aortic Valve: Vmax ? 2.5 m/s ??TAB (V) ?? 2.28 cm? ? ? VTI ?0.49 m ?? TAB (I) ?? 2.48 cm? ? ? LVOT V max 1.4 m/s ??Max PG ?25 mmHg LVOT VTI ?? 0.29 m ?? Mean PG ?? 17 mmHg SV ? 121 ml ?? Dim Index 0.60 SV index ?? 54 ml/m? ? ? CO ?10.9 l/min ?CI ?4.8 l/min/m? ? ? Mitral Valve: MVA ?3.8 cm? ? ? MV P 1/2 57 msec Tricuspid Valve and estimated PA pressures: TAPSE 2.6 cm . This study was interpreted by an [facility] accredited facility. ??Final ?? Procedure Note Windy Benitez, [facility] - 09/16/2023 ECHOCARDIOGRAM JON TRISTAN : 1950 73 years Study Date: 09/16/2023 11:46:20 AM Gender: M BP: 125/69 mmHg Height: 170.18 cm BSA: 2.27 m? ? ? Weight: 118.84 kg Tech: GAB Referring MD: BRI MELTON Site: [facility] Reading Location: MOBILE - OP Patient Location: Procedure: 2D, Color Doppler and Spectral Doppler. Indication for study: Edema Cardiac Rhythm: Normal sinus.Study quality: Technically limited. Imaging limitations: This study was subject to imaging limitations due topatient short of breath laying down and needing to take multiple imagingbreaks and a prominent lung artifact. Final Impressions: 1. Technically limited exam. 2. Normal LV size, mildly increased wall thickness, normal globalsystolic function with an estimated EF of 65 - 70%. 3. Right ventricular cavity size is normal, global systolic RV functionis normal. 4. Normal left atrium size. 5. The aortic valve is calcified, mild stenosis and no regurgitation. Theaortic valve peak velocity is 2.5 m/s, the peak gradient is 25 mmHg, andthe mean gradient is 17 mmHg. The aortic valve area is 2.48 cm? ? ? with adimensionless index of 0.60. The stroke volume index is 53.6 ml/m? ? ?. 6. The mitral valve is sclerotic, mild mitral regurgitation. 7. Tricuspid valve is normal. 8. No pericardial effusion. Chamber Sizes and Function Normal left ventricular size, mildly increased wall thickness, normalglobal systolic function with an estimated EF of 65 - 70%. Left atrialsize is normal. Left atrial pressure is normal. Right ventricular cavitysize is normal, global systolic RV function is normal. RV wall thicknessis normal. The right atrium is normal. The pulmonary artery is of normalsize and origin. The sinus of Valsalva is not well visualized. Theascending aorta is normal sized. Valves, RV Pressures and Diastolic Function The aortic valve is calcified, mild stenosis and no regurgitation. Themitral valve is sclerotic, mild mitral regurgitation. Indeterminatepattern of LV diastolic filling. The tricuspid valve is normal instructure. Tricuspid regurgitation is trace regurgitation. The pulmonicvalve is not well visualized. No pulmonary regurgitation. Masses, Effusion, Shunts There is no pericardial effusion. There is a significant pericardial fatpad present. The inferior vena cava is normal sized, respiratory sizevariation greater than 50%. No left to right shunting was detected bylimited color flow Doppler interrogation of the interatrial septum. MEASUREMENTS AND CALCULATIONS 2-D Measurements and LV Function: LVID (d) 5.0 cm LV FS% (2D) 22 % LVID (s) 3.9 cm LVOT diameter 2.3 cm IVS (d) 1.2 cm HR 90 bpm LVPW (d) 0.8 cm LA Vol index 14 ml/m2 Asc Ao 3.2 cm Diastology: Mitral Tissue Doppler E Peak 1.2 m/s e', Septum 0.08 m/s A Peak 1.1 m/s e', Lateral 0.11 m/s E/A 1.1 E/e' Average 13.57 DT 198 msec Aortic Valve: Vmax 2.5 m/s TAB (V) 2.28 cm? ? ? VTI 0.49 m TAB (I) 2.48 cm? ? ? LVOT V max 1.4 m/s Max PG 25 mmHg LVOT VTI 0.29 m Mean PG 17 mmHg SV 121 ml Dim Index 0.60 SV index 54 ml/m? ? ? CO 10.9 l/min CI 4.8 l/min/m? ? ? Mitral Valve: MVA 3.8 cm? ? ? MV P 1/2 57 msec Tricuspid Valve and estimated PA pressures: TAPSE 2.6 cm . This study was interpreted by an [facility] accredited facility. Final Bri Melton DO ECHO ORD * SCAN-RADIOLOGY REPORT (09/07/2023 12:00 AM CDT) Anatomical Region Laterality Modality Other Scanner OTHER * (ABNORMAL) URINALYSIS MICROSCOPIC (09/06/2023 11:02 AM CDT) RBC >100(A) 0-2, None Seen /HPF 09/06/2023 11:07 AM CDT [facility] WBC 11-25(A) 0-2, 3-5, None Seen /HPF 09/06/2023 11:07 AM CDT [facility] BACTERIA Few None Seen, Rare, Few Bacteria/H PF 09/06/2023 11:07 AM CDT [facility] EPITHELIAL CELLS Few None Seen, Few Epi/HPF 09/06/2023 11:07 AM CDT [facility] Urine URINE SPECIMEN / Unknown Non-Blood / Unknown 09/06/2023 11:02 AM CDT 09/06/2023 11:02 AM CDT Karen ESQUIVEL URINE [facility] [address] [place] [address], * URINE CULTURE (09/06/2023 11:02 AM CDT) CULTURE <10,000 CFU/mL multiple organisms 09/08/2023 12:14 PM CDT [facility] Urine URINE SPECIMEN / Unknown Non-Blood / Unknown 09/06/2023 11:02 AM CDT 09/06/2023 11:02 AM CDT Karen ESQUIVEL MICROBIOLOGY [facility] [address] [place] [address], [place] * (ABNORMAL) UA W/ SEDIMENT EXAM REFLEXED PER CRITERIA (09/06/2023 11:02 AM CDT) COLOR Yellow Yellow Color 09/06/2023 11:07 AM CDT [facility] CLARITY Cloudy(A) Clear Clarity 09/06/2023 11:07 AM CDT [facility] SPECIFIC GRAVITY,URINE 1.020 1.010, 1.015, 1.020, 1.025 09/06/2023 11:07 AM CDT [facility] PH,URINE 7.0 6.0, 7.0, 8.0, 5.5, 6.5, 7.5, 8.5 09/06/2023 11:07 AM CDT [facility] UROBILINOGEN, QUALITATIVE Normal Normal EU/dl 09/06/2023 11:07 AM CDT [facility] PROTEIN, URINE 100(A) Negative mg/dL 09/06/2023 11:07 AM CDT [facility] GLUCOSE, URINE Negative Negative mg/dL 09/06/2023 11:07 AM CDT [facility] KETONES,URINE Negative Negative mg/dL 09/06/2023 11:07 AM CDT [facility] BILIRUBIN,URI NE Negative Negative 09/06/2023 11:07 AM CDT [facility] OCCULT BLOOD,URINE Large(A) Negative 09/06/2023 11:07 AM CDT [facility] NITRITE Negative Negative 09/06/2023 11:07 AM CDT [facility] LEUKOCYTE ESTERASE Small(A) Negative 09/06/2023 11:07 AM CDT [facility] Urine URINE SPECIMEN / Unknown Non-Blood / Unknown 09/06/2023 11:02 AM CDT 09/06/2023 11:02 AM CDT Karen ESQUIVEL URINE [facility] [address] [place] [address], [place] [phone] * OCCULT BLOOD IFOBT STOOL (05/17/2023 12:24 PM CDT) STOOL BLOOD ,IFOBT Negative Negative 05/27/2023 7:28 AM CDT [facility] Stool STOOL SPECIMEN / Unknown Non-Blood / Unknown 05/17/2023 12:24 PM CDT 05/24/2023 12:24 PM CDT Karen ESQUIVEL LABORATORY [facility] [address] [place] [address], [place] [phone] * (ABNORMAL) LIPID PANEL W REFLEX MEASURED LDL (05/16/2023 3:27 PM CDT) CHOLESTEROL,TOTAL 107 100 - 199 mg/dL 05/16/2023 9:24 PM CDT [facility] Comment: Cholesterol, Total Reference Ranges Desirable <200 mg/dL Borderline 200-239 mg/dL High >=240 mg/dL TRIGLYCERIDES 92 <150 mg/dL 05/16/2023 9:24 PM CDT [facility] HDL CHOLESTEROL 40(L) >40 mg/dL 9:24 PM CDT [facility] NON-HDL CHOLESTEROL 67 <145 mg/dl 05/16/2023 9:24 PM CDT [facility] CHOL/HDL RATIO 2.68 <4.50 05/16/2023 9:24 PM CDT [facility] LDL CHOLESTEROL 49 <=130 mg/dL 05/16/2023 9:24 PM CDT [facility] VLDL CHOLESTEROL 18 <=30 mg/dL 05/16/2023 9:24 PM CDT [facility] PROVIDER ORDERED STATUS RANDOM 05/16/2023 9:24 PM CDT [facility] Blood BLOOD SPECIMEN / Unknown Venipuncture / Unknown 05/16/2023 3:27 PM CDT 05/16/2023 3:28 PM CDT Karen ESQUIVEL CHEMISTRY [facility] [address] [place] [address], [place] * [place] ABD AORTA SCREENING (10/15/2022 [...] habitus. Dictated by Mirza Romero MD @ Oct 15 2022 10:59AM (Electronically Signed) Boo Pipe Koo MD [place] * ANTI HCV (04/08/2017 3:48 PM I&C TECHNICIAN) HEPATITIS C ANTIBODY Non-Reacti ve Non-Reacti ve 04/09/2017 4:26 PM I&C TECHNICIAN [facility] Blood BLOOD SPECIMEN / Unknown Butterfly / Unknown 04/08/2017 3:48 PM I&C TECHNICIAN 04/08/2017 3:48 PM I&C TECHNICIAN Narrative [facility] - 04/09/2017 4:26 PM I&C TECHNICIAN Antibodies to HCV not detected; does not exclude the possibility of exposure to HCV. Karen ESQUIVEL SEND OUTS [facility] [address] [place] [address], from Last 3 Months or Most Recently Relevant to Health Maintenance Advance Directives Documents on File Type Date Recorded Patient Field Installer Expl anation Healthcare Directive 02/03/2017 9:44 AM A Kwesi CEBALLOS, 01/21/2015 * Full Code (Latest Code [...] 1:23 PM 09/04/2013 12:34 PM Care Teams Environmental Air Specialist Relationship Specialty Start Date End Date Karen [place]bar[place] [place] [address] PCP - General Family Practice 06/09/10 Eve Yap, RN [address] [address] Registration Specialist - [facility] Registered Nurse 12/15/16 Monalisa Meza RN [address] [address] Registration Specialist - [facility] Registered Nurse 12/15/[address] [place] [phone] Equine Bre[employer] Medical Supply Technician 07/30/20 Jessica Espinoza RN [address] [address] Registration Specialist - [facility] Registered Nurse 12/05/20 Lester Morris MD [address] [facility] [address] [place] [address] Endocrinology 09/09/21 Siddhartha Ho DO [address] [address] Pulmonary Medicine 09/09/21 Karol Pinto, PharmD Pharmacist Medication Management Pharmacology 04/01/23 04/11/26
--- OUTSIDE RECORDS SUMMARY | 2023-12-06 18:26 | XMS_ITS | Clinical Summary ---
Author Organization [facility] Address [address] [address] Phone Care Team Providers Care Food And Beverage Manager Name Role Phone Unavailable Primary Care Provider Unavailabl e Allergies Active Allergy Reactions Criticality Noted Date Comments Lisinopril Cough 09/29/2018 Immunizations Name Administration Dates Next Due COVID-19 mRNA Vaccine (Moder na - 18+ Yrs) 06/17/2021,01/12/2021,05/01/2020, 0 21 Social History Tobacco Use Types Packs/Day Years Used Date Smoking Tobacco: Never Assessed Sex and Gender Information Value Date Recorded Sex Assigned at Not on file Legal Sex Male 7:46 PM CDT Gender Identity Not on file Sexual Orientation [...] 01/03/1971 TETANUS (Standing Order) 01/03/1971 Shingrix (Zoster recombinant) vaccine (Standing Order) (1 of 2) 01/03/2002 Pneumococcal Vaccine: 65+ yrs (Standing Order) (1 of 1 - PCV) 01/03/2017 COVID-19 Vaccine ( season) 2023 06/17/2021, 01/12/2021, 05/01/2020, Additional history exists Influenza Vaccine Seasonal (Standing Order) (#1) 2023 RSV Vaccination (60+ yrs) (Abrysvo/Arexvy) (1 - 1-dose 75+ series) 01/03/2027 HPV Vaccine (Standing Order) Aged Out No longer eligible based on patient's age to complete this topic Hepatitis B Vaccine (Standing Order) Aged Out No longer eligible based on patient's age to complete this topic
--- OUTSIDE RECORDS SUMMARY | 2023-12-06 18:26 | XMS_ITS | Clinical Summary ---
Author Organization [facility] Address [address] [facility] [place] [address] Care Team Providers Care Cutter Wet Machine Name Role Phone Karen Ibarra Marjorie Primary Care Provider [phone] Allergies Active Allergy Reactions Criticality Noted Date [...] obstructive pulmonary disease) Overview: Quit smoking 2002. [id number] years. PFTS 03/24 - FEV1- 1.08 (30%), [...] of Treatment Not on file Care Teams Cutter Wet Machine Relationship Specialty Start Date End Date Karen Ibarra PCP - General Physician Greaser Helper 10/28/17
[2023-12-06 18:55] LABS: Lactate Sepsis w/Reflex* 1.3 mmol/L (0.5-1.9)
[2023-12-06 18:56] LABS: Basophils Percent Auto 0.2 % (0.0-3.0); Eosinophils Percent Auto 2.4 % (0.0-7.0); Hematocrit 37.1 % (37.0-53.0); Hemoglobin* 11.8 gm/dL (13.5-17.5); Immature Granulocytes Pct Auto 0.2 %; Lymphocytes Percent Auto 10.2 % (20-44); Mean Corpuscular HGB Conc 32 gm/dL (32-36); Mean Corpuscular Hemoglobin 28 pg (26-34); Mean Corpuscular Volume 87 fL (80-100); Monocytes Percent Auto 7.3 % (0.0-11.0); Neutrophils Percent Auto 79.7 % (42.0-72.0); Platelet Count* 316 K/uL (140-440); RDW Coefficient of Variation % 13.5 % (11.5-15.5); Red Blood Count 4.25 m/uL (4.30-5.90); White Blood Count* 12.66 K/uL (4.50-11.00)
[2023-12-06 18:59] LABS: Slide Review Reflex No
[2023-12-06 19:10] LABS: Appearance Urine Clear (Clear); Bilirubin Urine Negative (Negative); Blood Urine 2+ (Negative); Color Urine Yellow (Yellow); Glucose Urine Negative (Negative); Ketones Urine Trace (Negative); Leukocyte Esterase Urine 3+ (Negative); Nitrite Urine Positive (Negative); Protein Urine 2+ (Negative); Urobilinogen Urine 0.2 (0.2-1.0); pH Urine 5.5 (5.0-8.5)
[2023-12-06 19:16] LABS: Chloride* 97 mmol/L (96-114); Potassium* 4.1 mmol/L (3.6-5.1); Sodium* 135 mmol/L (135-149)
[2023-12-06 19:19] LABS: Creatinine* 0.6 mg/dL (0.5-1.5); Est. Creatinine Clearance* 65.55; Estimated Glomerular Filt Rate 103 ml/min
[2023-12-06 19:20] LABS: Anion Gap 7 mEq/L (7-15); Blood Urea Nitrogen* 16 mg/dL (7-30); Calcium* 9.2 mg/dL (8.4-10.6); Carbon Dioxide* 31 mmol/L (20-32); Glucose* 91 mg/dL (60-115)
[2023-12-06 19:23] LABS: Bacteria Urine Few; Squamous Epithelial Cell Urine Few (None-Few)
[2023-12-06 19:36] LABS: Procalcitonin* 0.05 ng/mL (<0.50)
[2023-12-06 19:40] LABS: C Reactive Protein* 12.8 mg/dL (0.5-1.0)
[2023-12-06 20:22] LABS: Glucose, Point-of-Care* 75 mg/dl (60-115)
== END 2023-12-06 20:37 | disposition home or self-care (01) ==
PROVIDERS: Emergency Provider Emergency Medicine; PCP Physician Assistant Medical
DX: N48.1 Balanitis (principal); N39.0 Urinary tract infection, site not specified
CPT/HCPCS: 36415; 80048; 81001; 82947; 83605; 84145; 85025; 86140; 87086; 87186; 99283; 99284

== ENCOUNTER 2024-02-21 16:12 | Emergency (ER) | payer OTHER, SELFPAY ==
[2024-02-21 16:18] VITALS: BP 153/67; PULSE 84; RESP 18; TEMP 37; O2SAT 93; BMI 38.3
[2024-02-21 19:09] LABS: PCR FLU A Negative PCR FLU A (Negative); PCR FLU B Negative PCR FLU B (Negative); PCR RSV Negative PCR RSV (Negative); SARS PCR* Negative SARS-CoV-2 (Negative)
--- NOTE | 2024-02-21 19:32 | ED.GENADULT ---
HPI - General Adult General Time Seen by Provider: 19:32 Date Seen: 02/21/24 Chief complaint: Shortness of Breath/Dyspnea Stated complaint: SOB-on O2, upper resp issues Time Seen by Provider: 02/21/24 19:26 Source: patient and RN notes reviewed Mode of arrival: ambulatory Limitations: no limitations History of Present Illness HPI narrative: This 74yo male is coming in with concern of increasing shortness of breath with coughing, does have underlying COPD. He has had symptoms for about 1 week, thinks he got some upper respiratory symptoms. He has had no fevers. He does feel more fatigued. He is monitoring his pulse oximeter and is not noting any change in this. Cough has been nonproductive. He has had no nausea vomiting, no diarrhea, no abdominal symptoms. He has had absolutely no chest pain with this with his COPD, he is on chronic oxygen at 2 liters/minute. He has a remote smoking history but did smoke heavily when he did smoke. He has had no travel, known definite ill exposures he is in [address] [facility] apartments. He states about once a year he will usually get some prednisone and doxycycline, he feels this is what he needs. Patient is chronically anticoagulated with Eliquis, has been using his inhalers and respiratory medicines. He has a Sleep number bed, sleeps with the head of the bed elevated, this is at baseline. He has a new CPAP but has not gotten it set up and thus has not been using it. He states he has pitting edema which is chronic, states that he has not noted any increased swelling. Related Data Home Medications ?Medication ?Instructions ?Recorded ?Confirmed albuterol sulfate 90 mcg/actuation inhalation 03/09/22 07/08/22 aerosol inhaler amlodipine 10 mg tablet mg 03/09/22 07/08/22 apixaban 5 mg tablet (Eliquis) mg 03/09/22 07/08/22 atomoxetine 100 mg capsule mg PO 03/09/22 07/08/22 budesonide-formoterol HFA 160 inhalation 03/09/22 07/08/22 mcg-4.5 mcg/actuation aerosol inhaler (Symbicort) calcium 600 mg (as tab PO 03/09/22 07/08/22 carbonate)-vitamin D3 10 mcg (400 unit) tablet carvedilol 3.125 mg tablet mg 03/09/22 07/08/22 clotrimazole-betamethasone 1 applic topical 03/09/22 07/08/22 %-0.05 % topical cream docusate sodium 100 mg capsule mg PO 03/09/22 07/08/22 furosemide 40 mg tablet mg 03/09/22 07/08/22 insulin aspart U-100 100 unit/mL subcut 03/09/22 07/08/22 (3 mL) subcutaneous pen (Novolog FlexPen U-100 Insulin aspart) insulin glargine 100 unit/mL (3 unit subcut 03/09/22 07/08/22 mL) subcutaneous pen (Lantus Solostar U-100 Insulin) ipratropium 0.5 mg-albuterol 3 mg ml inhalation 03/09/22 07/08/22 (2.5 mg base)/3 mL nebulization soln losartan 100 mg tablet mg 03/09/22 07/08/22 metformin 500 mg tablet mg 03/09/22 07/08/22 propylene glycol 0.6 % eye drops drp 03/09/22 07/08/22 (Systane Complete) rosuvastatin 10 mg tablet mg 03/09/22 07/08/22 tiotropium bromide 2.5 inhalation 03/09/22 07/08/22 mcg/actuation mist for inhalation (Spiriva Respimat) sulfamethoxazole 800 1 tab PO BID 09/07/23 02/21/24 mg-trimethoprim 160 mg tablet Previous Rx's ?Medication ?Instructions ?Recorded clotrimazole 1 % topical ointment 1 applic topical BID #56.7 grams 12/06/23 doxycycline monohydrate 100 mg 100 mg PO BID #14 tabs 02/21/24 tablet prednisone 20 mg tablet 20 mg PO BID #10 tabs 02/21/24 Allergies Allergy/AdvReac Type Severity Reaction Status Date / Time lisinopril Allergy Mild Cough Verified 02/21/24 16:26 Review of Systems Status of ROS: Reports: 6 or more systems reviewed and unremarkable except as noted in History and below [facility] Social History Smoking Status: Former smoker Do you use any of these nicotine containing products: None Second hand tobacco smoke exposure: No How often do you have a drink containing alcohol: never AUDIT-C Alcohol total score: 0 Non-prescribed substance use: denies use Exam Const: Vital Signs, click to edit/add: Vital Signs - 24 hr 02/21/24 16:18 02/21/24 20:10 Temperature 98.6 F Pulse Rate [Right Pulse Oximeter] 84 73 Respiratory Rate 18 20 Blood Pressure [Ri ght Upper Arm] 153/67 H 143/64 H Pulse Oximetry 93 99 Oxygen Delivery Me thod Room Air Nasal Cannula Oxygen Flow Rate 2 This 74-year-old male is alert, interactive, no apparent distress. He is oxygenating well with a good waveform, 97%. He is not tachypneic, speech is normal, no hoarseness, able to speak in complete sentences. Pupils equal round reactive, sclera clear. Symmetrical facial function. Do not feeling neck masses, do not note any jugular venous distension. Breath sounds are distant but do not hear any wheezing or crackles. Heart sounds are distant but do not appreciate murmur, normal S1-S2. Abdomen is soft, nontender, nondistended. He has wrap on his right lower extremity. There is some mild pretibial edema bilaterally. Documenting provider has reviewed patient's vital signs: yes Course Course ED Course: Nursing staff had done the triple viral swab on arrival. He is actually negative for these 3 viruses. Reviewed with him that I would like to look at a portable chest x-ray. If the chest x-ray is looking clear and there is no concerning infiltrate or effusion, nothing to suggest pulmonary venous congestion, can probably just give him prednisone and antibiotics. Otherwise, may consider labs. He overall really looks quite well and seems to be stable. Certainly his increasing symptoms could be from a COPD exacerbation. Do want to consider such things as pneumonia, CHF as well. Reevaluation(s) Time of Reevaluation #1: 20:23 Reevaluation #1: Have reviewed with patient that his triple viral swab and chest x-ray are normal. There is no evidence of infiltrate or congestive heart failure. Presumably his coughing increased shortness of breath with out changes in his pulse oximeter are due to COPD exacerbation. He would like prednisone and doxycycline. We did discuss doing blood work but he does not feel it is necessary at this time. He declines 1st dose here, declines medicine from [facility]. He would like his medicines sent to [facility], will start tomorrow. This is likely reasonable, this patient overall seems stable. It is possible he does not need the doxycycline but sounds as if his COPD is significant. He does have a follow-up with his primary in clinic next week which will be perfect time for recheck. We did discuss if worsening or concerns in the interim, return to the ED. Vital Signs Vital signs: Initial Vital Signs Temperature 98.6 F 02/21/24 16:18 Temperature Source Temporal Artery Scan 02/21/24 16:18 Pulse Rate 84 02/21/24 16:18 Pulse Rhythm Regular 02/21/24 16:18 Pulse Strength 3+ Normal 02/21/24 16:18 Respiratory Rate 18 02/21/24 16:18 Blood Pressure 153/67 H 02/21/24 16:18 Blood Pressure Mean 95 02/21/24 16:18 Blood Pressure Position Sitting 02/21/24 16:18 Pulse Oximetry 93 02/21/24 16:18 Oxygen Delivery Method Room Air 02/21/24 16:18 Vital Signs Temperature 98.6 F 02/21/24 16:18 Pulse Rate 84 02/21/24 16:18 Respiratory Rate 18 02/21/24 16:18 Blood Pressure 153/67 H 02/21/24 16:18 Pulse Oximetry 93 02/21/24 16:18 Oxygen Delivery Method Room Air 02/21/24 16:18 Temperature 98.6 F 02/21/24 16:18 Pulse Rate 73 02/21/24 20:10 Respiratory Rate 20 02/21/24 20:10 Blood Pressure 143/64 H 02/21/24 20:10 Pulse Oximetry 99 02/21/24 20:10 Oxygen Delivery Method Nasal Cannula 02/21/24 20:10 Oxygen Flow Rate 2 02/21/24 20:10 Medical Decision Making Lab Data Lab results reviewed: Yes I reviewed the patient's lab results Labs: Lab Results 02/21/24 Range/Units 18:30 SARS-CoV-2 (PCR) Negative SARS-CoV-2 (Negative) Influenza Type A (PCR) Negative PCR FLU A (Negative) Influenza Type B (PCR) Negative PCR FLU B (Negative) RSV (PCR) Negative PCR RSV (Negative) Discharge Plan Discharge Clinical Impression: Acute exacerbation of chronic obstructive pulmonary disease Patient Disposition: Home, Self-Care Condition: Stable Instructions: COPD (Chronic Obstructive Pulmonary Disease) (ED) Additional Instructions: Start antibiotics and prednisone tomorrow. Recommend taking prednisone with food to help protect your stomach. Continue to watch her pulse oximeter, monitor symptoms. If your breathing is worsening, develops fever, have increased fluid buildup in your legs, feel you are worsening or have concerns, please seek re-evaluation. Otherwise follow up in clinic as planned for next week. Activity Level: Activity as Tolerated Prescriptions: New prednisone 20 mg tablet 20 mg PO BID Qty: 10 0RF doxycycline monohydrate 100 mg tablet 100 mg PO BID Qty: 14 0RF No Action sulfamethoxazole-trimethoprim 800-160 mg tablet 1 tab PO BID clotrimazole 1 % ointment 1 applic topical BID Qty: 56.7 0RF furosemide 40 mg tablet metformin 500 mg tablet ipratropium-albuterol 0.5 mg-3 mg(2.5 mg base)/3 mL solution for nebulization INHALATION carvedilol 3.125 mg tablet amlodipine 10 mg tablet clotrimazole-betamethasone 1-0.05 % cream TOPICAL docusate sodium 100 mg capsule PO albuterol sulfate 90 mcg/actuation HFA aerosol inhaler INHALATION losartan 100 mg tablet insulin aspart U-100 [Novolog FlexPen U-100 Insulin] 100 unit/mL (3 mL) insulin pen SUBCUT rosuvastatin 10 mg tablet atomoxetine 100 mg capsule PO calcium carbonate-vitamin D3 600 mg-10 mcg (400 unit) tablet PO budesonide-formoterol [Symbicort] 160-4.5 mcg/actuation HFA aerosol inhaler INHALATION insulin glargine [Lantus Solostar U-100 Insulin] 100 unit/mL (3 mL) insulin pen SUBCUT Systane Complete 0.6 % drops Patient Comments: INSTILL ONE DROP INTO BOTH EYES NEEDED Spiriva Respimat 2.5 mcg/actuation mist INHALATION Eliquis 5 mg tablet Follow Up/Referrals: Karen Ibarra PA-C [Primary Care Provider] - Stand Alone Forms: [facility] Info Instructions
--- NOTE | 2024-02-21 19:40 | CRLHL7_ITS ---
For Patients: As a result of the Cures Act, medical imaging exams and procedure reports are released immediately into your electronic medical record. You may view this report before your referring provider. If you have questions, please contact your health care provider. INDICATION: COPD. Cough. TECHNIQUE: Chest 1 view(s) COMPARISON: Chest radiograph dated 09/07/2023. FINDINGS: Heart size is upper limits of normal. Pulmonary vasculature is normal. No focal consolidation. No layering pleural effusion. No pneumothorax. No acute chest wall abnormality. IMPRESSION: No focal consolidation. Dictated by Camille Davila MD @ 02/21/2024 7:58:36 PM (Electronically Signed)
[2024-02-21 20:10] VITALS: BP 143/64; PULSE 73; RESP 20; O2SAT 99
--- OUTSIDE RECORDS SUMMARY | 2024-02-21 20:23 | XMS_ITS | Clinical Summary ---
Author Organization [facility] Address [place], [place] [address] Care Team Providers Care Instrumental Teacher Name Role Phone Karen Ibarra Primary Care Provider Eve Yap RN Unavailable Monalisa Meza RN Unavailable [phone] Unavailable [phone] Jessica Espinoza RN Unavailable [phone] Lester Morris MD Unavailable Siddhartha Ho DO Unavailable Karol Pinto PharmD Unavailable Allergies Active Allergy Reactions Criticality Noted Date Comments Lisinopril Cough 04/18/2009 Medications flash glucose scanning reader (FreeStyle Brendan 2 Dime Box) miscIndications:T ype 2 diabetes mellitus with diabetic neuropathy, with long-term current use of insulin (HC) As directed. 1 Each 1 12:07 PM CDT 07/12/19 21 Active oxygen-air delivery systems (HOME OXYGEN)Indication s:Chronic obstructive pulmonary disease, unspecified COPD type (HC) Oxygen for home use. Liters per minute: 2 L per nasal cannula with activity and bled into CPAP with sleep. Frequency of use: with activity and sleep. Length of need: 99 Months. 1 Device 08/12/19 21 Active lidocaine 5 % topical patchIndications: Type 2 diabetes mellitus with diabetic neuropathy, with long-term current use of insulin (HC) Apply to intact skin to cover most painful area for max 12hr per 24hr period. 30 Patch 5 2 9:14 AM CDT 04/25/19 22 Active nebulizers (Sidestream) misc Use with nebulizer as directed. 1 Each 2 9:54 AM CDT 08/22/19 22 Active carboxymethylcell ulose (Refresh Celluvisc) 1 % eye gel in dropperette Place 1 Drop into both eyes 4 times daily (or more). 30 Each 3 2 11:12 AM INSECTICIDE SPRAYER 09/23/19 22 Active cycloSPORINE (Restasis) 0.05 % ophthalmic emulsion Place 1 Drop into both eyes twice daily 12 hours apart. 180 Each 2 9:09 AM CDT 09/24/19 22 Active Systane Complete 0.6 % ophthalmic solution INSTILL ONE DROP INTO BOTH EYES NEEDED 02/25/19 23 Active Incontinence Pad, Liner, Disp padsIndications:U rinary incontinence, unspecified type Use the pads 3 times a day as needed. 96 Each 11 06/19/19 23 Active NebulizerIndicati ons:Chronic bronchitis, unspecified chronic bronchitis type (HC) Nebulizer, disposable neb kit x 4, reuseable neb kit x 1, mask x 1, filters x 1. Frequency of use: daily; Medication: albuterol Length of need: 99 months 1 Each 01/26/20 23 Active Blood-Glucose Meter (OneTouch Verio Flex meter)Indications :Type 2 diabetes mellitus with diabetic neuropathy, with long-term current use of insulin (HC) Test 1 times per day. 1 Each 3 10:56 AM INSECTICIDE SPRAYER 01/28/20 23 Active blood sugar diagnostic (OneTouch Verio test strips) stripIndications: Type 2 diabetes mellitus with diabetic neuropathy, with long-term current use of insulin (HC) Test 1 time/day 100 Each 3 4 10:06 AM CDT 01/28/20 23 Active lancets (groSolarTouch Delica Plus Lancet) 33 gauge miscIndications:T ype 2 diabetes mellitus with diabetic neuropathy, with long-term current use of insulin (HC) Test 1 time/day 100 Each 3 4 10:06 AM CDT 01/28/20 23 Active fluticasone (50 mcg per actuation) nasal solution (FLONASE)Indicati ons:Allergic rhinitis due to pollen, unspecified seasonality Inhale 2 Sprays to both nostrils once daily. 16 g 11 4 10:51 AM INSECTICIDE SPRAYER 04/01/19 24 Active propylene glycoL, PF, (Systane Complete PF) 0.6 % drop Instill one drop into both eyes for as needed purposes 30 mL 12 04/12/19 24 Active tiotropium bromide (Spiriva Respimat) 2.5 mcg/actuation mist for inhalationIndicat ions:Chronic obstructive pulmonary disease, unspecified COPD type (HC) Inhale 2 puffs by mouth once daily. 4 g 11 4 10:29 AM INSECTICIDE SPRAYER 04/14/19 24 Active FreeStyle Brendan 3 Sensor for continuous blood glucose monitor (CGM)Indications: Type 2 diabetes mellitus with diabetic neuropathy, with long-term current use of insulin (HC) To be used to read blood sugars, follow special makeup fx artist instructor directions. 6 Each 3 5 10:57 AM INSECTICIDE SPRAYER 04/26/19 24 Active budesonide-formot Luisana (Symbicort) 160-4.5 mcg/actuation (160-4.5 mcg each actuation) inhalerIndication s:Chronic obstructive pulmonary disease, unspecified COPD type (HC) Inhale 2 puffs by mouth 2 times daily. 10.2 g 11 4 10:29 AM INSECTICIDE SPRAYER 05/16/19 24 Active carvediloL (Coreg) 6.25 mg tabletIndications :Paroxysmal atrial fibrillation (HC),Tachycardia Take 1 Tablet (6.25 mg) by mouth two times daily with meals. 180 Tablet 3 4 4:28 PM INSECTICIDE SPRAYER 05/18/19 24 Active albuterol HFA (ProAir HFA) 90 mcg/actuation inhalerIndication s:Bronchitis Inhale 2 Puffs by mouth 4 times daily if needed for Shortness of Breath 1st choice. 17 g 10 4 11:44 AM INSECTICIDE SPRAYER 05/22/19 24 Active Vit B Comp & C-Vit E-FA-Roseanne-Zn (One-A-Day Women's 50 Plus) 0.4 mg tab Take 1 tablet by mouth once daily. 335 Tablet 4 4:28 PM INSECTICIDE SPRAYER 04/01/19 24 Active oxygen-air delivery systems (HOME OXYGEN)Indication s:Centrilobular emphysema (HC) Oxygen for home use. Liters per minute: 2 pulse w/ activity, 2 continuous w/activity and bled into CPAP w/ sleep per nasal cannula. Frequency of use: Continuous with portability.;. Length of need: 99 Months. 1 Each 11 07/15/19 24 Active cycloSPORINE (Restasis) 0.05 % ophthalmic emulsion Instill 1 drop into both eyes twice a day 180 Each 3 4 10:06 AM CDT 08/11/19 24 Active docusate (COLACE) 100 mg capsuleIndication s:Chronic constipation Take 1 Capsule (100 mg) by mouth 2 times daily if needed for Constipation. 180 Capsule 3 4 10:32 AM CDT 08/31/19 24 Active apixaban (Eliquis) 5 mg tabletIndications :Paroxysmal atrial fibrillation (HC),Atrial flutter, unspecified type (HC) Take 1 Tablet (5 mg) by mouth two times daily. 180 Tablet 3 4 11:44 AM INSECTICIDE SPRAYER 09/06/19 24 Active losartan (COZAAR) 100 mg tabletIndications :Essential hypertension Take 1 Tablet (100 mg) by mouth once daily. 90 Tablet 3 4 4:46 PM INSECTICIDE SPRAYER 09/06/19 24 Active metFORMIN (GLUCOPHAGE) 500 mg tabletIndications :DM type 2, controlled, with complication (HC) Take 2 Tablets (1,000 mg) by mouth two times daily with meals. 360 Tablet 3 5 10:57 AM INSECTICIDE SPRAYER 09/06/19 24 Active rosuvastatin (CRESTOR) 10 mg tabletIndications :Mixed hyperlipidemia Take 1 Tablet (10 mg) by mouth at bedtime. 90 Tablet 3 5 10:57 AM INSECTICIDE SPRAYER 09/06/19 24 Active insulin glargine, U-100, (Lantus Solostar U-100 Insulin) 100 unit/mL (3 mL) penIndications:Ty pe 2 diabetes mellitus with diabetic neuropathy, unspecified whether intermediate frame tender insulin use (HC) Inject 57 units subcutaneous before bedtime. 60 mL 3 4 11:12 AM INSECTICIDE SPRAYER 09/05/19 24 Active amLODIPine (NORVASC) 10 mg tabletIndications :Essential hypertension Take 1 Tablet (10 mg) by mouth once daily. 90 Tablet 3 4 11:44 AM INSECTICIDE SPRAYER 09/06/19 24 Active pramipexole (MIRAPEX) 0.25 mg tabletIndications :Foot cramps Take 1/2 to 2 tablets (0.125-0.5 mg) by mouth at bedtime. 180 Tablet 3 4 11:44 AM INSECTICIDE SPRAYER 10/10/19 24 Active hydrOXYzine HCL (ATARAX) 25 mg tabletIndications :Anxiety Take 1 Tablet (25 mg) by mouth every 6 hours if needed for Anxiety. 25 Tablet 5 4 11:44 AM INSECTICIDE SPRAYER 11/11/19 24 Active furosemide (LASIX) 40 mg tabletIndications :Bilateral lower extremity edema Take 1 Tablet (40 mg) by mouth once daily in the morning. 90 Tablet 3 5 10:57 AM INSECTICIDE SPRAYER 11/11/19 24 Active FLUoxetine (PROZAC) 20 mg capsuleIndication s:Anxiety Take 1 Capsule (20 mg) by mouth once daily in the morning. 30 Capsule 4 4:28 PM INSECTICIDE SPRAYER 12/10/19 24 Active nebulizer accessories kitIndications:CO PD, group B, by GOLD 2017 classification () For home use. Length of need: 99 Needs tubing and mouth piece 1 Kit 12/23/19 24 Active levoFLOXacin (LEVAQUIN) 250 mg tabletIndications :Acute UTI Take 1 Tablet (250 mg) by mouth once daily before a meal. 5 Tablet 12/23/19 24 Active cyclobenzaprine (FLEXERIL) 10 mg tabletIndications :Lumbar paraspinal muscle spasm Take 1 Tablet (10 mg) by mouth at bedtime if needed for Muscle Spasm. 90 Tablet 1 01/10/20 24 Active acetaminophen SR (8 Hour Pain Reliever) 650 mg Extended-Release tabletIndications :Chronic bilateral low back pain without sciatica Take 1 Tablet (650 mg) by mouth every 8 hours. 270 Tablet 2 4 4:28 PM INSECTICIDE SPRAYER 01/13/20 24 Active cyclobenzaprine (FLEXERIL) 10 mg tabletIndications :Chronic bilateral low back pain without sciatica Take 1 Tablet (10 mg) by mouth at bedtime. 90 Tablet 1 4 4:28 PM INSECTICIDE SPRAYER 01/13/20 24 Active insulin aspart, U-100, (NovoLOG Flexpen U-100 Insulin) 100 unit/mL (3 mL) penIndications:Ty pe 2 diabetes mellitus with diabetic neuropathy, with long-term current use of insulin (HC) INJECT 30 - 35 UNITS SUBCUTANEOUSLY THREE TIMES DAILY BEFORE MEALS. TOTAL DAILY DOSE OF 100 UNITS. 90 mL 01/16/20 24 Active albuterol-ipratro pium (DUONEB) (2.5-0.5 mg) in 3 mL NEBULIZATION solutionIndicatio ns:Chronic bronchitis, unspecified chronic bronchitis type (HC) Inhale 3 mL via a nebulizer every 6 hours if needed for shortness of breath. 720 mL 11 4 4:28 PM INSECTICIDE SPRAYER 01/23/20 24 Active triamcinolone (ARISTOCORT; KENALOG) 0.1 % creamIndications: Skin irritation Apply topically to affected area(s) two times daily. 45 g 4 10:29 AM INSECTICIDE SPRAYER 01/27/20 24 Active clotrimazole-beta methasone 1%-0.05% creamIndications: Balanitis Apply topically to affected area(s) 2 times daily. 45 g 11 4 4:28 PM INSECTICIDE SPRAYER 01/27/20 24 Active CPAPIndications:O SA (obstructive sleep apnea) Resmed CPAP machine for home use at pressure 12 cmw with epr of 3, CPAP mask- mask of choice, fit to comfort one per 3 months 02/09/20 24 Active pen needle (BD Audelia 2nd Gen Pen Needle) 32 gauge x 5/32 (disposable insulin pen needle)Indication s:Controlled type 2 diabetes mellitus without complication, unspecified whether intermediate frame tender insulin use (HC) Use four times daily 400 Each 3 02/16/19 25 Active clotrimazole-beta methasone cream (LOTRISONE) 1-0.05 % creamIndications: Balanitis Apply topically to affected area(s) 2 times daily. 45 g 11 3 9:16 AM CDT 02/22/19 23 2023 Discontin ued(Reord er (E-cancel not sent)) triamcinolone (ARISTOCORT; KENALOG) 0.1 % creamIndications: Skin irritation Apply topically to affected area(s) three times daily. 45 g 4 11:10 AM INSECTICIDE SPRAYER 04/20/19 23 2023 Discontin ued(Reord er (E-cancel not sent)) pen needle (BD Audelia 2nd Gen Pen Needle) 32 gauge x 5/32 (disposable insulin pen needle)Indication s:Controlled type 2 diabetes mellitus without complication, unspecified whether custodial insulin use (HC) Use four times daily 400 Each 3 4 11:46 AM CDT 12/29/19 23 2024 Discontin ued(Reord er (E-cancel not sent)) albuterol-ipratro pium (DUONEB) (2.5-0.5 mg) in 3 mL NEBULIZATION solutionIndicatio ns:Chronic bronchitis, unspecified chronic bronchitis type (HC) Inhale 3 mL via a nebulizer every 6 hours if needed for shortness of breath. 720 mL 11 4 10:06 AM CDT 01/21/20 23 2023 Discontin ued(Reord er (E-cancel not sent)) continuous glucose monitor SENSOR KIT (FreeStyle Brendan 2 Sensor)Indication s:Type 2 diabetes mellitus with diabetic neuropathy, with long-term current use of insulin (HC) As directed. Change every 14 days 6 Each 3 4 10:06 AM INSECTICIDE SPRAYER 04/11/19 24 2023 Discontin ued(Dupli carie therapy (E-cancel not sent)) CPAPIndications:O SA (obstructive sleep apnea) Resmed CPAP machine for home use at pressure 11 cmw with epr of 3, CPAP mask- mask of choice, fit to comfort one per 3 months 1 Each 11 01/19/20 24 2023 Discontin ued(Reord er (E-cancel not sent)) Active Problems Problem Noted Date Diagnosed Date Anemia, chronic disease 2024 Depression, recurrent 10/10/2023 Ulcer of lower extremity, [...] Encounters Date Type Department Care Team Description 02/19/2024 Travel 02/17/2024 Refill [facility] [address] [facility] [address] [place] [address] Lester Morris MD Refill Request 02/07/2024 11:11 AM INSECTICIDE SPRAYER - 02/07/2024 11:59 PM INSECTICIDE SPRAYER Hospital Encounter [address] [address] Siddhartha Ho, DO Centrilobular emphysema (HC) 02/07/2024 Travel 01/31/2024 11:06 AM INSECTICIDE SPRAYER - 01/31/2024 11:59 PM INSECTICIDE SPRAYER Hospital Encounter [address] [address] Siddhartha Ho, DO Centrilobular emphysema (HC) 01/31/2024 Travel 01/26/2024 10:36 AM INSECTICIDE SPRAYER - 01/26/2024 11:59 PM INSECTICIDE SPRAYER Hospital Encounter [address] [address] Siddhartha Ho, DO Centrilobular emphysema (HC) 01/26/2024 Travel 01/24/2024 11:08 AM INSECTICIDE SPRAYER - 01/24/2024 11:59 PM INSECTICIDE SPRAYER Hospital Encounter [address] [address] Siddhartha Ho, DO Centrilobular emphysema (HC) 01/24/2024 Travel 01/23/2024 Refill [facility] [address] [place] [address] Pollo Lemus MD Refill Request 01/23/2024 Refill [facility] [address] [place] [address] Karen Ibarra PA Refill Request (Triamcinolone) 01/23/2024 Refill [facility] [address] [facility] [place] [address] Siddhartha Ho, DO Refill Request 01/19/2024 1:30 PM INSECTICIDE SPRAYER Office Visit [facility] [address] [place] [address] Ildefonso Henriquez MD Sleep Follow-up 01/19/2024 Travel 01/17/2024 11:08 AM INSECTICIDE SPRAYER - 01/17/2024 11:59 PM INSECTICIDE SPRAYER Hospital Encounter [address] [address] Siddhartha Ho, DO Centrilobular emphysema (HC) 01/17/2024 Travel 01/14/2024 Refill [facility] [address] [facility] [address] [place] [address] Lester Morris MD Refill Request (Novolog Flexpen U-100 Insulin) 01/14/2024 Travel 01/13/2024 3:00 PM INSECTICIDE SPRAYER Telemedicine [facility] [address] [place] [address] Pravin Coley [facility] 01/10/2024 11:06 AM INSECTICIDE SPRAYER - 01/10/2024 11:59 PM INSECTICIDE SPRAYER Hospital Encounter [address] [address] Siddhartha Ho, DO Centrilobular emphysema (HC) 01/10/2024 Travel 01/08/2024 Travel 01/07/2024 Refill [facility] [address] [place] [address] Pravin Coley, [facility] Refill Request (Flexeril) 01/05/2024 11:09 AM INSECTICIDE SPRAYER - 01/05/2024 11:59 PM INSECTICIDE SPRAYER Hospital Encounter [address] [address] Siddhartha Ho DO Centrilobular emphysema (HC) 01/05/2024 Travel 2024 3:05 PM INSECTICIDE SPRAYER Office Visit [facility] [address] [place] [address] Brian Parker MD Follow Up (UTI - things seem to be better ) 01/03/2024 11:11 AM INSECTICIDE SPRAYER - 01/03/2024 11:59 PM INSECTICIDE SPRAYER Hospital Encounter [address] [address] Siddhartha Ho DO Centrilobular emphysema (HC) 01/03/2024 Travel 12/30/2023 Travel 12/23/2023 3:20 PM INSECTICIDE SPRAYER Office Visit [facility] [address] [place] [address] Karen Ibarra PA Follow Up (Still having UTI sx but seeing urologist on Tuesday. ); Medication Management (Needs refill of nebulizer tubing and mouthpiece ) 12/23/2023 Travel 12/18/2023 Travel 12/16/2023 E-Visit [facility] [address] [place] [address] Brian Parker MD Extending my prescription 12/12/2023 1:25 PM CDT Office Visit [facility] [address] [place] [address] Brian Parker MD UTI (follow up- still having some symptoms ); Constipation (been 3 days still last bowel movement ) 12/11/2023 Travel 12/07/2023 Travel 12/07/2023 Refill [facility] [address] [place] [address] Karen Ibarra PA Refill Request (Prozac) 12/04/2023 11:40 AM CDT Telemedicine [facility] [address] [place] [address] Danii Callejas PA UTI 12/04/2023 Travel 12/01/2023 11:13 AM CDT - 12/01/2023 11:59 PM CDT Hospital Encounter [address] [address] Siddhartha Ho, DO Centrilobular emphysema (HC) 12/01/2023 Travel 11/29/2023 11:07 AM CDT - 11/29/2023 11:59 PM CDT Hospital Encounter [address] [address] Siddhartha Ho, Centrilobular emphysema (HC) 11/29/2023 Travel 11/24/2023 10:59 AM CDT - 11/24/2023 11:59 PM CDT Hospital Encounter [address] [address] Siddhartha Ho, Centrilobular emphysema (HC) 11/24/2023 Travel from Last 3 Months Immunizations Name Administration Dates Next Due COVID-19 VACCINE SPIKEVAX (M ODERNA 50MCG/0.5ML) 12YO+ PFS 05/16/2023 COVID-19 vaccine (Moderna 100mcg/0.5mL) PF, MDV 06/17/2021,01/12/2021,05/01/2020,03/31 COVID-19 vaccine (Moderna 50 mcg/0.5mL) 12YO+ BIVALENT PF, MDV 12/19/2021 Influenza, High-dose Inactivated 11/14/2023 Influenza, High-dose Quadriv alent Inactivated 11/08/2022,12/25/2021 RSV, [...] e alcohol) haven't had any since 1998 [facility] Utilities Answer Date Recorded Do you have trouble paying f or utilities (for example, heat, electricity, water, phone)? Yes 08/03/2023 PHQ-2 Answer Date Recorded PHQ-2 TOTAL SCORE 0 01/10/2024 Social Connections Answer Date Recorded Do you often feel lonely or isolated from those around you? 0 08/03/2023 Financial Resource Strain Answer Date R ecorded Difficulty of Paying Living Expenses 3 08/03/2023 Difficulty of Paying Living Expenses Not on file 08/03/2023 Food Insecurity Answer Date Recorded Do you worry your food will run out before you are able to buy more? 1 08/03/2023 Transportation Needs Answer Date Record ed Does lack of transportation keep you from medica l appointments? 1 08/03/2023 Does lack of transportation keep you from work, meetings or getting things that you need? 1 08/03/2023 Housing Stability Answer Date Recorded What is your housing situation today? 1 08/03/2023 Interpersonal Safety Answer Date Record ed Are you being hit, kicked, p ushed or yelled at (see row info)? No 11/14/2023 Interpersonal Safety Abuse 12 - 18 Not on file 11/14/2023 Interpersonal Safety Ambulatory Vulnerability No t on file 11/14/2023 Sex and Gender Information Value Date Recorded Sex Assigned at Male 09/26/2019 6:55 PM CDT Legal Sex Male 5:43 AM INSECTICIDE SPRAYER Gender Identity Male 09/26/2019 6:55 PM CDT Sexual Orientation Straight 09/26/2019 6: 55 PM CDT Obstetrics History Last Filed Vital Signs Vital Sign Reading Time Taken Comments Blood Pressure 138/66 02/07/2024 11:15 AM INSECTICIDE SPRAYER Pulse 87 02/07/2024 11:15 AM INSECTICIDE SPRAYER Temperature 36.6 C (97.9 F) 09/06/2023 11:04 AM CDT Respiratory Rate 20 02/07/2024 11:15 AM INSECTICIDE SPRAYER Oxygen Saturation 95% 02/07/2024 11:15 AM INSECTICIDE SPRAYER Inhaled Oxygen Concentration - - Weight 108.9 kg (240 lb) 02/07/2024 11:15 AM INSECTICIDE SPRAYER Height 172 cm (5' 7.72) 02/07/2024 11:15 AM INSECTICIDE SPRAYER Body Mass Index 36.8 02/07/2024 11:15 AM INSECTICIDE SPRAYER Plan of Treatment Upcoming Encounters Date Type Department Care Team (Late st Contact Info) Description 02/28/2024 11:15 AM INSECTICIDE SPRAYER Appointment [address] [address] 03/01/2024 11:15 AM INSECTICIDE SPRAYER Appointment [address] [address] 03/06/2024 11:15 AM INSECTICIDE SPRAYER Appointment [address] [address] 03/12/2024 3:20 PM INSECTICIDE SPRAYER Office Visit [facility] [address] [place] [address] Karen Ibarra PA [address] [place] [address] 04/25/2024 3:30 PM CDT Office Visit [facility] [address] [place] [address] Ildefonso Henriquez MD [address] [place] [address] 05/08/2024 3:55 PM CDT Telemedicine [facility] [address] [place] [address] Lester Morris MD [address] [place] [address] 07/12/2024 4:30 PM CDT Office Visit [facility] [address] [place] [address] Pravin Coley, [facility] [address] [place] [address] Health Maintenance Due Date Last Done Comments Tdap 01/03/1963 Pneumococcal series for age 50+ (1 of 2 - PCV) 01/03/1971 Tetanus booster 1972 Zoster (shingles) series for age 50+ (1 of 2) 01/03/2002 Fecal testing non-DNA (FIT,FOBT,iFOBT) for age 45-75 05/16/2024 05/17/2023, 10/29/2021, 08/19/2018, Additional history exists Medicare Wellness for age 65+ 10/10/2024, 09/08/2022, 09/09/2021, Additional history exists BMI (ht and wt on same day) for age 18+ 01/18/2025 01/19/2024, 10/10/2023, 07/14/2023, Additional history exists Depression screening for age 12+ 01/18/2025 01/19/2024, 01/13/2024, 01/10/2024, Additional history exists Lipids for age 45-75 05/15/2028 05/16/2023, 05/25/2022, 10/28/2021, Additional history exists Hepatitis C screening for ag e 18-79 Completed 04/08/2017 AAA screening age 65-74 Completed 10/15/2022 RSV vaccine for adults or Completed 12/18/2022 COVID-19 vaccine series Completed 11/07/19 24, 05/16/2023, 11/12/2022, Additional history exists Influenza for age 65+ Completed 11/14/2023 , 11/08/2022, 12/25/2021 Goals Goal Patient Goal Type Associated Problems Recent Progress Patient-Stated? Author BLOOD PRESSURE - MAINTAINS BP less than 140/90 Blood Pressure No Hailee Castro MD Procedures Procedure Name Priority Date/Time Associated Diagnosis Comments IRON PLUS IRON BINDING CAP Routine 12/12/2023 2:30 PM CDT Mild chronic anemia CBC W PLT NO DIFF Routine 12/12/2023 2:3 0 PM CDT Mild chronic anemia RETICULOCYTES Routine 12/12/2023 2:30 PM CDT Mild chronic anemia URINALYSIS MACROSCOPIC - [facility] ONLY POC DIP ([facility]) Routine 12/12/2023 1:31 PM CDT UTI (urinary tract infection), uncomplicated URINALYSIS MICROSCOPIC Routine 12/12/2023 1:30 PM CDT UTI (urinary tract infection), uncomplicated URINE CULTURE Routine 12/12/2023 1:30 PM CDT UTI (urinary tract infection), uncomplicated OCCULT BLOOD IFOBT STOOL Routine 05/17/2023 12:24 PM CDT Screening for colon cancer LIPID PANEL W REFLEX MEASURED LDL Routine 05/16/2023 3:27 PM CDT Mixed hyperlipidemia US ABD AORTA SCREENING Routine 10/15/2022 9:54 AM CDT Encounter for abdominal aortic aneurysm (AAA) screening ANTI HCV Routine 04/08/2017 3:48 PM INSECTICIDE SPRAYER Encounter for hepatitis C screening test for low risk patient from Last 3 Months or Most Recently Relevant to Health Maintenance Results * (ABNORMAL) IRON PLUS IRON BINDING CAP (12/12/2023 2:30 PM CDT) IRON, TOTAL 47(L) 50 - 180 mcg/dL [facility] IRON BINDING CAPACITY 224(L) 250 - 425 mcg/dL (calc) [facility] % SATURATION 21 20 - 48 % (calc) [facility] Blood BLOOD SPECIMEN / Unknown 12/12/2023 2:30 PM CDT 12/12/2023 2:30 PM CDT Brian Parker MD CHEMISTRY Final Result [facility] [address] [place] [address], [facility] [address] [place] [address] * (ABNORMAL) CBC W PLT NO DIFF (12/12/2023 2:30 PM CDT) Pathologist [facility] WHITE BLOOD CELL COUNT 11.3(H) 3.8 - 10.8 Thousand/u L [facility] RED BLOOD CELL COUNT 4.19(L) 4.20 - 5.80 Million/uL [facility] HEMOGLOBIN 11.7(L) 13.2 - 17.1 g/dL [facility] HEMATOCRIT 36.7(L) 38.5 - 50.0 % [facility] MCV 87.6 80.0 - 100.0 fL [facility] MCH 27.9 27.0 - 33.0 pg [facility] MCHC 31.9(L) 32.0 - 36.0 g/dL [facility] Comment: For adults, a slight decrease in the calculated MCHC value (in the range of 30 to 32 g/dL) is most likely not clinically significant; however, it should be interpreted with caution in correlation with other red cell parameters and the patient's clinical condition. RDW 12.6 11.0 - 15.0 % [facility] PLATELET COUNT 442(H) 140 - 400 Thousand/u L [facility] MPV 10.0 7.5 - 12.5 fL [facility] Blood BLOOD SPECIMEN / Unknown 12/12/2023 2:30 PM CDT 12/12/2023 2:30 PM CDT Brian Parker MD HEMATOLOGY Final Result [employer] [facility] [address] [place] [address], [place] [phone] [facility] [address] [place] [address] * RETICULOCYTES (12/12/2023 2:30 PM CDT) Pathologist [facility] RETICULOCYTE COUNT, AUTOMATED 1.1 % [facility] RETICULOCYTE, ABSOLUTE 46,090 25,000 - 90,000 cells/uL [facility] [facility] Blood BLOOD SPECIMEN / Unknown 12/12/2023 2:30 PM CDT 12/12/2023 2:30 PM CDT Brian Parker MD HEMATOLOGY Final Result Performing Organization Address [facility]/ZIP Co de Phone Number [employer] [facility] [address] [place] [address], [place] [phone] [facility] [address] [place] [address] * (ABNORMAL) POCT Urinalysis Dipstick Only (12/12/2023 1:31 PM CDT) Pathologist [facility] PH 5.5 5.0 - 8.0 [facility] SPECIFIC GRAVITY 1.015 1.001 - 1.035 [facility] GLUCOSE NEGATIVE NEGATIVE [facility] BILIRUBIN NEGATIVE NEGATIVE [facility] KETONES NEGATIVE NEGATIVE [facility] OCCULT BLOOD TRACE(A) NEGATIVE [facility] PROTEIN 1+(A) NEGATIVE [facility] NITRITE NEGATIVE NEGATIVE [facility] LEUKOCYTE ESTERASE 2+(A) NEGATIVE [facility] Urine URINE SPECIMEN / Unknown 12/12/2023 1:31 PM CDT 12/12/2023 1:31 PM CDT Brian Parker MD URINE Final Result [facility] [address] [place] [address], [place] [phone] [facility] [address] [place] [address] * (ABNORMAL) URINALYSIS MICROSCOPIC (12/12/2023 1:30 PM CDT) WBC UA > OR = 60(A) < OR = 5 /HPF [facility] RBC UA 0-2 < OR = 2 /HPF [facility] SQUAMOUS EPITHELIAL CELLS UA 0-5 < OR = 5 /HPF [facility] BACTERIA UA NONE SEEN NONE SEEN /HPF [facility] HYALINE CAST 10-20(A) NONE SEEN /LPF [facility] NOTE UA [facility] Comment: This urine was analyzed for the presence of WBC, RBC, bacteria, casts, and other formed elements. Only those elements seen were reported. Urine URINE SPECIMEN / Unknown 12/12/2023 1:30 PM CDT 12/12/2023 1:30 PM CDT Brian Parker MD URINE Final Result [facility] [address] [facility] [place] [place] [address], [place] [phone] [facility] [address] [place] [address] * (ABNORMAL) URINE CULTURE (12/12/2023 1:30 PM CDT) CULTURE, URINE, ROUTINE SEE NOTE(A) [facility] Comment: CULTURE, URINE, ROUTINE Micro Number: [id number] Test Status: Final Specimen Source: Urine, clean catch Specimen Quality: Adequate Result: 50,000-100,000 CFU/mL of Pseudomonas aeruginosa Ps.aeruginosa INT HUMBERTO AMIKACIN S 4 CEFEPIME S 2 CEFTAZIDIME S 4 CIPROFLOXACIN S 0.25 GENTAMICIN S <=1 IMIPENEM S <=0.5 LEVOFLOXACIN S 0.5 MEROPENEM S 1 PIP/TAZOBACTAM S <=4 S = Susceptible I = Intermediate R = Resistant NS = Not susceptible SDD = Susceptible Dose Dependent * = Not Tested NR = Not Reported NN = See Therapy Comments Urine URINE SPECIMEN / Unknown 12/12/2023 1:30 PM CDT 12/12/2023 1:30 PM CDT Brian Parker MD MICROBIOLOGY Final Result Performing Organization Address [facility] de Phone Number [employer] [facility] [address] [place] [address], [facility] [address] [place] [address] * OCCULT BLOOD IFOBT STOOL (05/17/2023 12:24 PM CDT) STOOL BLOOD ,IFOBT Negative Negative 05/27/2023 7:28 AM CDT [facility] Stool STOOL SPECIMEN / Unknown Non-Blood / Unknown 05/17/2023 12:24 PM CDT 05/24/2023 12:24 PM CDT Karen ESQUIVEL LABORATORY Final R esult Performing Organization Address City/[facility]/ZIP Co de Phone Number [facility] [address] [place] [address], [place] [phone] * (ABNORMAL) LIPID PANEL W REFLEX MEASURED LDL (05/16/2023 3:27 PM CDT) CHOLESTEROL,TOTAL 107 100 - 199 mg/dL 05/16/2023 9:24 PM CDT [facility] Comment: Cholesterol, Total Reference Ranges Desirable <200 mg/dL Borderline 200-239 mg/dL High >=240 mg/dL TRIGLYCERIDES 92 <150 mg/dL 05/16/2023 9:24 PM CDT [facility] HDL CHOLESTEROL 40(L) >40 mg/dL 9:24 PM CDT [facility] NON-HDL CHOLESTEROL 67 <145 mg/dl 05/16/2023 9:24 PM CDT [facility] CHOL/HDL RATIO 2.68 <4.50 05/16/2023 9:24 PM CDT [facility] LDL CHOLESTEROL 49 <=130 mg/dL 05/16/2023 9:24 PM CDT [facility] VLDL CHOLESTEROL 18 <=30 mg/dL 05/16/2023 9:24 PM CDT [facility] PROVIDER ORDERED STATUS RANDOM 05/16/2023 9:24 PM CDT [facility] Blood BLOOD SPECIMEN / Unknown Venipuncture / Unknown 05/16/2023 3:27 PM CDT 05/16/2023 3:28 PM CDT us Karen ESQUIVEL CHEMISTRY Final R esult [facility] [address] [place] [address], [place] * US ABD AORTA SCREENING (10/15/2022 9:54 AM CDT) Anatomical Region Laterality Modality Abdomen, AORTA Ultrasound 10/15/2022 10:5 9 AM CDT Narrative 10/15/2022 10:59 AM CDT For Patients: As a result of the 21st Century Cures Act, medical imaging exams and procedure reports are released immediately into your electronic medical record. You may view this report before your referring provider. If you have questions, please contact your health [...] @ Oct 15 2022 10:59AM (Electronically Signed) Procedure Note Mirza Romero MD - 10/15/2022 [...] 10:59AM (Electronically Signed) Boo Pipe Koo MD Nadine kim Result * ANTI HCV (04/08/2017 3:48 PM INSECTICIDE SPRAYER) HEPATITIS C ANTIBODY Non-Reacti ve Non-Reacti ve 04/09/2017 4:26 PM INSECTICIDE SPRAYER [facility] Blood BLOOD SPECIMEN / Unknown Butterfly / Unknown 04/08/2017 3:48 PM INSECTICIDE SPRAYER 04/08/2017 3:48 PM INSECTICIDE SPRAYER Narrative [facility] - 04/09/2017 4:26 PM INSECTICIDE SPRAYER Antibodies to HCV not detected; does not exclude the possibility of exposure to HCV. Karen ESQUIVEL SEND OUTS Final R esult [facility] [address] [place] [address], from Last 3 Months or Most Recently Relevant to Health Maintenance Insurance MEDICARE PART A HB ONLY MEDICARE PART B HB ONLY [facility] MEDICARE PART B HB ONLY MEDICAID [facility] [employer]ERTER INSURANCE Advance Directives Documents on File Type Date Recorded Patient Software Test Automation Engineer Expl anation Healthcare Directive 02/03/2017 9:44 AM [...] 1:23 PM 09/04/2013 12:34 PM Care Teams Instrumental Teacher Relationship Specialty Start Date End Date Karen Ibarra [place] [place] [address] PCP - General Family Practice 06/09/10 Eve Yap RN [address] [address] [place] - [facility] Registered Nurse 12/15/16 Monalisa Meza, RN [address] [address] [place] - [facility] Registered Nurse 12/15/[address] [place] [phone] Drum Sander Setter Control Room Tender 07/30/20 Jessica Espinoza RN [address] [address] [place] - [facility] Registered Nurse 12/05/20 Lester Morris MD [address] [facility] [address] [place] [address] Endocrinology 09/09/21 Siddhartha Ho DO [address] [address] Pulmonary Medicine 09/09/21 Karol Pinto, PharmD Pharmacist Medication Management Pharmacology 04/01/23 04/11/26
--- OUTSIDE RECORDS SUMMARY | 2024-02-21 20:23 | XMS_ITS | Referral Summary ---
Author Organization [place] Address [address] [facility] [place] [address] Care Team Providers Care Solid Plasterer Name Role Phone Karen Ibarra Primary Care Provider [phone] Allergies Active Allergy Reactions Criticality Noted Date Comments Lisinopril Cough 11/03/2017 Medications TRIAMTERENE-HCT Z 25-37.5 MG OR CAPS 1 OR 2 CAPSULES DAILY 60 0 8 Active VYTORIN 10-40 MG OR TABS 1 TABLET EVERY EVENING 30 0 8 Active METFORMIN HCL 500 MG OR TABS ONE TABLET WITH BREAKFAST AND ONE TABLET WITH DINNER 3 MONTHS 0 8 Active SPIRIVA HANDIHALER 18 MCG IN CAPS 1 CAPSULE DAILY 30 0 8 Active DOCUSATE SODIUM PO Take 100 mg [...] PETROLEUM, FV COMPOUNDED, CREAM 2 times daily Active Acetaminophen (TYLENOL PO) Take 650 mg by mouth Active budesonide-form oterol (SYMBICORT) 160-4.5 MCG/ACT Inhaler Inhale 2 puffs into the lungs 2 times daily Active ipratropium - albuterol 0.5 mg/2.5 mg/3 mL (DUONEB) 0.5-2.5 (3) MG/3ML neb solution Take 1 vial by nebulization every 6 hours as needed for shortness of breath / dyspnea or wheezing Active Active Problems Problem Noted Date Diagnosed Date Obesity 11/09/2007 LUCIEN (obstructive sleep apnea) 11/09/2007 Overview (11/09/2007): Sleep study 09/20- AHI 12.8, REM AHI 69.5, Supine AHI 14.2, RDI 22.4, Last 88%, PLMI 11, PLMAI 1.1. CPAP 11cm effective REM-lateral. Diabetes mellitus, type 2 Overview (11/15/2014): Dx 2003 Problem list name updated by automated process. Provider to review Hypertension Overview (11/09/2007): Dx 2004 COPD (chronic obstructive pulmonary disease) Overview (11/09/2007): Quit smoking 2002. [id number] years. 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 on file No t on file Last Filed Vital Signs Vital Sign Reading Time Taken Comments Blood Pressure 128/72 11/04/2017 1:52 PM CDT Pulse 80 11/04/2017 1:52 PM CDT Temperature 36.2 C (97.2 F) 11/04/2017 11:50 AM CDT Respiratory Rate 18 11/04/2017 1:52 PM CDT Oxygen Saturation 96% 11/04/2017 1:52 PM CDT Inhaled Oxygen Concentration - - Weight 114 kg (251 lb 6.4 oz) 11/04/2017 8:57 AM CDT Height 172.7 cm (5' 8) 11/04/2017 8:57 AM CDT Body Mass Index 38.23 11/04/2017 8:57 AM CDT Plan of Treatment Not on file Care Teams Solid Plasterer Relationship Specialty Start Date End Date Karen Ibarra PCP - General Physician Comsec Manager 10/28/17
--- OUTSIDE RECORDS SUMMARY | 2024-02-21 20:23 | XMS_ITS | Data Portability ---
Author Organization [facility] Address [address] [facility] [address] [place] [address] Care Team Providers Care Vice Admiral Name Role Phone MAXIMO CUEVAS Primary Care Provider Assessment No assessment recorded. Plan of Treatment Reminders Order Date Submit Date Provider Last Modified By Organization Details Last Modified Time Details Appointments None record ed. Lab None record ed. Referral None record ed. Procedures None record ed. Surgeries None record ed. Imaging None record ed. Medication Orders None record ed. Patient TargetsNo targets recorded. Patient InstructionsNo instructions recorded. Reason for Referral None Reported. 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 Procedures Surgical History Date Name Laterality Status Provider Name and Address Organization Details Recorded Time Bladder Scan completed William Zimmerman MD [address] [facility],[address], [place], [address], [facility] 12/26/2023 16:17:43 Imaging Results None recorded. Procedure Notes None recorded. Medical Equipment None Reported. Medications Name Sig Start Date Stop Date Status Note LastModified by Organization Details LastModified Time cyclobenzap rine 10 mg tablet active Not Available Not Available Not Available furosemide 40 mg tablet active Not Available Not Available Not Available metolazone 2.5 mg tablet Take one tablet BY MOUTH now* active Not Available Not Available No t Available metformin 500 mg tablet active Not Available Not Available Not Available carvedilol 6.25 mg tablet active Not Available Not Available Not Available prednisone 10 mg tablet take 4 tablets by mouth once daily in the morning with breakfast for 3 days, then 3 tabs daily for 3 days, then 2 tablets daily for 3 days, then 1 tablet daily for 3 days.* 12/25 completed Not Available Not Available Not Available ipratropium 0.5 mg-albutero l 3 mg (2.5 mg base)/3 mL nebulizatio n soln active Not Available Not Available Not Available cetirizine 10 mg tablet active Not Available Not Available Not Available prednisone 20 mg tablet TAKE ONE TABLET BY MOUTH TWICE DAILY for 5 days* active Not Available Not Available No t Available levofloxaci n 250 mg tablet TAKE ONE TABLET BY MOUTH ONE TIME DAILY BEFORE MEALS* active Not Available Not Available No t Available sulfamethox azole 800 mg-trimetho prim 160 mg tablet TAKE ONE TABLET BY MOUTH TWICE DAILY* 12/25 completed Not Available Not Available Not Available triamcinolo ne acetonide 0.1 % topical cream active Not Available Not Available Not Available acetaminoph en ER 650 mg tablet,exte nded release active Not Available Not Available Not Available ketorolac 0.5 % eye drops instill 1 drop into both eyes by ophthalmi c route no more than 4 times per day* active Not Available Not Available No t Available prednisolon e acetate 1 % eye drops,suspe nsion INSTILL 1 DROP INTO LEFT EYE 2 TIMES PER DAY FOR 2 MORE WEEKS, THEN STOP; SHAKE BEFORE USE* active Not Available Not Available No t Available amlodipine 10 mg tablet active Not Available Not Available Not Available doxycycline monohydrate 100 mg capsule TAKE ONE CAPSULE BY MOUTH TWICE DAILY FOR 7 DAYS* 12/25 completed Not Available Not Available Not Available cephalexin 500 mg capsule TAKE 1 CAPSULE BY MOUTH TWICE DAILY FOR 10 DAYS* 12/25 completed Not Available Not Available Not Available fluoxetine 10 mg capsule active Not Available Not Available Not Available docusate sodium 100 mg capsule active Not Available Not Available N ot Available pramipexole 0.25 mg tablet active Not Available Not Available Not Available gabapentin 300 mg capsule active Not Available Not Available Not Available hydroxyzine HCl 25 mg tablet TAKE ONE TABLET BY MOUTH EVERY SIX HOURS NEEDED FOR ITCHING* active Not Available Not Available No t Available albuterol sulfate HFA 90 mcg/actuati on aerosol inhaler active Not Available Not Available Not Available losartan 100 mg tablet active Not Available Not Available Not Available fluoxetine 20 mg capsule active Not Available Not Available Not Available fluticasone propionate 50 mcg/actuati on nasal spray,suspe nsion active Not Available Not Available Not Available clotrimazol e 1 % topical cream APPLY TO AFFECTED AREA(S) BY TOPICAL ROUTE TWICE DAILY.* active Not Available Not Available No t Available doxycycline hyclate 100 mg tablet Take 1 Tablet (100 mg) by mouth two times daily before meals for 7 days.* 12/25 completed Not Available Not Available Not Available atomoxetine 40 mg capsule take 2 capsules by mouth daily for 2 weeks then decrease to 1 capsule daily for 2 weeks* active Not Available Not Available No t Available Novolog FlexPen U-100 Insulin aspart 100 unit/mL (3 mL) subcutaneou s INJECT 30 - 35 UNITS SUBCUTANE OUSLY THREE TIMES DAILY BEFORE MEALS. TOTAL DAILY DOSE OF 100 UNITS.* active Not Available Not Available No t Available cyclosporin e 0.05 % eye drops in a dropperette active Not Available Not Available Not Available rosuvastati n 10 mg tablet active Not Available Not Available Not Available nitrofurant oin monohydrate /macrocryst als 100 mg capsule TAKE ONE CAPSULE BY MOUTH TWICE DAILY FOR 5 DAYS* 12/25 completed Not Available Not Available Not Available atomoxetine 100 mg capsule active Not Available Not Available Not Available budesonide- formoterol HFA 160 mcg-4.5 mcg/actuati on aerosol inhaler active Not Available Not Available Not Available Lantus Solostar U-100 Insulin 100 unit/mL (3 mL) subcutaneou s pen active Not Available Not Available Not Available Systane Nighttime 94 %-3 % eye ointment APPLY A SMALL AMOUNT INSIDE LOWER EYELIDS OF BOTH EYES ONCE DAILY AT BEDTIME.* active Not Available Not Available No t Available OneTouch Verio test strips active Not Available Not Available Not Available InnoSpire Essence device NEBULIZER , DISPOSABL E NEB KIT X 4, REUSEABLE NEB KIT X 1, MASK X 1, FILTERS X 1. FREQUENCY OF USE: DAILY; active Not Available Not Available No t Available Eliquis 5 mg tablet active Not Available Not Available No t Available Spiriva Respimat 2.5 mcg/actuati on solution for inhalation active Not Available Not Available N ot Available OneTouch Verio Flex Meter active Not Available Not Available Not Available BD Audelia 2nd Gen Pen Needle 32 gauge x 5/32 active Not Available Not Available Not Available OneTouch Delica Plus Lancet 33 gauge active Not Available Not Available Not Available FreeStyle Brendan 2 Sensor kit active Not Available Not Available N ot Available Tyrvaya 0.03 mg/spray nasal spray INSTILL 1 SPRAY IN EACH NOSTRIL TWICE DAILY APPROXIMA TELY 12 HOURS APART active Not Available Not Available No t Available Paxlovid 300 mg (150 mg x 2)-100 mg tablets in a dose pack Take 2 nirmatrel vir 150 mg pink-oval tablets and 1 ritonavir 100 mg white-ova l tablet together twice daily for 5 days.* active Not Available Not Available No t Available FreeStyle Brendan 3 Sensor device active Not Available Not Available Not Available One-A-Day Women's 50 Plus 0.4 mg tablet active Not Available Not Available Not Available Vitals Date Recorded Body height Body mass index (BMI) Body weight Provider Name and Address Organization Details Last Updated DateTime 12/26/2023 172.72 cm 35.7 kg/m2 969004.21 g William Zimmerman MD [address] [facility] [address], [place], [address], [place] - [facility] 12/26/2023 16:14:19 Social History Question Answer Notes LastModified by Organizat ion Details LastModified Time Tobacco Smoking Status Former Smoker William Zimmerman MD [address] [facility],[address], [place], [address], [facility] - [facility] 12/26/2023 16:17:01 What Is Your Level Of Alcohol Consumption? None raasc Information not available 12/26/2023 When Did You Quit Smoking? 16+yearssinc elastcigaret te Information not available 12/26/2023 What Was The Date Of Your Most Recent Tobacco Screening? 12/26/2023 Information not available 12/26/2023 Sex: Unknown Functional Status None recorded. Mental Status None recorded. Family History Nothing Reported. 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 He is emptying his bladder well and has no subjective complaints or difficulty voiding. Follow-up as needed. Urinary tr act infectious disease 74340685 N39.0 - He will finish his course of Levaquin Balanitis 28462539 N48.1 - Advised to continue clotrimazo le cream as prescribed Health Concerns Section Related Observation LastModified by Organization Detai ls LastModified Time None Recorded Concern Status LastModified by Organization Details LastModified Time None Recorded Advance Directives Directive None Recorded Payers Encounter Date Sequence Insurance Name Policy Number Policy Norton Covered Member ID Norton Member ID Guarantor Name 12/26/2023 1 [employer] - DOS ON OR AFTER 2022 - DUAL ELIGIBLE (MEDICARE REPLACEMENT/ ADVANTAGE - HMO) [id number] Guillermo T Alejandro [id number] Guillermo Allen Notes Date Note Type Note Provider Name and Address Organization Details Recorded Time 12/26/2023 text/html 73-year-old with multiple medical problems referred for recurrent UTIs. He is in a wheelchair and is on home oxygen. I reviewed the most recent clinic note from Dr. Parker dated 12/12/2023. Patient has a history of buried penis and obstruction and required some type of procedure by Dr. Morrow about 10 years ago. It sounds like it was probably meatoplasty and/or dilation. He does not have any difficulties with weak stream or voiding difficulty. He had a recent urine culture reviewed from 12/12/2023 that shows pansensitive Pseudomonas. He was treated with Levaquin. He denies any gross hematuria. He does wear incontinence pads. He reports some pain and swelling of his glans and foreskin and was reportedly in the ER on 12/07/2023 and prescribed cephalexin as well as topical clotrimazole for balanitis. He continues to use the cream with some improvement. Postvoid residual today is 34 mL. William Zimmerman MD [address] [facility],[address], [place], [address], [facility] 12/26/2023 17:32:03
--- OUTSIDE RECORDS SUMMARY | 2024-02-21 20:23 | XMS_ITS | Clinical Summary ---
Author Organization [facility] Address [address] [facility] [place] [address] Care Team Providers Care Spray Worker Name Role Phone Karen Ibarra Primary Care Provider [phone] Allergies Active Allergy Reactions Criticality Noted Date [...] pulmonary disease) Overview (11/09/2007): Quit smoking 2002. [id number] years. 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
--- OUTSIDE RECORDS SUMMARY | 2024-02-21 20:23 | XMS_ITS | Clinical Summary ---
Author Organization [facility] Address [address] [address] Phone Care Team Providers Care Community Health Counselor Name Role Phone Unavailable Primary Care Provider [...] 88 09/29/2018 9:04 PM CDT Temperature 36.3 C (97.3 F) 09/29/2018 9:04 PM CDT Respiratory Rate 18 09/29/2018 9:04 PM CDT [...]
== END 2024-02-21 20:47 | disposition home or self-care (01) ==
PROVIDERS: Emergency Provider Family Medicine; PCP Physician Assistant Medical
DX: J44.1 Chronic obstructive pulmonary disease with (acute) exacerbation (principal)
CPT/HCPCS: 71045; 87631; 99283; 99284

== ENCOUNTER 2025-02-13 14:59 | Emergency (ER) | payer OTHER, SELFPAY ==
--- OUTSIDE RECORDS SUMMARY | 2021-04-02 10:01 | XMS_ITS | Continuity of Care Document ---
Author Organization [facility] jaymie Address [address] [place] [address] Phone Care Team Providers Care Door Attendant Name Role Phone Will Darrel STALLINGS Unavailable Unavailabl e Allergies, Adverse Reactions, Alerts Substance Reaction Status Criticality lisinopril Active No Information Medications Medication Instructions Dosage Effective Dates (start - stop) Status Comments calcium carb,cit ER 600 mg calcium-vit D3 500 unit tablet,ext.release - Active albuterol sulfate concentrate 2.5 mg/0.5 mL solution for nebulization inhale 0.5 milliliter by nebulization route 3 times every day 2.5 MG - Active amlodipine 10 mg tablet take 1 tablet by oral route every day 10 MG - Active atomoxetine 100 mg capsule take 1 capsule by oral route every day 100 MG - Active cetirizine 10 mg tablet take 1 tablet by oral route every day 10 MG - Active cyclobenzaprine 10 mg tablet take 1 tablet by oral route 3 times every day 10 MG - Active DOK 100 mg capsule take 1 capsule by oral route every day at bedtime as needed - Active Eliquis 5 mg tablet take 1 tablet by oral route 2 times every day 5 MG - Active glipizide 10 mg tablet take 1 tablet by oral route 2 times every day before a meal 10 MG - Active furosemide 20 mg tablet take 1 tablet by oral route every day 20 MG - Active gabapentin 300 mg capsule take 1 capsule by oral route 3 times every day 300 MG - Active Lantus Solostar U-100 Insulin 100 unit/mL (3 mL) subcutaneous pen inject by subcutaneous route as per insulin protocol 0.00 - Active melatonin 3 mg tablet - Active metformin 500 mg tablet take 5 tablet by oral route 2 times every day with morning and evening meals 2500 MG - Active pioglitazone 30 mg tablet take 1 tablet by oral route every day 30 MG - Active polyethylene glycol 3350 17 gram/dose oral powder take (17G) by oral route every day mixed with 8 oz. water, juice, soda, coffee or tea - Active simvastatin 40 mg tablet take 1 tablet by oral route every day in the evening 40 MG - Active Spiriva with HandiHaler 18 mcg and inhalation capsules inhale 1 capsule by inhalation route every day using 2 inhalations via handihaler - Active Symbicort 160 mcg-4.5 mcg/actuation HFA aerosol inhaler inhale 2 puff by inhalation route 2 times every day in the morning and evening 2.00 puff - Active Toprol XL 25 mg tablet,extended release take 1 tablet by oral route every day 25 MG - Active Mapap Arthritis Pain 650 mg tablet,extended release take 2 tablet by oral route every 8 hours as needed swallowing whole with water. Do not break, crush, dissolve and/or chew. - Active losartan 100 mg tablet take 1 tablet by oral route every day 100 MG - Active Procedures Procedure Date OFFICE/OUTPATIENT VISIT, EST OFFICE/OUTPATIENT VISIT, EST OFFICE/OUTPATIENT VISIT, EST OFFICE CONSULTATION Advance Directives Directive Yes / No Effective Date File Name No Information Encounters Encounter Description Practice Location Reason(s) For Visit Diagnoses Date Provider Providers Copied on Encounter [facility], [address], [place], [id number], [place] tel:[phone] [facility] No Information 2 Evan Low. [address], [place], [id number], [place]. tel:[phone] OFFICE/OUTPATI ENT VISIT, EST [facility], [address], [place], [id number], [place] tel:[phone] [facility] low back pain (chief complaint) Other cervical disc degeneration, unsp cervical regionOther intervertebral disc degeneration, lumbar regionOth specific arthropathies, NEC, oth siteOther senior living (current) drug therapy [address], [place], [place], [id number], [place]. tel:[phone] OFFICE/OUTPATI ENT VISIT, [facility], [address] [place] [address], [id number], [place] tel:[phone] [facility] low back pain (chief complaint) Other cervical disc degeneration, unsp cervical regionOther intervertebral disc degeneration, lumbar regionOth specific arthropathies, NEC, oth siteOther senior living (current) drug therapy [address]. [address], [place], [place], [id number], [place]. tel:[phone] OFFICE/OUTPATI ENT VISIT, [facility], [address], [place], [id number], [place] tel:[phone] [facility] low back pain (chief complaint) Other cervical disc degeneration, unsp cervical regionOther intervertebral disc degeneration, lumbar regionOth specific arthropathies, NEC, oth siteOther senior living (current) drug therapy [address], [place], [place], [address], [place]. tel:[phone] Referring Provider: Darrel Garcia, [address] [place], [address] . tel:[phone] OFFICE CONSULTATION [facility], [address] [place] [address], [id number], [place] tel:[phone] [facility] low back pain (chief complaint) Other cervical disc degeneration, unsp cervical regionOth specific arthropathies, NEC, oth siteLow back painChronic pain syndromeOther senior living (current) drug therapyOther intervertebral disc degeneration, lumbar region [address], [place], [place], [id number], [place]. tel:[phone] Referring Provider: Lavelle Christiansen [address], [place], [address]. tel:[phone] [facility], [address] [place], [id number], [place] tel:[phone] [facility] [place] No Information 9 Evan Rojo. [address], [place], [id number], [place]. tel:[phone] Family History Family Member Type Diagnosis Age At Onset No Information Payers Payer name Insurance type Covered democrat ID Authoriza shameka(s) [employer] [id number] Social History Type Description Quantity Date Captured Comments Sex Male Smoking Status No Information Chief Complaint And Reason For Visit No Information Reason For Referral Reason For Referral No Information History Of Present Illness Encounter Date Complaint History Of Prese nt Illness low back pain (comments) Guillermo krishna ruthy for follow up regarding lower back pain. Pain today is improving.He continues with 2100mg gabapentin daily and TENS unit with significant benefit. Reports pain is well managed, it's not completely gone but I don't expect it to. It's at a liveable level. When pain is exacerbated, rest is typically helpful. Recently trialed sample CBD oil without any noticeable benefit.Guillermo is not accompanied by anyone today and has no further questions or concerns. low back pain Severity level i s 4-9. Duration: chronic. The problem is fluctuating. It occurs intermittently. The patient describes the pain as sharp. Symptoms are aggravated by standing, walking and housework. Symptoms are relieved by ice, lying down, massage, pain meds/drugs, physical therapy and TENS. low back pain Duration: chroni c. The problem is improving. It occurs persistently. The patient describes the pain as an ache. Symptoms are aggravated by bending, lifting, standing, walking and housework. Symptoms are relieved by lying down, massage, physical therapy, stretching, rest, sitting, changing positions and TENS. low back pain (comments) Guillermo bliss for follow up regarding lower back pain. Pain today is improving.States he is overall feeling better which is attributed to PT and daily TENS unit use. Feels the more he uses TENS unit, the longer lasting pain relief is for his lower back. Reports he would like to hold off on L5-S1 TESI as his pain is currently improved. He has not noticed any difference in his pain with decrease in gabapentin, but still continues to experience daytime drowsiness. Getting asleep and staying asleep is not an issue, therefore he contemplates the quality of his sleep. Current CPAP machine use and repeats sleep study every two years. Guillermo is not accompanied by anyone today and has no further questions or concerns. low back pain Severity level i s 8-9. Duration: chronic. The problem is stable. It occurs persistently. The patient describes the pain as an ache and sharp. Symptoms are aggravated by ascending stairs, descending stairs, sitting, standing, walking, movement and prolonged positioning. Symptoms are relieved by lying down, stretching and sitting. low back pain (comments) Guillermo erendira bliss for initial follow up regarding lower back pain. Pain today is stable.Reports his pain has remained the same over the past month. He received a call to schedule L5-S1 TESI, however he wanted to make sure WC would cover it and has yet to get a response. C/o increased daytime fatigue and contemplates if this could be r/t gabapentin increase. Sleep at night is not difficult. 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 low back pain (comments) Guillermo ambrose resents for initial consult regarding lower back pain. He is referred Dr. Pravin Coley. Pain has been present since 04/16/2002 following work related injury. He followed with PCP and completed several rounds of PT. Pain is described as an ache and travels into his mid back. Walking typically exacerbates his pain. Improvement with flexion. 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 PT has been helpful initially, however more recent sessions without benefit. Currently utilizing Flexeril. 1500mg Gabapentin daily for diabetic neuropathy pain without benefit. Reports prescriber would not trial higher dose. Ibuprofen made pain more manageable, however he has since been placed on a blood thinner. He is not interested in injections at this time d/t invasiveness and non lasting relief per reports of people he knows that have trialed them.Guillermo is interested in any adjuncts other than injections that may improve his pain and would like [facility] to resume management of care. He is not accompanied by anyone today and has no further questions or concerns. low back pain Severity level i s 3-9. Duration: chronic. It occurs persistently. The patient describes the pain as an ache. Symptoms are aggravated by ascending stairs, descending stairs, lifting, standing, walking and housework. Symptoms are relieved by lying down and sitting. Functional Status Date Functional Assessmen t No Information Instructions Date Instruction Additional Infor mation No Information Assessments Type Assessment Date No Information Patient Care Teams Name Effective Dates (start - stop) Status Members No Information
--- OUTSIDE RECORDS SUMMARY | 2021-04-02 10:01 | XMS_ITS | Continuity of Care Document ---
Author Organization [facility] jaymie Address [address] [facility] [place] [address] Phone Care Team Providers Care Assistant Head Cashier Name Role Phone Will Darrel STALLINGS Unavailable [...] Diagnoses Date Provider Providers Copied on Encounter [facility], [address] [place], [place], [id number], [place] tel:[phone] [facility] No Information 2 Evan Low. [address] [place], [place], [id number], [place]. tel:[phone] OFFICE/OUTPATI ENT VISIT, EST [facility], [address], [place], [id number], [place] tel:[phone] [facility] low back pain (chief complaint) Other cervical disc degeneration, unsp cervical regionOther intervertebral disc degeneration, lumbar regionOth specific arthropathies, NEC, oth siteOther senior care (current) drug therapy [address], [place], [place], [id number], [place]. tel:[phone] OFFICE/OUTPATI ENT VISIT, [facility], [address] [place] [address], [id number], [place] tel:[phone] [facility] low back pain (chief complaint) Other cervical disc degeneration, unsp cervical regionOther intervertebral disc degeneration, lumbar regionOth specific arthropathies, NEC, oth siteOther senior care (current) drug therapy [address], [place], [place], [id number], [place]. tel:[phone] OFFICE/OUTPATI ENT VISIT, [facility], [address] [place], [place], [id number], [place] tel:[phone] [facility] low back pain (chief complaint) Other cervical disc degeneration, unsp cervical regionOther intervertebral disc degeneration, lumbar regionOth specific arthropathies, NEC, oth siteOther senior care (current) drug therapy [address], [place], [place], [id number], [place]. tel:[phone] Referring Provider: Darrel Garcia, [address] [place], [address] . tel:[phone] OFFICE CONSULTATION [facility], [address] [place] [address], [id number], [place] tel:[phone] [facility] low back pain (chief complaint) Other cervical disc degeneration, unsp cervical regionOth specific arthropathies, NEC, oth siteLow back painChronic pain syndromeOther senior care (current) drug therapyOther intervertebral disc degeneration, lumbar region [address], [place], [place], [address], [place]. tel:[phone] Referring Provider: Lavelle Christiansen [address], [place], [address]. tel:[phone] [facility], [address] [facility] [place], [id number], [place] tel:[phone] [facility] [place] No Information 9 Evan Rojo. [address] [facility] [address] [place], [id number], [place]. tel:[phone] Family History Family Member Type Diagnosis Age At Onset No Information Payers Payer name Insurance type Covered libertarian ID Authoriza tiyamini(s) [employer] [id number] Social History Type Description Quantity Date Captured Comments Sex Male Smoking Status No Information Chief Complaint And Reason For Visit No Information Reason For Referral Reason For Referral No Information History Of Present Illness Encounter Date Complaint History Of Prese nt Illness low back pain Severity level i s 4-9. Duration: chronic. The problem is fluctuating. It occurs intermittently. The patient describes the pain as sharp. Symptoms are aggravated by standing, walking and housework. Symptoms are relieved by ice, lying down, massage, pain meds/drugs, physical therapy and TENS. low back pain (comments) Guillermo [...] or concerns. low back pain (comments) Guillermo bliss for [...] further questions or concerns. low back pain Duration: chroni c. The problem is improving. It occurs persistently. The patient describes the pain as an ache. Symptoms are aggravated by bending, lifting, standing, walking and housework. Symptoms are relieved by lying down, massage, physical therapy, stretching, rest, sitting, changing positions and TENS. low back pain (comments) Guillermo krishna ruthy for initial follow up regarding lower back [...] [facility] benefit yet.Guillermo is not accompanied by anyone [...] down, stretching and sitting. low back pain Severity level i s 3-9. Duration: chronic. It occurs persistently. The patient describes the pain as an ache. Symptoms are aggravated by ascending stairs, descending stairs, lifting, standing, walking and housework. Symptoms are relieved by lying down and sitting. low back pain (comments) Guillermo ambrose resents [...] may improve his pain and would like [facility] to resume management of care. He is not accompanied by anyone today and has no further questions or concerns. Functional Status Date Functional Assessmen t No Information Instructions Date Instruction Additional Infor mation No Information Assessments Type Assessment Date No Information Patient Care Teams Name Effective Dates (start - stop) Status Members No Information
--- OUTSIDE RECORDS SUMMARY | 2025-02-13 15:01 | XMS_ITS | Clinical Summary ---
Author Organization [place] Address [address] [facility] [place] [address] Care Team Providers Care Industrial Mechanic Name Role Phone Karen Ibarra Primary Care Provider [phone] Allergies Active AllergyReactionsCriticalityNoted ChhyCokrwrhkYnhqsspduyKfqaf84/20/2018 Medications MedicationSigDispense QuantityRefillsLast FilledStart DateEnd DateStatus TRIAMTERENE-HCTZ 25-37.5 MG OR CAPS 1 OR 2 CAPSULES DAILY 60 ctive VYTORIN 10-40 MG OR TABS 1 TABLET EVERY EVENING 30 ctive METFORMIN HCL 500 MG OR TABS ONE TABLET WITH BREAKFAST AND ONE TABLET WITH DINNER 3 MONTHS ctive SPIRIVA HANDIHALER 18 MCG IN CAPS 1 CAPSULE DAILY 30 ctive DOCUSATE SODIUM PO Take 100 mg by mouth 2 times dailyActive METFORMIN HCL PO Take 1,000 mg by mouth 2 times dailyActive GLIPIZIDE PO Take 10 mg by mouth 2 times dailyActive AMLODIPINE BESYLATE PO Take 10 mg by mouth dailyActive ATOMOXETINE HCL PO Take 100 mg by mouth every morningActive FUROSEMIDE PO Take 20 mg by mouth every morningActive Apixaban (ELIQUIS PO) Take 5 mg by mouth 2 times dailyActive CALCIUM-VITAMIN D PO Take 1 tablet by mouth 2 times dailyActive Pioglitazone HCl (ACTOS PO) Take 30 mg by mouth every morningActive LOSARTAN POTASSIUM PO Take 100 mg by mouth every morningActive CETIRIZINE HCL PO Take 10 mg by mouth every morningActive GABAPENTIN PO Take 900 mg by mouth as neededActive SIMVASTATIN PO Take 40 mg by mouth every eveningActive TRAZODONE HCL PO Take 100 mg by mouth every eveningActive CYCLOBENZAPRINE HCL PO Take 10 mg by mouth every evening as needed for muscle spasmsActive DOXYCYCLINE HYCLATE PO Take 100 mg by mouth 2 times daily Until goneActive insulin detemir (LEVEMIR) 100 UNIT/ML injection Inject 45 Units Subcutaneous 2 times dailyActive TRIAMCINOLONE 0.1%/WHITE PETROLEUM, FV COMPOUNDED, CREAM 2 times dailyActive Acetaminophen (TYLENOL PO) Take 650 mg by mouthActive budesonide-formoterol (SYMBICORT) 160-4.5 MCG/ACT Inhaler Inhale 2 puffs into the lungs 2 times dailyActive ipratropium - albuterol 0.5 mg/2.5 mg/3 mL (DUONEB) 0.5-2.5 (3) MG/3ML neb solution Take 1 vial by nebulization every 6 hours as needed for shortness of breath / dyspnea or wheezingActive Active Problems ProblemNoted DateDiagnosed TtkyEyzamuv03/25/2008OSA (obstructive sleep apnea) 11/09/2007 Overview (11/09/2007): Sleep study 09/20- AHI 12.8, REM AHI 69.5, Supine AHI 14.2, RDI 22.4, Last 88%, PLMI 11, PLMAI 1.1. CPAP 11cm effective REM-lateral. Diabetes mellitus, type 2 Overview (11/15/2014): Dx 2003 Problem list name updated by automated process. Provider to review Hypertension Overview (11/09/2007): Dx 2004 COPD (chronic obstructive pulmonary disease) Overview (11/09/2007): Quit smoking 2002. [id number] years. PFTS 03/24 - FEV1- 1.08 (30%), ratio 0.53 Family History Medical HistoryRelationCommentsUnknown/AdoptedNo family hx of Social History Tobacco UseTypesPacks/DayYears UsedDateSmoking Tobacco: KakcctOdcsfwoooq624 12/15/1966 - 12/15/2002Smokeless Tobacco: NeverAlcohol UseStandard Drinks/Week CommentsNo0 (1 standard drink = 0.6 oz pure alcohol)Sex and Gender Information ValueDate RecordedSex Assigned at BirthNot on fileLegal FsbPedj18/04/2012 4:05 AM CSTGender IdentityNot on fileSexual OrientationNot on fileOccupationIndustry Job Start DateJob End DateQuality Control InspectorNot on fileNot on fileNot on file Last Filed Vital Signs Vital SignReadingTime TakenCommentsBlood Pdayixhq452/72011/04/2017 1:52 PM CDT Zodbl2234/21/2018 1:52 PM ZWZWdgteipwxlh48.2 ??C (97.2 ??F)11/04/2017 11:50 AM CDTRespiratory Ozhp042111/04/2017 1:52 PM CDTOxygen Vkngympqat22%11/04/2017 1:52 PM CDTInhaled Oxygen Concentration--Yljgtk831 kg (251 lb 6.4 oz)11/04/2017 8:57 AM WVIMeiocw237.7 cm (5' 8)11/04/2017 8:57 AM CDTBody Mass Index38.23011/04/2017 8:57 AM CDT Plan of Treatment Not on file Care Teams Team MemberRelationshipSpecialtyStart DateEnd Date Karen Ibarra PCP - GeneralPhysician Assistant10/28/17
--- OUTSIDE RECORDS SUMMARY | 2025-02-13 15:01 | XMS_ITS | Clinical Summary ---
Author Organization [facility] Address [address] [place] [address] Care Team Providers Care Labor Economist Name Role Phone Karen Ibarra Primary Care Provider Eve Yap RN Unavailable Monalisa Meza RN Unavailable [phone] Unavailable Jessica Espinoza RN Unavailable [phone] Lester Morris MD Unavailable Siddhartha Ho DO Unavailable [phone] Karol Pinto PharmD Unavailable [phone] Martha Gottlieb RN Unavailable [phone] Allergies Active AllergyReactionsCriticalityNoted QxjeAkyadechFbbzkfhpmbDhfdq12/05/2010 Medications MedicationSigDispense QuantityRefillsLast FilledStart DateEnd DateStatus oxygen-air delivery systems (HOME OXYGEN) Indications:Chronic obstructive pulmonary disease, unspecified COPD type (HC) Oxygen for home use. Liters per minute: 2 L per nasal cannula with activity and bled into CPAP withsleep. Frequency of use: with activity and sleep. Length of need: 99 Months. 1 Device 08/11/2020ctive lidocaine 5 % topical patch Indications:Type 2 diabetes mellitus with diabetic neuropathy, with long-term current use of insulin (HC)Apply to intact skin to cover most painful area for max 12hr per 24hr period. 30 Patch 9:14 AM CDT2Active Incontinence Pad, Liner, Disp pads Indications:Urinary incontinence, unspecified typeUse the pads 3 times a day as needed. 96 Each 3Active clotrimazole-betamethasone 1%-0.05% cream Indications:BalanitisApply topically to affected area(s) 2 times daily. 45 g 9:56 AM CST4Active disposable insulin pen needle (BD Audelia 2nd Gen Pen Needle) 32 gauge x 5/32 (disposable insulin penneedle) Indications:Controlled type 2 diabetes mellitus without complication, unspecified whether bed bug exterminator insulin use(HC)Use four times daily 400 Each 9:56 AM CST5Active fluticasone (50 mcg per actuation) nasal solution (FLONASE) Indications:Allergic rhinitis due to pollen, unspecified seasonalityInhale 2 Sprays to both nostrils once daily. 48 g 9:56 AM CST5Active Vit B Comp & C-Vit E-FA-Roseanne-Zn (One-A-Day Women's 50 Plus) 0.4 mg tab Indications:Type 2 diabetes mellitus with diabetic neuropathy, with long-term current use of insulin (HC)Take 1 tablet by mouth once daily. 335 Tablet 12/26/2024 11:34 AM CST5Active Diaper,Brief, Adult,Disposable (Depend Real Fit Brief Men L/XL) Indications:Urinary incontinence, unspecified typeFor home use. 96 Each 5Active carvediloL (Coreg) 6.25 mg tablet Indications:Paroxysmal atrial fibrillation (HC),TachycardiaTake 1 Tablet (6.25 mg) by mouth two times daily with meals. 180 Tablet 9:56 AM CST5Active FreeStyle Brendan 3 Plus Sensor for continuous blood glucose monitor (CGM) Indications:Type 2 diabetes mellitus with diabetic neuropathy, with long-term current use of insulin (HC)To be used to read blood sugars, follow technical coordinator directions. Change every 15 days. 6 Each 9:56 AM CST5Active insulin aspart (U-100) (NovoLOG Flexpen U-100 Insulin) 100 unit/mL (3 mL) pen Indications:Type 2 diabetes mellitus with diabetic neuropathy, with long-term current use of insulin (HC)Inject 30-35 units subcutaneous three times daily before meals. Total daily dose of 100 units. 90 mL 11:34 AM CST5Active blood sugar diagnostic (OneTouch Verio test strips) strip Indications:Type 2 diabetes mellitus with diabetic neuropathy, with long-term current use of insulin (HC)Test 1 time/day 100 Each 9:56 AM CST5Active acetaminophen SR (8 Hour Pain Reliever) 650 mg Extended-Release tablet Indications:Chronic bilateral low back pain without sciaticaTake 1 Tablet (650 mg) by mouth every 8 hours. 270 Tablet 4:44 PM CST5Active cyclobenzaprine (FLEXERIL) 10 mg tablet Indications:Chronic bilateral low back pain without sciaticaTake 1 Tablet (10 mg) by mouth at bedtime. 90 Tablet 10:56 AM CDT5Active sodium chloride (Saline Mist) 0.65 % nasal solution Indications:Allergic rhinitis, unspecified seasonality, unspecified trigger Inhale 1 [place] into affected nostril(s) every hour if needed for Nasal Dryness. 45 mL 11103/17/2024 9:56 AM CST5Active clotrimazole (LOTRIMIN) 1 % cream Apply to affected area(s) topically twice daily 60 g 10/11/2024 12:15 PM CDT14Active prednisoLONE acetate 1% ophthalmic (ECONOPRED PLUS, PRED FORTE, OMNIPRED) suspension Instill 1 drop into both eyes prior to OR following Raad mask use twice a day. Do not exceed twice daily use in both eyes 5 mL 9:56 AM CST5Active cetirizine (ZYRTEC) 10 mg tablet Indications:Nasal congestionTake 1 Tablet (10 mg) by mouth once daily. 90 Tablet 10:56 AM CDT5Active CPAP Indications:LUCIEN (obstructive sleep apnea)RESMED CPAP (E0601) machine for home use at pressure: 12 cmw, Choice of mask (A7030 or A7034) w/full face cushion (A7031) x1/mo, nasal cushion (A7032) x2/mo, or nasal pillows (A7033) x 2/mo; Length of Need: 99 months; Frequency of use: Daily 1 Each 5Active cycloSPORINE (RESTASIS) 0.05 % ophthalmic emulsion Instill 1 drop into both eyes twice a day 180 Each 7:00 PM CST5Active apixaban (Eliquis) 5 mg tablet Indications:Paroxysmal atrial fibrillation (HC),Atrial flutter, unspecified type (HC)Take 1 Tablet (5 mg) by mouth two times daily. 180 Tablet 9:56 AM CST5Active rosuvastatin (CRESTOR) 10 mg tablet Indications:Mixed hyperlipidemiaTake 1 Tablet (10 mg) by mouth at bedtime. 90 Tablet 1:46 PM CDT5Active triamcinolone (ARISTOCORT; KENALOG) 0.1 % cream Indications:Skin irritationApply topically to affected area(s) two times daily. 45 g 10/23/2024 10:40 AM CDT5Active doxycycline monohydrate 100 mg capsule Take 1 Capsule (100 mg) by mouth two times daily. 60 Capsule 4:44 PM CST5Active tiotropium bromide (Spiriva Respimat) 2.5 mcg/actuation mist for inhalation Indications:Chronic obstructive pulmonary disease, unspecified COPD type (HC) Inhale 2 Puffs by mouth once daily. 4 g 5Active budesonide-formoteroL (Symbicort) 160-4.5 mcg/actuation (160-4.5 mcg each actuation) inhaler Indications:Chronic obstructive pulmonary disease, unspecified COPD type (HC) Inhale 2 Puffs by mouth two times daily. 30.6 g 5Active albuterol-ipratropium (DUONEB) (2.5 mg-0.5 mg)/3 mL NEBULIZATION solution Indications:Chronic obstructive pulmonary disease, unspecified COPD type (HC) Inhale 3 mL via a nebulizer every 6 hours if needed for Shortness of Breath 1st choice. 720 mL 9:56 AM CST5Active albuterol HFA (PRO-AIR; VENTOLIN; PROVENTIL) 90 mcg/actuation inhaler Indications:Chronic obstructive pulmonary disease, unspecified COPD type (HC) Inhale 2 Puffs by mouth 4 times daily if needed for Shortness of Breath 1st choice. 17 g 9:56 AM CST5Active ensifentrine 3 mg/2.5 mL nbs Indications:Chronic obstructive pulmonary disease, unspecified COPD type (HC) Inhale by mouth. 150 mL 5Active oxygen-air delivery systems (HOME OXYGEN) Indications:Centrilobular emphysema (HC)Oxygen for home use. Liters per minute: 2 pulse at rest, 2 continuous w/activity and bled into CPAPw/ sleep per nasal cannula. Frequency of use: Continuous with portability.;. Length of need: 99 Months. 1 Each 5Active ensifentrine (Ohtuvayre) 3 mg/2.5 mL nbs Indications:Chronic obstructive pulmonary disease, unspecified COPD type (HC) Inhale 3 mg by mouth two times daily. 150 mL 5Active hydrOXYzine HCL (ATARAX) 25 mg tablet Indications:AnxietyTake 1 Tablet (25 mg) by mouth every 6 hours if needed for Anxiety. 90 Tablet 4:44 PM CST5Active lancets (OneTouch Delica Plus Lancet) 33 gauge [facility] Indications:Type 2 diabetes mellitus with diabetic neuropathy, with long-term current use of insulin (HC)Test 1 time/day 100 Each 9:56 AM CST5Active docusate (COLACE) 100 mg capsule Indications:Chronic constipationTake 1 Capsule (100 mg) by mouth 2 times daily if needed for Constipation. 180 Capsule 5Active FLUoxetine (PROZAC) 20 mg capsule Indications:AnxietyTake 1 Capsule (20 mg) by mouth once daily in the morning. 90 Capsule 5Active pramipexole (MIRAPEX) 0.25 mg tablet Indications:Foot crampsTake 1/2 to 2 tablets (0.125-0.5 mg) by mouth at bedtime. 180 Tablet 5Active metFORMIN (GLUCOPHAGE) 500 mg tablet Indications:DM type 2, controlled, with complication (HC)Take 2 Tablets (1,000 mg) by mouth two times daily with meals. 360 Tablet 5Active losartan (COZAAR) 100 mg tablet Indications:Essential hypertensionTake 1 Tablet (100 mg) by mouth once daily. 90 Tablet 5Active gabapentin (NEURONTIN) 300 mg capsule Indications:Restless legs syndrome (RLS),Unspecified inflammatory spondylopathy, cervical regionTake 1 Capsule (300 mg) by mouth two times daily. 180 Capsule 5Active furosemide (LASIX) 40 mg tablet Indications:Bilateral lower extremity edemaTake 1 to 2 tablets (40-80 mg) by mouth once daily in the morning. 90 Tablet 5Active amLODIPine (NORVASC) 10 mg tablet Indications:Essential hypertensionTake 1 Tablet (10 mg) by mouth once daily. 90 Tablet 5Active continuous glucose monitor SENSOR KIT (FreeStyle Brendan 2 Sensor) Indications:Type 2 diabetes mellitus with diabetic neuropathy, with long-term current use of insulin (HC)As directed. Change every 14 days 6 Each 10:06 AM CST/iscontinued(Duplicate therapy (E- cancel not sent)) insulin glargine (U-100) (Lantus Solostar U-100 Insulin) 100 unit/mL (3 mL) pen Indications:Type 2 diabetes mellitus with diabetic neuropathy, unspecified whether bed bug exterminator insulin use (HC)Inject 48 units subcutaneous before bedtime. 60 mL 9:43 AM CDTDiscontinued(*Patient states no longer taking) gabapentin (NEURONTIN) 300 mg capsule Indications:Restless legs syndrome (RLS),Unspecified inflammatory spondylopathy, cervical regionTake 1 Capsule (300 mg) by mouth at bedtime. 90 Capsule 9:56 AM CSTDiscontinued(Reorder (E-cancel not sent)) losartan (COZAAR) 100 mg tablet Indications:Essential hypertensionTake 1 Tablet (100 mg) by mouth once daily. 90 Tablet 7:00 PM CSTDiscontinued(Reorder (E-cancel not sent)) amLODIPine (NORVASC) 10 mg tablet Indications:Essential hypertensionTake 1 Tablet (10 mg) by mouth once daily. 90 Tablet 9:56 AM CSTDiscontinued(Reorder (E-cancel not sent)) pramipexole (MIRAPEX) 0.25 mg tablet Indications:Foot crampsTake one-half to 2 tablets (0.125-0.5 mg) by mouth at bedtime. 180 Tablet 01/02/2025 4:43 PM CSTDiscontinued(Reorder (E-cancel not sent)) furosemide (LASIX) 40 mg tablet Indications:Bilateral lower extremity edemaTake 1 to 2 Tablets (40-80 mg) by mouth once daily in the morning. 90 Tablet 9:56 AM CSTDiscontinued(Reorder (E-cancel not sent)) metFORMIN (GLUCOPHAGE) 500 mg tablet Indications:DM type 2, controlled, with complication (HC)Take 2 Tablets (1,000 mg) by mouth two times daily with meals. 120 Tablet 01/22/2025 4:44 PM CSTDiscontinued(Reorder (E-cancel not sent)) Active Problems ProblemNoted DateDiagnosed DateChronic respiratory failure with hypoxia 5Anemia, chronic qxvynsy7601/04/2024epression, rxmjsoxhz88/26/2024Ulcer of lower extremity, unspecified laterality, unspecified ulcer stage02/16/2023 Chronic venous hypertension (idiopathic) with ulcer and inflammation of bilateral lower avwgdefzo03/03/2024Unspecified inflammatory spondylopathy, cervical baemps12/08/2020Chronic arqljuyn94/10/2020OSA 10/05/2006 AHI/RDI:13 (70 in REM sleep)10/24/2017ASHD (arteriosclerotic heart disease)09/20/2017Paroxysmal atrial uoomaynzovlv29/07/2018Active advance hpkpjdaad85/21/2018 Overview (07/04/2017): See scan from 02/03/17. Sulqtdnsox11/03/2018Abnormal stress test02/10/2017 Overview (02/10/2017): -Stress Myoview 01/18/2017 Small area of moderate ischemia in the apex and apical interior wall EF 69% Acquired stenosis of lacrimal punctum of both sides05/20/2015Blepharitis of both eyes05/20/2015Lumbar facet mbwnzxjmsyf89/09/2016Type 2 diabetes mellitus with diabetic axreoylwqe05/24/2015Midline low back pain without hosyyowi19/16/2015 Pain medication kmheaawgn38/17/2015 Overview (11/23/2024): Diagnosis Code replaced due to regulatory update COPD, group B, by GOLD 2017 zdjjjprhmccoxf87/29/2015djustment disorder with mixed anxiety and depressed mood10/03/2013trial tjdvvye1009/02/2013 Overview (03/15/2014): S/p cavotricuspid isthmus flutter ablation by Dr Flanagan 03/14/2014 ADD (attention deficit disorder)07/28/2010Restless legs syndrome (RLS)10/08/2009 Morbid fkxoyfc9409/27/20077746Vfnavufmajkd73/27/7419Flskmzxlebxmxp63/01/2007NASH (nonalcoholic steatohepatitis)03/17/2006 Resolved Problems ProblemNoted DateDiagnosed DateResolved OiiiZgzumjn102OSA 10/05/2006 AHI-13 (increased in REM-70)DM2 (diabetes mellitus, type 2)OSA (obstructive sleep apnea)06/30/2011 2ADD (attention deficit disorder)Unspecified sleep apnea/09/20123994Schamdf942DECONDITIONING SYNDROME Chronic airway obstruction, not elsewhere classified Overview (09/27/2007): Severe emphysema Depressive disorder, not elsewhere dnophehrsf24Type II or unspecified type diabetes mellitus without mention of complication, not stated as ewpxbobkxirq92 Encounters DateTypeDepartmentCare DdvvYgznxexzhug72/31/7175Ettaxb58/29/2025Refill [facility] [address] [place] [address] Pravin Coley, [facility] Refill Request (Flexeril)01/25/2025 2:40 PM CSTOffice Visit [facility] [address] [place] [address] Karen Ibarra PA Medicare ANNUAL (subsequent) Visit (75 years old)01/25/20259970Mmaioy99/10/2025 Fhhrag4501/21/20257219Fjilnu68/03/2025 3:05 PM CSTOffice Visit [facility] [address] [place] [address] Brian Parker MD Pain (left shoulder for a while)01/16/20254632Lcdiqs87/28/2349Iziddt82/28/2025Refill [facility] [address] [place] [address] Lester Morris MD Refill Request (lancets )01/11/2025Refill [facility] [address] [place] [address] Karen Ibarra PA Refill Request (colace, prozac, Metformin, mirapex )01/03/2025Refill [facility] [address] [place] [address] Karen Ibarra PA Refill Request (Lasix)01/02/2025Refill [facility] [address] [place] [address] Karen Ibarra PA Refill Request (Hydroxyzine)12/31/2024Refill [facility] [address] [place] [address] Karen Ibarra PA Refill Request (pramipexole (MIRAPEX) 0.25 mg tablet)12/20/2024 3:45 PM SENIOR PLANNER Office Visit [facility] [address] [place], [place] [id number] Siddhartha Ho, Follow Up (COPD)12/20/2024Telephone [facility] [address] [facility] [address] [place] [phone] Siddhartha Ho, DO Ohtuvayre start (Patient forms)12/20/20242722Emrrec75/01/3342Ccxlbi08/31/2025 1:40 PM CDTOffice Visit [facility] [address] [place] [address] Karen Ibarra PA Breathing Problem (Would like some prednisone); Leg Pain/problem (Red, swollen, blisters); Concerns(Discuss getting a power chair)12/14/20245954Qjoqex25/30/2025 Telephone [facility] [address] [place] [phone] Martha Gottlieb RN Diabetes (Reschedule pump training)12/11/2024 2:06 PM CDT - 12/11/2024 11:59 PM CDTHospital Encounter [facility] [address] [place] [address] Karen Ibarra PA Burns, Kayla Ann, OT Chronic respiratory failure with hypoxia (HC); Chronic venous hypertension (idiopathic) with ulcer and inflammation of bilateral lower extremity (HC); Chronic midline low back pain without sciatica; Ulcer of lower extremity, unspecified laterality, unspecified ulcer stage (HC); Unspecified inflammatory spondylopathy, cervical fnxkch6412/11/2024Travel 12/09/20241180Hxmarj12/21/2025Orders Only [facility] Scanner 1 scan: (1-Ord) [facility], [place], 11:45 AM CDTOrders Only [facility] [address] [place] [address] Lab, [place] [facility]11/26/20245154Snvpza29/08/6455Imiezm11/02/2025Telephone [facility] [address] [facility] [address] [place] [address] Lester Morris MD addendum (Insulin Injections)from Last 3 Months Immunizations ImmunizationAdministration DatesNext DueCOVID-19 VACCINE SPIKEVAX (MODERNA 50MCG/0.5ML) 12YO+ PFS4COVID-19 vaccine (Moderna 100mcg/0.5mL) PF, MDV 06/17/2021,01/12/2021,05/01/2020,1COVID-19 vaccine (Moderna 50mcg/0.5mL) 12YO+ BIVALENT PF, MDV102/18/2021Influenza, High-dose Inactivated 11/14/2023Influenza, High-dose Quadrivalent Jdhplwscbnb77/25/2023,12/25/2021 Influenza, Inactivated IIV3 (Age 65+ Years) Preserv Free11/01/2024RSV, Bivalent Vaccine Reconstituted (Abrysvo 120MCG/0.5mL)12/18/2022 Family History Medical HistoryRelationNameCommentsBlindnessBrother 3TeddyDiabetesBrother 3Teddy Heart attackFatherUnknownMotherdied postopRelationNameStatusCommentsBrother 1 BobbyAliveBrother 2AliveBrother 3TeddyDeceasedFatherDeceasedMotherDeceasedSister 1AliveSister 2Alive Social History Tobacco UseTypesPacks/DayYears UsedDateSmoking Tobacco: XahhurAhooqkdgcc360.8 1966 - 12/15/2002Smokeless Tobacco: Never Tobacco Cessation:Counseling Given: Yes Comments:3-5 ppd once Alcohol UseStandard Drinks/WeekCommentsNo0 (1 standard drink = 0.6 oz pure alcohol)haven't had any since 1998PHQ-2AnswerDate RecordedPHQ-2 TOTAL SCORE2 01/25/2025Social ConnectionsAnswerDate RecordedDo you often feel lonely or isolated from those around you?lcohol UseAnswerDate RecordedHow often do you have a drink containing alcohol?verage Number of Drinks Not on file01/16/2025How often do you have five or more drinks on one occasion?0 01/16/2025Financial Resource StrainAnswerDate RecordedDifficulty of Paying Living Beepyuvv407/07/2025Difficulty of Paying Living ExpensesNot on file 08/20/2024Food InsecurityAnswerDate RecordedDo you worry your food will run out before you are able to buy more?Transportation NeedsAnswerDate RecordedDoes lack of transportation keep you from medical appointments?1 08/20/2024Does lack of transportation keep you from work, meetings or getting things that you need?Housing StabilityAnswerDate RecordedWhat is your housing situation today?Interpersonal SafetyAnswerDate RecordedAre you being hit, kicked, pushed or yelled at (see row info)?No11/14/2023 Interpersonal Safety Abuse 12 - 18Not on file11/14/2023Interpersonal Safety Ambulatory VulnerabilityNot on file11/14/2023UtilitiesAnswerDate RecordedDo you have trouble paying for utilities (for example, heat, electricity, water, phone)?Sex and Gender InformationValueDate RecordedSex Assigned at UccwkDkjr94/12/2020 6:55 PM CDTLegal GoxTbwr5902/28/2012 5:43 AM CSTGender BjnonrhiDppb08/12/2020 6:55 PM CDTSexual UhvheoefugpUwlegywc20/12/2020 6:55 PM CDT Last Filed Vital Signs Vital SignReadingTime TakenCommentsBlood Ocujmdrc283/7101/25/2025 2:41 PM SENIOR PLANNER Abuxv631501/25/2025 2:41 PM QARCgjeaoryasz27.6 ??C (97.9 ??F)09/06/2023 11:04 AM CDTRespiratory Meiy967802/20/2024 3:54 PM CSTOxygen Dttazvajch49%01/25/2025 2:41 PM CSTInhaled Oxygen Concentration--Tcummk613.1 kg (256 lb)01/25/2025 2:41 PM ODLZowyau879.2 cm (5' 7)01/25/2025 2:41 PM CSTBody Mass Index40. 2:41 PM SENIOR PLANNER Plan of Treatment DateTypeDepartmentCare Team (Latest Contact Info)Iusnmxttdlx53/05/2026 2:40 PM CSTTelemedicine [facility] [address] [place] [address] Brian Parker MD [address] [place] [address] 02/19/2025 3:00 PM CSTPatient Outreach [facility] [address] [place] [address] Martha Gottlieb, RN [address] [place] [address] 03/04/2025 2:00 PM CSTAncillary Procedure [facility] [address] [place] [address] Health MaintenanceDue DateLast DoneCommentsTetanus xxokwmn0901/03/1963Pneumococcal series for age 50+ (1 of 2 - PCV)01/03/1971Zoster (shingles) series for age 50+ (1 of 2)01/03/2002COVID-19 vaccine series (2024- season)2025 10/18/2024, 11/07/2023, 05/16/2023, Additional history existsBMI (ht and wt on same day) for age 18+, 01/16/2025, 12/20/2024, Additional history existsDepression screening for age 12+, 01/19/2024, 01/13/2024, Additional history existsMedicare Wellness for age 65+01/26/2026 01/25/2025, 10/10/2023, 09/08/2022, Additional history existsFecal testing sDNA- FIT (Cologuard) for age 45-75Lipids for age 45-75005/15/2028 05/16/2023, 05/25/2022, 10/28/2021, Additional history existsHepatitis C screening for age 18-99Oxoztfzqt80/23/2018AAA screening age 65-74Completed 10/15/2022RSV vaccine for adults or jbijfkehkFivlhyndv09/04/2023Influenza YyypepkSjeqaxbst05/18/2025, 11/14/2023Hepatitis B series for 19+Aged OutNo longer eligible based on patient's age to complete this topic Goals GoalPatient Goal TypeAssociated ProblemsRecent ProgressPatient-Stated?Author BLOOD PRESSURE - MAINTAINS BP less than 140/90 Blood PressureNoMoore, Hailee Manzano MD Procedures Procedure NamePriorityDate/TimeAssociated DiagnosisCommentsSDNA-FIT EXTERNAL (COLOGUARD)Albxdcy4912/26/2024 8:00 PM SENIOR PLANNER Screening for colon cancer BASIC METABOLIC LUQYTDjzhzbj84/31/2025 2:36 PM CDT Bilateral lower extremity edema SCAN-EYE EXAM12/04/2024 12:00 AM CDT HEMOGLOBIN L9AUtcwvbf30/13/2025 11:45 AM CDT Type 2 diabetes mellitus with diabetic neuropathy, with long-term current use of insulin (HC) LIPID PANEL W REFLEX MEASURED TBNBroepeh60/01/2024 3:27 PM CDT Mixed hyperlipidemia US ABD AORTA LZNONRCMWKdiyqcj25/01/2023 9:54 AM CDT Encounter for abdominal aortic aneurysm (AAA) screening ANTI GJQUzfpazg61/23/2018 3:48 PM SENIOR PLANNER Encounter for hepatitis C screening test for low risk patient from Last 3 Months or Most Recently Relevant to Health Maintenance Results * SDNA-FIT EXTERNAL (COLOGUARD) (12/26/2024 8:00 PM SENIOR PLANNER)ComponentValueRef Range Test MethodAnalysis TimePerformed AtPathologist SignatureNONINV COLON CA DNA+OCC BLD SCRN STL-ZIFTmaouiyxUxdlsdjp84/18/2025 10:20 AM CSTEXCrovat (CLIA #:[id number])Comment: The Cologuard (TM) test was performed on this specimen. NEGATIVE TEST RESULT. A negative Cologuard result indicates a low likelihood that a colorectal cancer (CRC) or advanced adenoma (adenomatous polyps with more advanced pre-malignant features) is present. The chance that a person with a negative Cologuard test has a colorectal cancer is less than 1 in 1500 (negative predictive value >99.9%) or has an advanced adenoma is less than 5.3% (negative predictive value 94.7%). These data are based on a prospective cross-sectional study of 10,000 individuals at average risk for colorectal cancer who were screened with both Cologuard and colonoscopy. (Burt An et al, N Engl J Med 2014;370(14):1974-5445) The normal value (reference range) for this assay is negative. COLOGUARD RE-SCREENING RECOMMENDATION: Periodic colorectal cancer screening is an important part ofpreventive healthcare for asymptomatic individuals at average risk for colorectal cancer. Followinga negative Cologuard result, the [place] [employer] Society and U.S. Multi-Society Task Force screening guidelines recommend a Cologuard re-screening interval of 3 years. References: [place] [employer] Guideline for Colorectal Cancer Screening: https://www.cancer.or g/cancer/abept-kmoxch-jtcpqp/hcnhltubh-kdajmtqpi-wxbuqxj/acs-recommendations.htm alexis VALLADARES, Anuradha RODRIGEZ, Darnell GarciaK, Colorectal Cancer Screening: Recommendations for Physicians and Patients from the U.S. Multi-Society Task Force on Colorectal Cancer Screening , Am J Gastroenterology 2017; 112:9422-6787. TEST DESCRIPTION: Composite algorithmic analysis of stool DNA-biomarkers with hemoglobin immunoassay. ?? Quantitative values of individual biomarkers are not reportable and are not associated with individual biomarker result reference ranges. Cologuard is intended for colorectal cancer screening ofadults of either sex, 45 years or older, who are at average-risk for colorectal cancer (CRC). Cologuard has been approved for use by the U.S. FDA. The performance of Cologuard was established in a cross sectional study of average-risk adults aged 50-84. Cologuard performance in patients ages 45 to 49 years was estimated by sub-group analysis of near-age groups. Colonoscopies performed for a positive result may find as the most clinically significant lesion: colorectal cancer [4.0%], advanced adenoma (including sessile serrated polyps greater than or equal to 1cm diameter) [20%] or non- advanced adenoma [31%]; or no colorectal neoplasia [45%]. These estimates are derived from a prospective cross-sectional screening study of 10,000 individuals at average risk for colorectal cancer who were screened with both Cologuard and colonoscopy. (Burt Graham al, N Engl J Med 2014;370(14):8443-3709.) Cologuard may produce a false negative or false positive result (no colorectal cancer or precancerous polyp present at colonoscopy follow up). A negative Cologuard test result does not guarantee the absence of CRC or advanced adenoma (pre-cancer). The current Cologuard screening interval is every 3 years. ([place] [employer] and U.S. Multi-Society Task Force). Cologuard performance data in a 10,000 patient pivotal study using colonoscopy as the reference method can be accessed at the following location: www.Nanosys.Provade/results. Additional description of the Cologuard test process, warnings and precautions can be found at www.Differential Dynamicsrd.com. Specimen (Source)Anatomical Location / LateralityCollection Method / Volume Collection TimeReceived TimeStool specimen (specimen) (Rectum)12/26/2024 8:00 PM CST12/28/2024 8:42 AM SENIOR PLANNER Narrative Authorizing ProviderResult TypeResult StatusBridget Montserrat ESQUIVELURINEFinal ResultPerforming OrganizationAddressCity/State/ZIP CodePhone Number [employer] (CLIA #:[id number]) [address] [place] [address], * (ABNORMAL) BASIC METABOLIC PANEL (12/14/2024 2:36 PM CDT)ComponentValueRef RangeTest MethodAnalysis TimePerformed AtPathologist LterwtskrVBUSCM633148 - 146 mmol/L102/15/2024 6:33 AM CDTQUEST DIAGNOSTICSPOTASSIUM4.73.5 - 5.3 mmol/L 12/15/2024 6:33 AM CDTQUEST DIAGNOSTICSCARBON GFYNQPZ60(H)20 - 32 mmol/L 12/15/2024 6:33 AM CDTQUEST TYZPDHEVOBECYUEODT800(H)65 - 99 mg/dL12/15/2024 6:33 AM CDTQUEST DIAGNOSTICSComment: ? Fasting reference interval For someone without known diabetes, a glucose value >125 mg/dL indicates that they may have diabetes and this should be confirmed with a follow-up test. CALCIUM9.58.6 - 10.3 mg/dL12/15/2024 6:33 AM CDTQUEST DIAGNOSTICSCREATININE0.94 0.70 - 1.28 mg/dL12/15/2024 6:33 AM CDTQUEST DIAGNOSTICSBUN/CREATININE RATIOSEE NOTE:6 - 22 (calc)12/15/2024 6:33 AM CDTQUEST DIAGNOSTICSComment: ?? Not Reported: BUN and Creatinine are within ?? reference range. ? EGFR86> OR = 60 mL/min/1.19r67212/15/2024 6:33 AM CDTQUEST DIAGNOSTICSUREA NITROGEN (BUN)177 - 25 mg/dL12/15/2024 6:33 AM CDTQUEST DIAGNOSTICSELECTROLYTE HVEYILB71 - 17 mmol/L (calc)12/15/2024 6:33 AM CDTQUEST XZERLZUDHVPEDBIANEK5281 - 110 mmol/L102/15/2024 6:33 AM CDTQUEST DIAGNOSTICSSpecimen (Source)Anatomical Location / LateralityCollection Method / VolumeCollection TimeReceived TimeBlood BLOOD SPECIMEN / UnknownQuest Collect / Furnhxq1212/14/2024 2:36 PM CDT1 2:36 PM CDT Narrative Authorizing ProviderResult TypeResult StatusBridgelidia Montserrat Ibarra PACHEMISTRY Final ResultPerforming OrganizationAddressCity/State/ZIP CodePhone Number [facility] [address] [place] [phone], [place] [phone] * SCAN-EYE EXAM (12/04/2024 12:00 AM CDT) Narrative Authorizing ProviderResult TypeResult StatusScannerOTHERFinal Result * (ABNORMAL) HEMOGLOBIN A1C (11/26/2024 11:45 AM CDT)ComponentValueRef RangeTest MethodAnalysis TimePerformed AtPathologist SignatureHEMOGLOBIN A1C8.6(H)<5.7 %11/27/2024 3:33 AM CDTQUEST DIAGNOSTICSComment: For someone without known diabetes, a hemoglobin A1c value of 6.5% or greater indicates that they may have diabetes and this should be confirmed with a follow-up test. For someone with known diabetes, a value <7% indicates that their diabetes is well controlled and a value greater than or equal to 7% indicates suboptimal control. A1c targets should be individualized based on duration of diabetes, age, comorbid conditions, and other considerations. Currently, no consensus exists regarding use of hemoglobin A1c for diagnosis of diabetes for children. ?? Specimen (Source)Anatomical Location / LateralityCollection Method / Volume Collection TimeReceived TimeBloodBLOOD SPECIMEN / UnknownQuest Collect / Unknown 11/26/2024 11:45 AM CDT1 11:45 AM CDT Narrative Authorizing ProviderResult TypeResult StatusLester Morris MDCHEMISTRY Final ResultPerforming OrganizationAddressCity/State/ZIP CodePhone Number [facility] [address] [place] [address], [place] [phone] * (ABNORMAL) LIPID PANEL W REFLEX MEASURED LDL (05/16/2023 3:27 PM CDT)Component ValueRef RangeTest MethodAnalysis TimePerformed AtPathologist Signature CHOLESTEROL,HPUHX369307 - 199 mg/dL05/16/2023 9:24 PM [facility]-CENTRAL LABORATORYComment: Cholesterol, Total Reference Ranges Desirable <200 mg/dL Borderline 200-239 mg/dL High >=240 mg/dL VFDJJVEDAPFEN25<150 mg/dL05/16/2023 9:24 PM [facility]-CENTRAL LABORATORYHDL MZVCBXNXTRW78(L)>40 mg/dL05/16/2023 9:[address] [facility]-CENTRAL LABORATORYNON-HDL LKAGDBEXHZV93<145 mg/dl05/16/2023 9:[address] [facility]-CENTRAL LABORATORYCHOL/HDL RATIO2.68<4.50005/16/2023 9:[address] [facility]-CENTRAL LABORATORYLDL DNDQSHZPTWB83<=130 mg/dL05/16/2023 9:24 PM [facility] LABORATORYVLDL WCMFBXLZJRU02<=30 mg/dL05/16/2023 9:24 PM [facility] LABORATORYPROVIDER ORDERED KISJQQJCQMDZ50/01/2024 9:24 PM [facility]ENTRAL LABORATORYSpecimen (Source)Anatomical Location / Laterality Collection Method / VolumeCollection TimeReceived TimeBloodBLOOD SPECIMEN / UnknownVenipuncture / Iaogrpj2705/16/2023 3:27 PM CDT05/16/2023 3:28 PM CDT Narrative Authorizing ProviderResult TypeResult StatusBridget Montserrat Ibarra PACHEMISTRY Final ResultPerforming OrganizationAddressCity/State/ZIP CodePhone Number [facility] [address] [place] [address], [place] * US ABD AORTA SCREENING (10/15/2022 9:54 AM CDT)Anatomical RegionLaterality ModalityAbdomen, AORTAUltrasoundSpecimen (Source)Anatomical Location / LateralityCollection Method / VolumeCollection TimeReceived Time10/15/2022 10:59 AM CDT Narrative 10/15/2022 10:59 AM CDT For Patients: As a result of the Century Cures Act, medical imaging exams and [...] MD @ Sep 2022 10:59AM (Electronically Signed) Authorizing ProviderResult TypeResult StatusSenthil Pipe Koo MDUSFinal Result * ANTI HCV (04/08/2017 3:48 PM SENIOR PLANNER)ComponentValueRef RangeTest MethodAnalysis TimePerformed AtPathologist SignatureHEPATITIS C ANTIBODYNon-Reactive Non-Dcvsysbx05/24/2018 4:26 PM CSTCAR[facility] Specimen (Source)Anatomical Location / LateralityCollection Method / Volume Collection TimeReceived TimeBloodBLOOD SPECIMEN / UnknownButterfly / Unknown 04/08/2017 3:48 PM CST04/08/2017 3:48 PM SENIOR PLANNER Narrative [facility] - 04/09/2017 4:26 PM SENIOR PLANNER Antibodies to HCV not detected; does not exclude the possibility of exposure to HCV. Authorizing ProviderResult TypeResult StatusBridget Montserrat MAST OUTS Final ResultPerforming OrganizationAddressCity/State/ZIP CodePhone Number [facility] [address] [place] [address], from Last 3 Months or Most Recently Relevant to Health Maintenance Insurance * Guarantor: Lida Allenunt TypeRelation to PatientDate of BirthPhone Billing AddressPersonal/HmrdswJgtu1950 [phone] [place] [address] * Guarantor: Lida Allen TypeRelation to PatientDate of BirthPhone Billing AddressPersonal/QibpivCwry1950 [phone] [place] [address] * Guarantor: Lida Allenmilesbety TypeRelation to PatientDate of BirthPhone Billing AddressWorkers EvpmVmad1950 [address] [place] [address] Advance Directives TypeDate RecordedPatient RepresentativeExplanationHealthcare Srfqtgxsc85/21/2017 9:44 AMST[facility], [facility] * Full Code (Latest Code Status on File) Date ActivatedDate InactivatedComments10/19/2018 7:08 AM10/19/2018 1:17 PM * Full Code Date ActivatedDate DfvrzspnexkRthyncgd32/28/2017 7:38 AM02/11/2017 1:54 PM QuestionAnswerCommentsCode Status Discussion:* Not Discussed * Full Code Date ActivatedDate InactivatedComments03/14/2014 6:23 AM03/15/2014 1:45 PM * Full Code Date ActivatedDate InactivatedComments03/01/2014 9:12 PM03/04/2014 2:38 PM * Full Code Date ActivatedDate InactivatedComments09/03/2013 1:23 PM09/04/2013 12:34 PM Care Teams Team MemberRelationshipSpecialtyStart DateEnd Date Karen Ibarra PA [address] [place] [address] PCP - GeneralFamily Practice06/09/10 Eve Yap, RN [address] [address] Director Of Loss Prevention - Genevive MSHORegistered Nurse12/15/16 Monalisa Meza, RN [address] [address] Director Of Loss Prevention - [facility]istered Nurse12/15/[address] [place] [phone] Diabetes EducatorRegistered Dietician07/30/20 Jessica Espinoza RN [address] [address] Director Of Loss Prevention - [facility]egistered Nurse12/05/20 Lester Morris MD [address] [facility] [address] [place] [address] Endocrinology09/09/21 Siddhartha Ho DO [address] [address] Pulmonary Medicine09/09/21 Karol Pinto, PharmD Pharmacist Medication ManagementPharmacology2/ Martha Gottlieb, [place]ARR[place] [address] [place] [address] Diabetes Educator07/24/24
--- OUTSIDE RECORDS SUMMARY | 2025-02-13 15:01 | XMS_ITS | Clinical Summary ---
Author Organization [facility] Address [address] [address] Phone Care Team Providers Care Neonatal Surgeon Name Role Phone Unavailable Primary Care Provider Unavailabl e Allergies Active AllergyReactionsCriticalityNoted BdsdXzdcgoffMjvofluedwPvhaw82/16/2019 Immunizations ImmunizationAdministration DatesNext DueCOVID-19 mRNA Vaccine (Moderna - 18+ Yrs)06/17/2021,01/12/2021,05/01/2020,03/31/2020 Social History Tobacco UseTypesPacks/DayYears UsedDateSmoking Tobacco: Never AssessedSex and Gender InformationValueDate RecordedSex Assigned at BirthNot on fileLegal Sex Male09/29/2018 7:46 PM CDTGender IdentityNot on fileSexual OrientationNot on file Last Filed Vital Signs Vital SignReadingTime TakenCommentsBlood Jqjejtdj266/9109/29/2018 9:04 PM CDT Kslgz616309/29/2018 9:04 PM SGAYbgwuxulmkv86.3 ??C (97.3 ??F)09/29/2018 9:04 PM CDTRespiratory Ugfk155409/29/2018 9:04 PM CDTOxygen Vlrcvyqdxu83%09/29/2018 9:04 PM CDTInhaled Oxygen Concentration--Dstwfl815.1 kg (267 lb)09/29/2018 9:04 PM FKMYqtsyv457.7 cm (5' 8)09/29/2018 9:04 PM CDTBody Mass Index40.608 9:04 PM CDT Plan of Treatment Health MaintenanceDue DateLast DoneCommentsCT Mcjymtvtactb1952Cologuard 8689Zgebtipprrb1952Colorectal Cancer Screening (consider Cologuard where access is limited)1950FIT/FOBT3726Gfqwfdfhldght1950 PERTUSSIS (Standing Order)01/03/1971TETANUS (Standing Order)01/03/1971 Pneumococcal Vaccine: 50+ yrs (Standing Order) (1 of 1 - PCV)01/03/2002Shingrix (Zoster recombinant) vaccine (Standing Order) (1 of 2)01/03/2002COVID-19 Vaccine ( season)/05/2021, 01/12/2021, 05/01/2020, Additional history existsInfluenza Vaccine Seasonal (Standing Order) (#1)10/15/2024RSV Vaccination (60+ yrs) (Abrysvo/Arexvy) (1 - 1-dose 75+ series)01/03/2027HPV Vaccine (Standing Order) (No Doses Required)CompletedHepatitis B Vaccine (Standing Order)Aged OutNo longer eligible based on patient's age to complete this topic
--- OUTSIDE RECORDS SUMMARY | 2025-02-13 15:01 | XMS_ITS | Data Portability ---
Author Organization [facility], [facility] Address [address] [facility] [address] [place] [address] Care Team Providers Care Tension Worker Name Role Phone MASONCHARIMAXIMO Primary Care Provider [phone] Assessment No assessment recorded. Plan of Treatment Reminders Order DateSubmit DateProviderLast Modified ByOrganization DetailsLast Modified TimeDetailsAppointmentsNone recorded.LabNone recorded.ReferralNone recorded. ProceduresNone recorded.SurgeriesNone recorded.ImagingNone recorded.Medication OrdersNone recorded. Patient TargetsNo targets recorded. Patient InstructionsNo instructions recorded. Reason for Referral None Reported. 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 William Zimmerman MD [address] [place] [address],[address], [phone], [facility] Gbcrsvu33/11/2024 17:29:47Stenosis of urinary pzerii071146499 Wmwbph5912/26/2023William Zimmerman MD [address] [place] [address],[address], [address], [facility] Cbwecsy06/11/2024 17:29:59Urinary tract infectious disease 52357199Tjrtwx79/11/2024William Zimmerman MD [address] [place] [address],[address], [address], [facility] Mprwgek06/11/2024 17:30:90Yxbtgbkiq91662062Dynucd07/11/2024 William Zimmerman MD [address] [place] [address],[address] [place], [address], [facility] Hrsotse68/11/2024 17:30:09 Problem Notes None recorded. Procedures Surgical History Date Name Laterality Status Provider Name and Address Organization Details Recorded Time 12/26/2023 Bladder Scan completedWilliam Zimmerman MD [address] [facility],[address], [place], [address], [facility] Fwjvwxm88/11/2024 16:17:43 Imaging Results None recorded. Procedure Notes None recorded. Medical Equipment None Reported. Medications Name Sig Start Date Stop Date Status Note LastModified by Organization Details LastModified Time cyclobenzaprine 10 mg tablet activeNot AvailableNot AvailableNot Availablefurosemide 40 mg tabletactiveNot AvailableNot AvailableNot Availablemetolazone 2.5 mg tabletTake one tablet BY MOUTH now*activeNot AvailableNot AvailableNot Availablemetformin 500 mg tablet activeNot AvailableNot AvailableNot Availablecarvedilol 6.25 mg tabletactiveNot AvailableNot AvailableNot Availableprednisone 10 mg tablettake 4 tablets by mouth once daily in the morning with breakfast for 3 days, then 3 tabs daily for 3 days, then 2 tablets daily for 3 days, then 1 tablet daily for 3 days.* 4completedNot AvailableNot AvailableNot Availableipratropium 0.5 mg- albuterol 3 mg (2.5 mg base)/3 mL nebulization solnactiveNot AvailableNot AvailableNot Availablecetirizine 10 mg tabletactiveNot AvailableNot AvailableNot Availableprednisone 20 mg tabletTAKE ONE TABLET BY MOUTH TWICE DAILY for 5 days* activeNot AvailableNot AvailableNot Availablelevofloxacin 250 mg tabletTAKE ONE TABLET BY MOUTH ONE TIME DAILY BEFORE MEALS*activeNot AvailableNot AvailableNot Availablesulfamethoxazole 800 mg-trimethoprim 160 mg tabletTAKE ONE TABLET BY MOUTH TWICE DAILY*4completedNot AvailableNot AvailableNot Available triamcinolone acetonide 0.1 % topical creamactiveNot AvailableNot AvailableNot Availableacetaminophen ER 650 mg tablet,extended releaseactiveNot AvailableNot AvailableNot Availableketorolac 0.5 % eye dropsinstill 1 drop into both eyes by ophthalmic route no more than 4 times per day*activeNot AvailableNot Available Not Availableprednisolone acetate 1 % eye drops,suspensionINSTILL 1 DROP INTO LEFT EYE 2 TIMES PER DAY FOR 2 MORE WEEKS, THEN STOP; SHAKE BEFORE USE*activeNot AvailableNot AvailableNot Availableamlodipine 10 mg tabletactiveNot AvailableNot AvailableNot Availabledoxycycline monohydrate 100 mg capsuleTAKE ONE CAPSULE BY MOUTH TWICE DAILY FOR 7 DAYS*4completedNot AvailableNot AvailableNot Availablecephalexin 500 mg capsuleTAKE 1 CAPSULE BY MOUTH TWICE DAILY FOR 10 DAYS*12/26/2023ompletedNot AvailableNot AvailableNot Availablefluoxetine 10 mg capsuleactiveNot AvailableNot AvailableNot Availabledocusate sodium 100 mg capsuleactiveNot AvailableNot AvailableNot Availablepramipexole 0.25 mg tablet activeNot AvailableNot AvailableNot Availablegabapentin 300 mg capsuleactiveNot AvailableNot AvailableNot Availablehydroxyzine HCl 25 mg tabletTAKE ONE TABLET BY MOUTH EVERY SIX HOURS NEEDED FOR ITCHING*activeNot AvailableNot Available Not Availablealbuterol sulfate HFA 90 mcg/actuation aerosol inhaleractiveNot AvailableNot AvailableNot Availablelosartan 100 mg tabletactiveNot AvailableNot AvailableNot Availablefluoxetine 20 mg capsuleactiveNot AvailableNot Available Not Availablefluticasone propionate 50 mcg/actuation nasal spray,suspension activeNot AvailableNot AvailableNot Availableclotrimazole 1 % topical creamAPPLY TO AFFECTED AREA(S) BY TOPICAL ROUTE TWICE DAILY.*activeNot AvailableNot AvailableNot Availabledoxycycline hyclate 100 mg tabletTake 1 Tablet (100 mg) by mouth two times daily before meals for 7 days.*12/26/2023ompletedNot Available Not AvailableNot Availableatomoxetine 40 mg capsuletake 2 capsules by mouth daily for 2 weeks then decrease to 1 capsule daily for 2 weeks*activeNot AvailableNot AvailableNot AvailableNovolog FlexPen U-100 Insulin aspart 100 unit/mL (3 mL) subcutaneousINJECT 30 - 35 UNITS SUBCUTANEOUSLY THREE TIMES DAILY BEFORE MEALS. TOTAL DAILY DOSE OF 100 UNITS.*activeNot AvailableNot AvailableNot Availablecyclosporine 0.05 % eye drops in a dropperetteactiveNot AvailableNot AvailableNot Availablerosuvastatin 10 mg tabletactiveNot AvailableNot Available Not Availablenitrofurantoin monohydrate/macrocrystals 100 mg capsuleTAKE ONE CAPSULE BY MOUTH TWICE DAILY FOR 5 DAYS*12/26/2023ompletedNot AvailableNot AvailableNot Availableatomoxetine 100 mg capsuleactiveNot AvailableNot Available Not Availablebudesonide-formoterol HFA 160 mcg-4.5 mcg/actuation aerosol inhaler activeNot AvailableNot AvailableNot AvailableLantus Solostar U-100 Insulin 100 unit/mL (3 mL) subcutaneous penactiveNot AvailableNot AvailableNot Available Systane Nighttime 94 %-3 % eye ointmentAPPLY A SMALL AMOUNT INSIDE LOWER EYELIDS OF BOTH EYES ONCE DAILY AT BEDTIME.*activeNot AvailableNot AvailableNot AvailableOneTouch Verio test stripsactiveNot AvailableNot AvailableNot Available InnoSpire Essence deviceNEBULIZER, DISPOSABLE NEB KIT X 4, REUSEABLE NEB KIT X 1, MASK X 1, FILTERS X 1. FREQUENCY OF USE: DAILY;activeNot AvailableNot AvailableNot AvailableEliquis 5 mg tabletactiveNot AvailableNot AvailableNot AvailableSpiriva Respimat 2.5 mcg/actuation solution for inhalationactiveNot AvailableNot AvailableNot AvailableOneTouch Verio Flex MeteractiveNot Available Not AvailableNot AvailableBD Audelia 2nd Gen Pen Needle 32 gauge x 5/32activeNot AvailableNot AvailableNot AvailableOneTouch Delica Plus Lancet 33 gaugeactiveNot AvailableNot AvailableNot AvailableFreeStyle Brendan 2 Sensor kitactiveNot AvailableNot AvailableNot AvailableTyrvaya 0.03 mg/spray nasal sprayINSTILL 1 SPRAY IN EACH NOSTRIL TWICE DAILY APPROXIMATELY 12 HOURS APARTactiveNot AvailableNot AvailableNot AvailablePaxlovid 300 mg (150 mg x 2)-100 mg tablets in a dose packTake 2 nirmatrelvir 150 mg pink-oval tablets and 1 ritonavir 100 mg white-oval tablet together twice daily for 5 days.*activeNot AvailableNot AvailableNot AvailableFreeStyle Brendan 3 Sensor deviceactiveNot AvailableNot AvailableNot AajfyfllkVcm-K-Msa Women's 50 Plus 0.4 mg tabletactiveNot Available Not AvailableNot Available Vitals Date Recorded Body height Body mass index (BMI) Body weight Provider Name and Address Organization Details Last Updated DateTime 12/26/2023 172.72 cm 35.7 kg/m2 423939.21 g William Zimmerman MD [address] [place] [address],[address], [place], [address], [place] - [facility] 12/26/2023 16:14:19 Social History Question Answer Notes LastModified by Organization D etails LastModified Time Tobacco Smoking Status Former Smoker William Zimmerman MD [address] [place] [address],[address], [place], [address], [facility] [place] Kfemrff73/11/2024 16:17:01When Did You Quit Smoking? 16+yearssincelastcigarettembraaschInformation not mutgbxqhw92/11/2024What Was The Date Of Your Most Recent Tobacco Screening?12/26/2023mbraaschInformation not vsuygvsta25/11/2024 Sex: Unknown Functional Status Question Answer Note LastModified by Organization D etails LastModified Time What is your level of alcohol consumption? None mbraaschInformation not gzqqkswom99/11/2024 Mental Status None recorded. Family History Nothing Reported. 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 He is emptying his bladder well and has no subjective complaints or difficulty voiding. Follow-up as needed.Urinary tract infectious crdmsrx60796713I20.0 - He will finish his course of ZckygtueJqvmtaxmy19467557D40.1 - Advised to continue clotrimazole cream as prescribed Health Concerns Section Related Observation LastModified by Organization Detai ls LastModified Time None Recorded Concern Status LastModified by Organization Details LastModified Time None Recorded Advance Directives Directive None Recorded Payers Insurance Date Sequence Insurance Name Policy Number Policy Norton Covered Member ID Norton Member ID Guarantor Name 12/26/2023 1 [employer] - DOS PRIO R TO 2021 - DUAL ELIGIBLE (MEDICARE REPLACEMENT/ADVANTAGE - HMO) [facility] Guillermo Allen [id number] Guillermo AllenUCARE - DOS ON OR AFTER 2022 - DUAL ELIGIBLE (MEDICARE REPLACEMENT/ADVANTAGE - HMO) [id number] T [id number] T [employer]UC[employer] - DOS PRIOR TO 2022 - DUAL ELIGIBLE (MEDICARE REPLACEMENT/ADVANTAGE - HMO)Guillermo Lara [id number] T [facility] Notes Date Note Type Note Provider Name and Address Orga nization Details Recorded Time 12/26/2023 text/html 73-year-old with multiple medical problems referred for recurrent UTIs. He is in a wheelchair and is on home oxygen. I reviewed the most recent clinic note from Dr. Parker dated 12/12/2023. Patienthas a history of buried penis and obstruction [...] prescribed cephalexin as well as topical clotrimazole forbalanitis. He continues to use the cream with some improvement. Postvoid residual today is 34 mL.William Zimmerman MD [address] [facility],[address], [place], [address], [facility] Stmfijy60/11/2024 17:32:03
[2025-02-13 15:30] VITALS: BP 114/64; PULSE 84; RESP 24; TEMP 36.9; O2SAT 93
--- NOTE | 2025-02-13 17:46 | ED.GENADULT ---
HPI - General Adult General Chief complaint: Extremity Pain/Injury, Upper Stated complaint: L shoulder pain Time Seen by Provider: 02/13/25 17:39 History of Present Illness HPI narrative: Arrives with complaints of atraumatic right shoulder pain for the past week. Reports being referred to PT by his primary but has been unable to get an appointment yet. Also complaining of itchiness to bilateral arms, and has multiple scratch wounds to arms. Alert and oriented, ABCs intact. 75-year-old man presenting to the emergency department along with family left shoulder pain that has been going on for months. Was seen approximately 2 weeks ago in primary care clinic and apparently given the choice to have an x-ray and/ or PT. He opted to go to PT but is unable to get in for quite some time. With escalating pain presents to the emergency department. Thinking that probably he needs that x-ray. No chest pain otherwise. No new shortness of breath. does have chronic shortness of breath with oxygen supplementation. Presents here with a concentrator. He does not recall any particular trauma. Thought that maybe it is related to how he often sleeps on his left side with his arm extended out ahead of him. Does not have radiating pain beyond what appears to be the anterior lateral shoulder. Most exacerbated by simply lifting his arm he says. Otherwise is complaining of some itchiness with bilateral arms and right lower leg. Does have a history of some diabetic neuropathy. Has been scratching his arms. Unfortunately today he actually tore the skin on his right forearm. There is a Band-Aid over non bleeding skin. Does not apparently have a diagnosis of eczema. is wearing a sock/ stocking that goes up to just below his knees which appears to apply some mild +compression. Does not particularly elevate his legs as sometimes that can make it harder for him to breathe. Continues to take 80 mg of Lasix daily. Last chemistries here from about a year ago with a BUN of 16 creatinine 0.6. Normal transaminases a little over a year ago. Related Data Home Medications ?Medication ?Instructions ?Recorded ?Confirmed albuterol sulfate 90 mcg/actuation inhalation 03/09/22 07/08/22 aerosol inhaler amlodipine 10 mg tablet mg 03/09/22 07/08/22 apixaban 5 mg tablet (Eliquis) mg 03/09/22 07/08/22 atomoxetine 100 mg capsule mg PO 03/09/22 07/08/22 budesonide-formoterol HFA 160 inhalation 03/09/22 07/08/22 mcg-4.5 mcg/actuation aerosol inhaler (Symbicort) calcium 600 mg (as tab PO 03/09/22 07/08/22 carbonate)-vitamin D3 10 mcg (400 unit) tablet carvedilol 3.125 mg tablet mg 03/09/22 07/08/22 clotrimazole-betamethasone 1 applic topical 03/09/22 07/08/22 %-0.05 % topical cream docusate sodium 100 mg capsule mg PO 03/09/22 07/08/22 furosemide 40 mg tablet mg 03/09/22 07/08/22 insulin aspart U-100 100 unit/mL subcut 03/09/22 07/08/22 (3 mL) subcutaneous pen (Novolog FlexPen U-100 Insulin aspart) insulin glargine 100 unit/mL (3 unit subcut 03/09/22 07/08/22 mL) subcutaneous pen (Lantus Solostar U-100 Insulin) ipratropium 0.5 mg-albuterol 3 mg ml inhalation 03/09/22 07/08/22 (2.5 mg base)/3 mL nebulization soln losartan 100 mg tablet mg 03/09/22 07/08/22 metformin 500 mg tablet mg 03/09/22 07/08/22 propylene glycol 0.6 % eye drops drp 03/09/22 07/08/22 (Systane Complete) rosuvastatin 10 mg tablet mg 03/09/22 07/08/22 tiotropium bromide 2.5 inhalation 03/09/22 07/08/22 mcg/actuation mist for inhalation (Spiriva Respimat) sulfamethoxazole 800 1 tab PO BID 09/07/23 02/21/24 mg-trimethoprim 160 mg tablet Previous Rx's ?Medication ?Instructions ?Recorded clotrimazole 1 % topical ointment 1 applic topical BID #56.7 grams 12/06/23 doxycycline monohydrate 100 mg 100 mg PO BID #14 tabs 02/21/24 tablet prednisone 20 mg tablet 20 mg PO BID #10 tabs 02/21/24 betamethasone valerate 0.1 % 1 applic topical BID-TID PRN #45 02/13/25 topical cream grams diclofenac sodium 3 % topical gel 1 applic topical BID PRN #100 grams 02/13/25 Allergies Allergy/AdvReac Type Severity Reaction Status Date / Time lisinopril Allergy Mild Cough Verified 02/13/25 15:29 Review of Systems Status of ROS: Reports: 6 or more systems reviewed and unremarkable except as noted in History and below [facility] Social History Smoking Status: Former smoker Do you use any of these nicotine containing products: None Second hand tobacco smoke exposure: No How often do you have a drink containing alcohol: never AUDIT-C Alcohol total score: 0 Non-prescribed substance use: denies use Exam Narrative: Exam Narrative: Very pleasant. NAD. Labored breathing with oxygen concentrator and nasal cannula in place. Initially I thought there was some swelling of the left shoulder with some atrophy of the musculature. I can not appreciate a joint effusion. He is tender I think at the biceps insertion anteriorly. Pain is most elicited with biceps flexion at the left shoulder as well as unassisted abduction and internal rotation of the shoulder. He describes pain at that point going down the anterior deltoid just a little bit on the inner upper arm. No AC joint tenderness. No tenderness in the area of the subacromial bursa at least to direct palpation but might be suggested by the internal rotation pain. He has good peripheral pulses. Arms otherwise are somewhat dry. A little edematous over the wrists and hands with faint erythema but no significant calor. He has numerous areas of excoriation. Line of irritation seems to stop at the short sleeve shirt line; goes up to there. Otherwise has similar findings with veneer redrier skin and excoriation on the right lower leg but that also is with 1+ pitting edema some erythema and minimal calor. also a couple larger scabs -nickel sized. not quite cellulitic. on the arms, rash/dryness does stop at the sleeves of his short sleeve button up shirt. skin otherwise appears to have emmoliant on it of some sort, containing menthol. Const: Vital Signs, click to edit/add: Vital Signs - 24 hr 02/13/25 15:30 Temperature 98.5 F Pulse Rate [Pulse Oximeter] 84 Respiratory Rate 24 Blood Pressure [Ri ght Upper Arm] 114/64 Pulse Oximetry 93 Oxygen Delivery Me thod Nasal Cannula Oxygen Flow Rate 2 Documenting provider has reviewed patient's vital signs: yes Course Vital Signs Vital signs: Initial Vital Signs Temperature 98.5 F 02/13/25 15:30 Temperature Source Temporal Artery Scan 02/13/25 15:30 Pulse Rate 84 02/13/25 15:30 Respiratory Rate 24 02/13/25 15:30 Blood Pressure 114/64 02/13/25 15:30 Blood Pressure Mean 80 02/13/25 15:30 Pulse Oximetry 93 02/13/25 15:30 Oxygen Delivery Method Nasal Cannula 02/13/25 15:30 Oxygen Flow Rate 2 02/13/25 15:30 Vital Signs Temperature 98.5 F 02/13/25 15:30 Pulse Rate 84 02/13/25 15:30 Respiratory Rate 24 02/13/25 15:30 Blood Pressure 114/64 02/13/25 15:30 Pulse Oximetry 93 02/13/25 15:30 Oxygen Delivery Method Nasal Cannula 02/13/25 15:30 Oxygen Flow Rate 2 02/13/25 15:30 Temperature 98.5 F 02/13/25 15:30 Pulse Rate 84 02/13/25 15:30 Respiratory Rate 24 02/13/25 15:30 Blood Pressure 114/64 02/13/25 15:30 Pulse Oximetry 93 02/13/25 15:30 Oxygen Delivery Method Nasal Cannula 02/13/25 15:30 Oxygen Flow Rate 2 02/13/25 15:30 Medical Decision Making MDM Narrative Medical decision making narrative: Physical exam might suggest some subacromial bursitis maybe a biceps tendinopathy. Appears to be having some pruritus related to dry skin. Seems initially isolated to areas that might be sun exposed however not exclusive. did use dry skin ointment at 1 point. Looks like has been prescribed clotrimazole- betamethasone at some time in the past. I did propose x-ray of the left shoulder. Perhaps some findings here most suggest cause, contributing factor to his shoulder pain. X-ray left shoulder independent reviewed by me does show some subtle subacromial area spurring Mr. Allen expressed some concerns about receiving steroid injections in the setting of diabetes. As further test I offer injection with anesthetic alone into the subacromial bursa perhaps as a test; that if it offers pain relief we are on the right track. And also that could at least offer some temporary relief to allow for better sleep tonight. Discussed risks and benefits including increased pain, infection, bleeding ultimately decided to proceed with this. After cleansing with Betadine in lateral pro chart under the acromion process injected 4 mL of 0.25% bupivacaine. Radiology over-read below Indication: Months of anterior shoulder pain Technique: Left shoulder, 3 views. Comparison: None. Findings/Impression: There is no acute fracture or dislocation. 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 There are prominent subacromial enthesophytes, which may predispose to external subacromial impingement. Soft tissues are unremarkable. Dictated by Harini Haynes MD @ 02/13/2025 6:33:25 PM Following injection with 4 mL of bupivacaine, noted significant improvement in symptoms. Able to abduct his shoulder without much discomfort. Good comfortable range of motion. Dispensed arm sling and Dirk wraps See patient discharge plan for further discussion Consider wearing arm sling for comfort over the next few days or as needed. Consider follow-up with physical therapy. I would think this would only help. I would message though your primary care provider with the diagnosis here and consideration for a steroid containing injection perhaps. I am prescribing some diclofenac anti-inflammatory nonsteroid gel that you might try on your shoulder. There might be some other options for you other than the betamethasone steroid cream that I am prescribing for your arms today. We discussed this also with your primary care provider. Be sure to wash <del>her</del> your hands after application. Try to avoid putting this cream on open wounds. And I would wear long sleeve shirts as it might limit further damage and itch. Again caution regarding diphenhydramine use. Can take for breakthrough itch. Also do wear Dirk wraps or compression stockings when up and about and even perhaps when you are sitting. Do your best to get your legs up. Dispensing 2 4 in Dirk wraps and 2 6 in Dirk wraps. The 4 in Dirk wrap can go around some of your foot and ankle and then the six-inch Dirk wrap up to your knee. It can be easier to adjust the pressure in these. Medical Records Medical records reviewed: Yes I reviewed the patient's medical records Discharge Plan Discharge Clinical Impression: Subacromial bursitis, Acute shoulder pain, Dermatitis Patient Disposition: Home w/ Parent or Adult Condition: Improved Instructions: Shoulder Bursitis (ED), Shoulder Pain (ED) Additional Instructions: Consider wearing arm sling for comfort over the next few days or as needed. Consider follow-up with physical therapy. I would think this would only help. I would message though your primary care provider with the diagnosis here and consideration for a steroid containing injection perhaps. I am prescribing some diclofenac anti-inflammatory nonsteroid gel that you might try on your shoulder. There might be some other options for you other than the betamethasone steroid cream that I am prescribing for your arms today. We discussed this also with your primary care provider. Be sure to wash her hands after application. Try to avoid putting this cream on open wounds. And I would wear long sleeve shirts as it might limit further damage and itch. Again caution regarding diphenhydramine use. Can take for breakthrough itch. Also do wear Dirk wraps or compression stockings when up and about and even perhaps when you are sitting. Do your best to get your legs up. Dispensing 2 4 in Dirk wraps and 2 6 in Dirk wraps. The 4 in Dirk wrap can go around some of your foot and ankle and then the six-inch Dirk wrap up to your knee. It can be easier to adjust the pressure in these. Activity Level: No Restrictions Discharge Diet: Regular Prescriptions: New betamethasone valerate 0.1 % cream 1 applic topical BID-TID PRNQty: 45 0RF diclofenac sodium 3 % gel 1 applic topical BID PRNQty: 100 0RF No Action sulfamethoxazole-trimethoprim 800-160 mg tablet 1 tab PO BID clotrimazole 1 % ointment 1 applic topical BID Qty: 56.7 0RF prednisone 20 mg tablet 20 mg PO BID Qty: 10 0RF doxycycline monohydrate 100 mg tablet 100 mg PO BID Qty: 14 0RF furosemide 40 mg tablet metformin 500 mg tablet ipratropium-albuterol 0.5 mg-3 mg(2.5 mg base)/3 mL solution for nebulization INHALATION carvedilol 3.125 mg tablet amlodipine 10 mg tablet clotrimazole-betamethasone 1-0.05 % cream TOPICAL docusate sodium 100 mg capsule PO albuterol sulfate 90 mcg/actuation HFA aerosol inhaler INHALATION losartan 100 mg tablet insulin aspart U-100 [Novolog FlexPen U-100 Insulin] 100 unit/mL (3 mL) insulin pen SUBCUT rosuvastatin 10 mg tablet atomoxetine 100 mg capsule PO calcium carbonate-vitamin D3 600 mg-10 mcg (400 unit) tablet PO budesonide-formoterol [Symbicort] 160-4.5 mcg/actuation HFA aerosol inhaler INHALATION insulin glargine [Lantus Solostar U-100 Insulin] 100 unit/mL (3 mL) insulin pen SUBCUT Systane Complete 0.6 % drops Patient Comments: INSTILL ONE DROP INTO BOTH EYES NEEDED Spiriva Respimat 2.5 mcg/actuation mist INHALATION Eliquis 5 mg tablet Follow Up/Referrals: Karen Ibarra PASasha [Primary Care Provider, Family Practice] Stand Alone Forms: [employer] Info Instructions
--- NOTE | 2025-02-13 18:00 | CRLHL7_ITS ---
For Patients: As a result of the Cures Act, medical imaging exams and procedure reports are released immediately into your electronic medical record. You may view this report before your referring provider. If you have questions, please contact your health care provider. Indication: Months of anterior shoulder pain Technique: Left shoulder, 3 views. Comparison: None. Findings/Impression: There is no acute fracture or dislocation. 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 There are prominent subacromial enthesophytes, which may predispose to external subacromial impingement. Soft tissues are unremarkable. Dictated by Harini Haynes MD @ 02/13/2025 6:33:25 PM (Electronically Signed)
== END 2025-02-13 20:04 | disposition home or self-care (01) ==
PROVIDERS: Emergency Provider Family Medicine; PCP Physician Assistant Medical
DX: M75.52 Bursitis of left shoulder (principal); L30.9 Dermatitis, unspecified
CPT/HCPCS: 73030; 99283; 99284